=== PATIENT | male | born 1950 | race Caucasian/White ===

== ENCOUNTER 2019-08-16 09:57 | Observation (INO) | payer BC, MEDICARE ==
[2019-08-16] MEDS ORDERED: Sodium Chloride 0.9% 10 ML Syringe FLUSH PRN (10:19)
[2019-08-16] MEDS ORDERED: Sodium Chloride 0.9% 500 ML IV ONE (10:20)
--- NOTE | 2019-08-16 10:24 | EDM.PDOC ---
ED HPI GENERAL MEDICAL PROBLEM - General Chief Complaint: Gastrointestinal Problem Stated Complaint: WEAK, BLOOD IN STOOL Time Seen by Provider: 08/16/19 10:21 Source of Information: Reports: Patient History Limitations: Reports: No Limitations - History of Present Illness INITIAL COMMENTS - FREE TEXT/NARRATIVE: Presents with three episodes of bright red blood per rectum since last night ( 2200, 0300, 0600), patient estimates blood loss at @1 cup per episode. Denies abdominal pain, rectal pain, or N/V. No prior h/o GI bleed. On no anticoagulants except ASA 81mg daily. Drinks EtOH occasionally. Denies use of NSAIDs recently. Complains of cough x 5 days and generalized weakness since last night. He did receive the flu shot this season. Onset Date: 08/15/19 Onset Time: 22:00 - Related Data Allergies Allergy/AdvReac Type Severity Reaction Status Date / Time No Known Allergies Allergy Verified 04/28/13 23:31 Home Meds: Home Meds Aspirin [[place] Aspirin EC] 81 mg PO DAILY 06/27/14 [History] Cholecalciferol (Vitamin D3) [Vitamin D3] 1,000 units PO DAILY 06/27/14 [History ] ClonazePAM [KlonoPIN] 0.5 mg PO ASDIRECTED PRN 06/27/14 [History] Furosemide 40 mg PO DAILY 06/27/14 [History] Levothyroxine [Synthroid] 50 mcg PO DAILY 06/27/14 [History] Lutein Extract/Zeaxanthin Ext [Lutein 15 MG Softgel] 10 mg PO DAILY 06/27/14 [ History] Mirtazapine [Remeron] 15 mg PO DAILY 06/27/14 [History] Multivitamin [Multivitamins] 1 each PO DAILY 06/27/14 [History] Pravastatin [Pravachol] 40 mg PO DAILY 06/27/14 [History] Ranitidine HCl [Ranitidine] 150 mg PO DAILY PRN 06/27/14 [History] amLODIPine Besylate [Amlodipine Besylate] 5 mg PO DAILY 06/27/14 [History] Tamsulosin HCl 0.4 mg PO DAILY 08/16/19 [History] allopurinoL [Zyloprim] 300 mg PO DAILY 08/16/19 [History] Past Medical History Cardiovascular History: Reports: High Cholesterol, Hypertension. Denies: CAD, Heart Failure Gastrointestinal History: Reports: Diverticulosis, GERD Genitourinary History: Reports: Other (See Below) Other Genitourinary History: reports left kidney functioning in low 10's percent. right kidney functioning well/ has been on dialysis before Endocrine/Metabolic History: Reports: Hypothyroidism - Past Surgical History HEENT Surgical History: Reports: Naso-Sinus Surgery, Tonsillectomy Social & Family History - Tobacco Use Tobacco Use Within Last Twelve Months: No - Alcohol Use Alcohol Use History: Yes Alcohol Use Frequency: Rarely - Recreational Drug Use Recreational Drug Use: No ED ROS GENERAL - Review of Systems Review Of Systems: Comprehensive ROS is negative, except as noted in HPI. ED EXAM, GI/ABD - Physical Exam Exam: See Below Exam Limited By: No Limitations General Appearance: Alert, WD/WN, No Apparent Distress Ears: Normal External Exam Nose: Normal Inspection Throat/Mouth: No Airway Compromise Head: Atraumatic, Normocephalic Neck: Normal Inspection, Supple, Full Range of Motion Respiratory/Chest: No Respiratory Distress, Lungs Clear, Normal Breath Sounds Cardiovascular: Regular Rate, Rhythm, No Murmur GI/Abdominal Exam: Soft, Non-Tender, No Distention Rectal (Males) Exam: Other (No external hemorrhoids noted) Back Exam: Full Range of Motion Extremities: Normal Range of Motion Neurological: Alert, Normal Cognition Psychiatric: Normal Affect, Normal Mood Skin Exam: Warm, Dry, Intact Course - Vital Signs Last Recorded V/S: Last Vital Signs Temp 37.0 C 08/16/19 12:52 Pulse 72 08/16/19 12:52 Resp 18 08/16/19 12:52 BP 144/75 H 08/16/19 12:52 Pulse Ox 100 08/16/19 12:52 - Orders/Labs/Meds Orders: Active Orders 24 hr Category Date Time Status Admission Status [Patient Status] [ADT] Routine ADT 08/16/19 12:41 Ordered Abdomen Pelvis wo Cont [CT] Stat Exams 08/16/19 10:26 Taken Sodium Chloride 0.9% [Saline Flush] Med 08/16/19 10:19 Active 10 ml FLUSH ASDIRECTED PRN Saline Lock Insert [OM.PC] Routine Oth 08/16/19 10:19 Ordered Medication Orders Sodium Chloride (Saline Flush) 10 ml FLUSH ASDIRECTED PRN PRN Reason: Keep Vein Open Labs: Laboratory Tests 08/16/19 08/16/19 08/16/19 Range/Units 10:35 10:35 10:35 WBC 5.7 (4.5-12.0) X10-3/uL RBC 3.97 L (4.30-5.75) x10(6)uL Hgb 11.2 L (13.5-17.8) g/dL Hct 34.1 (30.0-51.3) % MCV 85.9 (80-96) fL MCH 28.2 (27.7-33.6) pg MCHC 32.8 (32.2-35.4) g/dL RDW 15.6 H (11.5-15.5) % Plt Count 290 (125-369) X10(3)uL MPV 7.9 (7.4-10.4) fL Neut % (Auto) 78.0 (46-82) % Lymph % (Auto) 11.5 L (13-37) % [place] % (Auto) 8.2 (4-12) % Eos % (Auto) 1 (1.0-5.0) % Baso % (Auto) 2 (0-2) % Neut # (Auto) 4.4 (1.6-8.3) # Lymph # (Auto) 0.7 (0.6-5.0) # [place] # (Auto) 0.5 (0.0-1.3) # Eos # (Auto) 0.0 (0.0-0.8) # Baso # (Auto) 0.1 (0.0-0.2) # PT 9.9 (8.7-11.1) sec INR 1.02 (0.89-1.13) Sodium 144 (135-145) mmol/L Potassium 4.1 (3.5-5.3) mmol/L Chloride 107 (100-110) mmol/L Carbon Dioxide 25 (21-32) mmol/L BUN 19 H (7-18) mg/dL Creatinine 1.6 H (0.70-1.30) mg/dL Est Cr Clr Drug Dosing 47.86 mL/min Estimated GFR (MDRD) 43 L (>60) BUN/Creatinine Ratio 11.9 (9-20) Glucose 137 H (80-116) mg/dL Calcium 8.8 (8.6-10.2) mg/dL Total Bilirubin 0.3 (0.1-1.3) mg/dL AST 18 (5-25) IU/L ALT 23 (12-36) U/L Alkaline Phosphatase 77 (56-112) IU/L Total Protein 6.9 (6.0-8.0) g/dL Albumin 3.1 L (3.2-4.6) g/dL Globulin 3.8 g/dL Albumin/Globulin Ratio 0.8 Blood Type Gel Antibody Screen 08/16/19 Range/Units 10:35 WBC (4.5-12.0) X10-3/uL RBC (4.30-5.75) x10(6)uL Hgb (13.5-17.8) g/dL Hct (30.0-51.3) % MCV (80-96) fL MCH (27.7-33.6) pg MCHC (32.2-35.4) g/dL RDW (11.5-15.5) % Plt Count (125-369) X10(3)uL MPV (7.4-10.4) fL Neut % (Auto) (46-82) % Lymph % (Auto) (13-37) % [place] % (Auto) (4-12) % Eos % (Auto) (1.0-5.0) % Baso % (Auto) (0-2) % Neut # (Auto) (1.6-8.3) # Lymph # (Auto) (0.6-5.0) # [place] # (Auto) (0.0-1.3) # Eos # (Auto) (0.0-0.8) # Baso # (Auto) (0.0-0.2) # PT (8.7-11.1) sec INR (0.89-1.13) Sodium (135-145) mmol/L Potassium (3.5-5.3) mmol/L Chloride (100-110) mmol/L Carbon Dioxide (21-32) mmol/L BUN (7-18) mg/dL Creatinine (0.70-1.30) mg/dL Est Cr Clr Drug Dosing mL/min Estimated GFR (MDRD) (>60) BUN/Creatinine Ratio (9-20) Glucose (80-116) mg/dL Calcium (8.6-10.2) mg/dL Total Bilirubin (0.1-1.3) mg/dL AST (5-25) IU/L ALT (12-36) U/L Alkaline Phosphatase (56-112) IU/L Total Protein (6.0-8.0) g/dL Albumin (3.2-4.6) g/dL Globulin g/dL Albumin/Globulin Ratio Blood Type A POSITIVE Gel Antibody Screen Negative Microbiology 08/16/19 10:15 Influenza Type A Antigen Screen - Final Nasopharyngeal Swab Positive Influenza A Ag Influenza Type B Antigen Screen - Final NEGATIVE INFLUENZA B VIRUS AG REFERENCE RANGE: NEGATIVE Meds: Medications Generic Name Dose Route Start Last Admin Trade Name Freq PRN Reason Stop Dose Admin Sodium Chloride 10 ml 08/16/19 10:19 Saline Flush FLUSH ASDIRECTED PRN Keep Vein Open Discontinued Medications Generic Name Dose Route Start Last Admin Trade Name Freq PRN Reason Stop Dose Admin Sodium Chloride 500 mls @ 500 mls/hr 08/16/19 10:20 08/16/19 11:24 Normal Saline IV 08/16/19 11:19 500 mls/hr .BOLUS ONE Administration - Radiology Interpretation Free Text/Narrative:: CT Abd/Pelvis w/o contrast: No acute abdominal or pelvic process. Diverticulosis. Stable severe left hydronephrosis. Stable 4.1 cm right adrenal adenoma. Hepatic steatosis. 5 mm RLL pulmonary nodule. - Re-Assessments/Exams Free Text/Narrative Re-Assessment/Exam: 08/16/19 12:44 No rectal bleeding in the ED. Dr. Christine consulted, recommends transfer for IR embolization if patient rebleeds , otherwise outpatient follow up for Colonoscopy. Will admit to [facility] for observation, Dr. Dinero. Departure - Departure Time of Disposition: 13:00 Disposition: Refer to Observation Condition: Fair Clinical Impression: Lower GI bleed, Influenza A - Discharge Information *PRESCRIPTION DRUG MONITORING PROGRAM REVIEWED*: No *COPY OF PRESCRIPTION DRUG MONITORING REPORT IN PATIENT LEILA: Not Applicable Referrals: Abundio Aguilar MD [Primary Care Provider] - Forms: ED Department Discharge Sepsis Event Note - Focused Exam Vital Signs: Vital Signs Temp Pulse Resp BP Pulse Ox 08/16/19 12:52 37.0 C 72 18 144/75 H 100 08/16/19 10:20 36.5 C 88 20 141/77 H 100 Date Exam was Performed: 08/16/19 Time Exam was Performed: 12:59 - My Orders Last 24 Hours: My Active Orders 08/16/19 10:19 Sodium Chloride 0.9% [Saline Flush] 10 ml FLUSH ASDIRECTED PRN Saline Lock Insert [OM.PC] Routine 08/16/19 10:26 Abdomen Pelvis wo Cont [CT] Stat 08/16/19 12:41 Admission Status [Patient Status] [ADT] Routine - Assessment/Plan Last 24 Hours: My Active Orders 08/16/19 10:19 Sodium Chloride 0.9% [Saline Flush] 10 ml FLUSH ASDIRECTED PRN Saline Lock Insert [OM.PC] Routine 08/16/19 10:26 Abdomen Pelvis wo Cont [CT] Stat 08/16/19 12:41 Admission Status [Patient Status] [ADT] Routine
[2019-08-16] MEDS ORDERED: Non-Formulary Medication 1 Each (Ranitidine Hcl [Ranitidine] 150 MG) PO PRN (15:13)
--- NOTE | 2019-08-16 15:26 | PCM.HP.2 ---
H&P History of Present Illness - General Date of Service: 08/16/19 Admit Problem/Dx: Admission Diagnosis/Problem Admission Diagnosis/Problem Gastrointestinal hemorrhage Source of Information: Patient History Limitations: Reports: No Limitations - History of Present Illness Initial Comments - Free Text/Narative: This a 69-year-old male patient but states he started having hematochezia about 10:30 or 11 PM last night. He had another stool at 3:30 AM and a 6:30 AM. By 9: 30 it had stopped. He came to the ER and he has noticeable recently. He has history of diverticulosis. The surgeon evaluated him felt that he should be admitted for observation. He has no abdominal pain, nausea, vomiting. The beginning of the week he had some coughing little chills. No fevers, no sore throat. Check influenza A and was positive in the ER. He had a colonoscopy around 2014. He denies dizziness. - Related Data Allergies/Adverse Reactions: Allergies Allergy/AdvReac Type Severity Reaction Status Date / Time No Known Allergies Allergy Verified 08/16/19 13:53 Home Medications: Home Meds Aspirin [[place] Aspirin EC] 81 mg PO BEDTIME 06/27/14 [History] Cholecalciferol (Vitamin D3) [Vitamin D3] 1,000 units PO DAILY 06/27/14 [History ] Furosemide 40 mg PO DAILY 06/27/14 [History] Mirtazapine [Remeron] 15 mg PO BEDTIME 06/27/14 [History] Multivitamin [Multivitamins] 1 each PO DAILY 06/27/14 [History] Pravastatin [Pravachol] 40 mg PO BEDTIME 06/27/14 [History] Ranitidine HCl [Ranitidine] 150 mg PO DAILY PRN 06/27/14 [History] amLODIPine Besylate [Amlodipine Besylate] 5 mg PO DAILY 06/27/14 [History] Levothyroxine 75 mcg PO DAILY 08/16/19 [History] Lutein 10 mg PO DAILY 08/16/19 [History] Tamsulosin HCl 0.4 mg PO BEDTIME 08/16/19 [History] allopurinoL [Zyloprim] 300 mg PO DAILY 08/16/19 [History] Past Medical History Cardiovascular History: Reports: High Cholesterol, Hypertension Gastrointestinal History: Reports: Diverticulosis, GERD Genitourinary History: Reports: Other (See Below) Other Genitourinary History: reports left kidney functioning in low 10's percent. right kidney functioning well/ has been on dialysis before Endocrine/Metabolic History: Reports: Hypothyroidism - Past Surgical History HEENT Surgical History: Reports: Naso-Sinus Surgery, Tonsillectomy GI Surgical History: Reports: Colonoscopy Social & Family History - Tobacco Use Smoking Status *Q: Former Smoker Used Tobacco, but Quit: Yes Month/Year Tobacco Last Used: 40 years ago - Caffeine Use Caffeine Use: Reports: Coffee - Recreational Drug Use Recreational Drug Use: No H&P Review of Systems - Review of Systems: Review Of Systems: See Below General: Reports: Chills HEENT: Reports: No Symptoms Pulmonary: Reports: No Symptoms Cardiovascular: Reports: No Symptoms Gastrointestinal: Reports: Hematemesis Genitourinary: Reports: No Symptoms Musculoskeletal: Reports: No Symptoms Skin: Reports: No Symptoms Psychiatric: Reports: No Symptoms Neurological: Reports: No Symptoms Hematologic/Lymphatic: Reports: No Symptoms Immunologic: Reports: No Symptoms Exam - Exam Exam: See Below - Vital Signs Vital Signs: Last Vital Signs Temp 98.7 F 08/16/19 13:30 Pulse 84 08/16/19 13:30 Resp 20 08/16/19 13:30 BP 139/81 08/16/19 13:30 Pulse Ox 95 08/16/19 13:30 Weight: 310 lb 11.2 oz - Exam General: Alert, Oriented, Cooperative HEENT: Conjunctiva Clear, Hearing Intact, Mucosa Moist & [place], Posterior Pharynx Clear, TMs Clear Neck: Supple, Trachea Midline. No: Carotid Bruit Lungs: Clear to Auscultation, Normal Respiratory Effort Cardiovascular: Regular Rate, Regular Rhythm. No: Tachycardia, Systolic Murmur GI/Abdominal Exam: Normal Bowel Sounds, Soft, Non-Tender, No Organomegaly, No Distention, No Abnormal Bruit, No Mass Rectal (Males) Exam: Other (External rectal done by the ER doctor's report is negative for hemorrhage.) Extremities: Normal Inspection, Normal Range of Motion, Non-Tender, No Pedal Edema Skin: Warm, Dry, Intact Neurological: Normal Gait, Normal Speech, Normal Tone Neuro Extensive - Mental Status: Alert, Oriented x3, Normal Mood/Affect, Normal Cognition, Memory Intact Neuro Extensive - Motor, Sensory, Reflexes: Normal Gait Psychiatric: Alert, Normal Affect, Normal Mood - Patient Data Lab Results Last 24 hrs: Laboratory Results - last 24 hr 08/16/19 08/16/19 08/16/19 Range/Units 10:35 10:35 10:35 WBC 5.7 (4.5-12.0) X10-3/uL RBC 3.97 L (4.30-5.75) x10(6)uL Hgb 11.2 L (13.5-17.8) g/dL Hct 34.1 (30.0-51.3) % MCV 85.9 (80-96) fL MCH 28.2 (27.7-33.6) pg MCHC 32.8 (32.2-35.4) g/dL RDW 15.6 H (11.5-15.5) % Plt Count 290 (125-369) X10(3)uL MPV 7.9 (7.4-10.4) fL Neut % (Auto) 78.0 (46-82) % Lymph % (Auto) 11.5 L (13-37) % [place] % (Auto) 8.2 (4-12) % Eos % (Auto) 1 (1.0-5.0) % Baso % (Auto) 2 (0-2) % Neut # (Auto) 4.4 (1.6-8.3) # Lymph # (Auto) 0.7 (0.6-5.0) # [place] # (Auto) 0.5 (0.0-1.3) # Eos # (Auto) 0.0 (0.0-0.8) # Baso # (Auto) 0.1 (0.0-0.2) # PT 9.9 (8.7-11.1) sec INR 1.02 (0.89-1.13) Sodium 144 (135-145) mmol/L Potassium 4.1 (3.5-5.3) mmol/L Chloride 107 (100-110) mmol/L Carbon Dioxide 25 (21-32) mmol/L BUN 19 H (7-18) mg/dL Creatinine 1.6 H (0.70-1.30) mg/dL Est Cr Clr Drug Dosing 47.86 mL/min Estimated GFR (MDRD) 43 L (>60) BUN/Creatinine Ratio 11.9 (9-20) Glucose 137 H (80-116) mg/dL Calcium 8.8 (8.6-10.2) mg/dL Total Bilirubin 0.3 (0.1-1.3) mg/dL AST 18 (5-25) IU/L ALT 23 (12-36) U/L Alkaline Phosphatase 77 (56-112) IU/L Total Protein 6.9 (6.0-8.0) g/dL Albumin 3.1 L (3.2-4.6) g/dL Globulin 3.8 g/dL Albumin/Globulin Ratio 0.8 Blood Type Gel Antibody Screen 08/16/19 Range/Units 10:35 WBC (4.5-12.0) X10-3/uL RBC (4.30-5.75) x10(6)uL Hgb (13.5-17.8) g/dL Hct (30.0-51.3) % MCV (80-96) fL MCH (27.7-33.6) pg MCHC (32.2-35.4) g/dL RDW (11.5-15.5) % Plt Count (125-369) X10(3)uL MPV (7.4-10.4) fL Neut % (Auto) (46-82) % Lymph % (Auto) (13-37) % [place] % (Auto) (4-12) % Eos % (Auto) (1.0-5.0) % Baso % (Auto) (0-2) % Neut # (Auto) (1.6-8.3) # Lymph # (Auto) (0.6-5.0) # [place] # (Auto) (0.0-1.3) # Eos # (Auto) (0.0-0.8) # Baso # (Auto) (0.0-0.2) # PT (8.7-11.1) sec INR (0.89-1.13) Sodium (135-145) mmol/L Potassium (3.5-5.3) mmol/L Chloride (100-110) mmol/L Carbon Dioxide (21-32) mmol/L BUN (7-18) mg/dL Creatinine (0.70-1.30) mg/dL Est Cr Clr Drug Dosing mL/min Estimated GFR (MDRD) (>60) BUN/Creatinine Ratio (9-20) Glucose (80-116) mg/dL Calcium (8.6-10.2) mg/dL Total Bilirubin (0.1-1.3) mg/dL AST (5-25) IU/L ALT (12-36) U/L Alkaline Phosphatase (56-112) IU/L Total Protein (6.0-8.0) g/dL Albumin (3.2-4.6) g/dL Globulin g/dL Albumin/Globulin Ratio Blood Type A POSITIVE Gel Antibody Screen Negative Result Diagrams: 08/16/19 10:35 08/16/19 10:35 John Results Last 24 hrs: Microbiology 08/16/19 10:15 Influenza Type A Antigen Screen - Final Nasopharyngeal Swab Positive Influenza A Ag Influenza Type B Antigen Screen - Final NEGATIVE INFLUENZA B VIRUS AG REFERENCE RANGE: NEGATIVE Sepsis Event Note - Evaluation Sepsis Screening Result: No Definite Risk - Focused Exam Vital Signs: Vital Signs Temp Temp Pulse Resp BP Pulse Ox 08/16/19 13:30 98.7 F 84 20 139/81 95 08/16/19 12:52 98.6 F 72 18 144/75 H 100 08/16/19 10:20 97.7 F 88 20 141/77 H 100 Date Exam was Performed: 08/16/19 Time Exam was Performed: 15:20 - Problem List (1) Palliative care status SNOMED Code(s): 254090159 ICD Code: Z51.5 - ENCOUNTER FOR PALLIATIVE CARE Status: Acute Current Visit: Yes (2) Influenza A SNOMED Code(s): 707115524 ICD Code: J10.1 - FLU DUE TO OTH IDENT INFLUENZA VIRUS W OTH RESP MANIFEST Status: Acute Current Visit: Yes (3) Lower GI bleed SNOMED Code(s): 22899887 ICD Code: K92.2 - GASTROINTESTINAL HEMORRHAGE, UNSPECIFIED Status: Acute Current Visit: Yes (4) Acute kidney injury SNOMED Code(s): 66967624, 75734961 ICD Code: N17.9 - ACUTE KIDNEY FAILURE, UNSPECIFIED Status: Acute Current Visit: Yes Problem List Initiated/Reviewed/Updated: Yes Orders Last 24hrs: Active Orders 24 hr Category Date Time Status Admission Status [Patient Status] [ADT] Routine ADT 08/16/19 12:41 Active Up ad Jeff [RC] ASDIRECTED Care 08/16/19 15:15 Active Clear Liquid Diet [DIET] Diet 08/16/19 Dinner Active Abdomen Pelvis wo Cont [CT] Stat Exams 08/16/19 10:26 Taken BASIC METABOLIC PANEL,BMP [CHEM] AM Lab 08/17/19 06:00 Ordered HEMOGLOBIN/HEMATOCRIT,HH [HEME] Q4H Lab 08/16/19 16:30 Ordered HEMOGLOBIN/HEMATOCRIT,HH [HEME] Q4H Lab 08/16/19 20:30 Ordered HEMOGLOBIN/HEMATOCRIT,HH [HEME] Q4H Lab 08/17/19 00:30 Ordered HEMOGLOBIN/HEMATOCRIT,HH [HEME] Q4H Lab 08/17/19 04:30 Ordered Cholecalciferol (Vitamin D3) [Vitamin D3] Med 08/17/19 09:00 Ordered DOSE mcg PO DAILY Furosemide [Lasix] Med 08/17/19 09:00 Ordered 40 mg PO DAILY Levothyroxine Med 08/17/19 09:00 Ordered 75 mcg PO DAILY Lutein Med 08/17/19 09:00 Ordered 10 mg PO DAILY Mirtazapine [Remeron] Med 08/16/19 21:00 Ordered 15 mg PO BEDTIME Multivitamin [Multivitamins] Med 08/17/19 09:00 Ordered 1 each PO DAILY Pravastatin [Pravachol] Med 08/16/19 21:00 Ordered 40 mg PO BEDTIME Ranitidine HCl [Ranitidine] Med 08/16/19 15:13 Ordered 150 mg PO DAILY PRN Sodium Chloride 0.9% [Saline Flush] Med 08/16/19 10:19 Active 10 ml FLUSH ASDIRECTED PRN Tamsulosin [Flomax] Med 08/16/19 21:00 Ordered 0.4 mg PO BEDTIME allopurinoL [Zyloprim] Med 08/17/19 09:00 Ordered 300 mg PO DAILY amLODIPine [Norvasc] Med 08/17/19 09:00 Ordered 5 mg PO DAILY SCD [Sequential Compression Device] [OM.PC] Routine Oth 08/16/19 15:16 Ordered Saline Lock Insert [OM.PC] Routine Oth 08/16/19 10:19 Ordered Code Status [Resuscitation Status] Routine Resus Stat 08/16/19 14:35 Ordered Medication Orders Allopurinol (Zyloprim) 300 mg PO DAILY SAIDA Amlodipine Besylate (Norvasc) 5 mg PO DAILY SAIDA Cholecalciferol (Vitamin D3) mcg PO DAILY SAIDA Furosemide (Lasix) 40 mg PO DAILY SAIDA Levothyroxine Sodium (Levothyroxine) 75 mcg PO DAILY SAIDA Lutein (Lutein) 10 mg PO DAILY SAIDA Mirtazapine (Remeron) 15 mg PO BEDTIME SAIDA Non-Formulary Medication (Multivitamin [Multivitamins]) 1 each PO DAILY SAIDA Non-Formulary Medication (Pravastatin [Pravachol]) 40 mg PO BEDTIME SAIDA Non-Formulary Medication (Ranitidine Hcl [Ranitidine]) 150 mg PO DAILY PRN PRN Reason: Heartburn Sodium Chloride (Saline Flush) 10 ml FLUSH ASDIRECTED PRN PRN Reason: Keep Vein Open Tamsulosin HCl (Flomax) 0.4 mg PO BEDTIME SAIDA Assessment/Plan Comment:: 1. Admit for observation. 2. Per Dr. Christine if the patient starts to bleed again he should be transferred to [place] for interventional radiology. If he does not have any further bleeding overnight he can go home. 3. Up ad jeff. 4. Clear liquid diet 5. Hold anticoagulation including aspirin. Use SCD for DVT prophylaxis. 6. Reorder his regular medications except aspirin. 7. Repeat hemoglobin every 4 hours. 8. Cross and type II units RBCs. 9. Week. BMP in a.m. - Mortality Measure Prognosis:: Good
[2019-08-16] MEDS ORDERED: Mirtazapine 15 MG Tab *PTOM PO SCH (21:00)
[2019-08-16] MEDS ORDERED: Tamsulosin 0.4 MG Cap.ER *PTOM PO SCH (21:00)
--- NOTE | 2019-08-17 07:59 | PCM.PN ---
- General Info Date of Service: 08/17/19 Admission Dx/Problem (Free Text): Patient states she's had no bloody stools since she's been admitted. His no abdominal pain, dizziness, chest pain or shortness of breath. He says he has not had a BM since she's been you. He is passing gas and no blood was coming out. - Patient Data Vitals - Most Recent: Last Vital Signs Temp 97.2 F 08/17/19 00:00 Pulse 77 08/17/19 00:00 Resp 18 08/17/19 00:00 BP 144/88 H 08/17/19 00:00 Pulse Ox 95 08/17/19 00:00 Weight - Most Recent: 310 lb 11.2 oz Lab Results Last 24 Hours: Laboratory Results - last 24 hr 08/16/19 08/16/19 08/16/19 Range/Units 10:35 10:35 10:35 WBC 5.7 (4.5-12.0) X10-3/uL RBC 3.97 L (4.30-5.75) x10(6)uL Hgb 11.2 L (13.5-17.8) g/dL Hct 34.1 (30.0-51.3) % MCV 85.9 (80-96) fL MCH 28.2 (27.7-33.6) pg MCHC 32.8 (32.2-35.4) g/dL RDW 15.6 H (11.5-15.5) % Plt Count 290 (125-369) X10(3)uL MPV 7.9 (7.4-10.4) fL Neut % (Auto) 78.0 (46-82) % Lymph % (Auto) 11.5 L (13-37) % [place] % (Auto) 8.2 (4-12) % Eos % (Auto) 1 (1.0-5.0) % Baso % (Auto) 2 (0-2) % Neut # (Auto) 4.4 (1.6-8.3) # Lymph # (Auto) 0.7 (0.6-5.0) # [place] # (Auto) 0.5 (0.0-1.3) # Eos # (Auto) 0.0 (0.0-0.8) # Baso # (Auto) 0.1 (0.0-0.2) # PT 9.9 (8.7-11.1) sec INR 1.02 (0.89-1.13) Sodium 144 (135-145) mmol/L Potassium 4.1 (3.5-5.3) mmol/L Chloride 107 (100-110) mmol/L Carbon Dioxide 25 (21-32) mmol/L BUN 19 H (7-18) mg/dL Creatinine 1.6 H (0.70-1.30) mg/dL Est Cr Clr Drug Dosing 47.86 mL/min Estimated GFR (MDRD) 43 L (>60) BUN/Creatinine Ratio 11.9 (9-20) Glucose 137 H (80-116) mg/dL Calcium 8.8 (8.6-10.2) mg/dL Total Bilirubin 0.3 (0.1-1.3) mg/dL AST 18 (5-25) IU/L ALT 23 (12-36) U/L Alkaline Phosphatase 77 (56-112) IU/L Total Protein 6.9 (6.0-8.0) g/dL Albumin 3.1 L (3.2-4.6) g/dL Globulin 3.8 g/dL Albumin/Globulin Ratio 0.8 Blood Type Gel Antibody Screen 08/16/19 08/16/19 08/16/19 Range/Units 10:35 16:30 21:00 WBC (4.5-12.0) X10-3/uL RBC (4.30-5.75) x10(6)uL Hgb 10.6 L 9.9 L (13.5-17.8) g/dL Hct 32.0 30.6 (30.0-51.3) % MCV (80-96) fL MCH (27.7-33.6) pg MCHC (32.2-35.4) g/dL RDW (11.5-15.5) % Plt Count (125-369) X10(3)uL MPV (7.4-10.4) fL Neut % (Auto) (46-82) % Lymph % (Auto) (13-37) % [place] % (Auto) (4-12) % Eos % (Auto) (1.0-5.0) % Baso % (Auto) (0-2) % Neut # (Auto) (1.6-8.3) # Lymph # (Auto) (0.6-5.0) # [place] # (Auto) (0.0-1.3) # Eos # (Auto) (0.0-0.8) # Baso # (Auto) (0.0-0.2) # PT (8.7-11.1) sec INR (0.89-1.13) Sodium (135-145) mmol/L Potassium (3.5-5.3) mmol/L Chloride (100-110) mmol/L Carbon Dioxide (21-32) mmol/L BUN (7-18) mg/dL Creatinine (0.70-1.30) mg/dL Est Cr Clr Drug Dosing mL/min Estimated GFR (MDRD) (>60) BUN/Creatinine Ratio (9-20) Glucose (80-116) mg/dL Calcium (8.6-10.2) mg/dL Total Bilirubin (0.1-1.3) mg/dL AST (5-25) IU/L ALT (12-36) U/L Alkaline Phosphatase (56-112) IU/L Total Protein (6.0-8.0) g/dL Albumin (3.2-4.6) g/dL Globulin g/dL Albumin/Globulin Ratio Blood Type A POSITIVE Gel Antibody Screen Negative 08/17/19 08/17/19 Range/Units 06:30 06:30 WBC 5.1 (4.5-12.0) X10-3/uL RBC 3.45 L (4.30-5.75) x10(6)uL Hgb 9.7 L (13.5-17.8) g/dL Hct 29.5 L (30.0-51.3) % MCV 85.6 (80-96) fL MCH 28.0 (27.7-33.6) pg MCHC 32.7 (32.2-35.4) g/dL RDW 15.8 H (11.5-15.5) % Plt Count 268 (125-369) X10(3)uL MPV 7.2 L (7.4-10.4) fL Neut % (Auto) 59.5 (46-82) % Lymph % (Auto) 27.8 (13-37) % [place] % (Auto) 9.0 (4-12) % Eos % (Auto) 3 (1.0-5.0) % Baso % (Auto) 1 (0-2) % Neut # (Auto) 3.1 (1.6-8.3) # Lymph # (Auto) 1.4 (0.6-5.0) # [place] # (Auto) 0.5 (0.0-1.3) # Eos # (Auto) 0.1 (0.0-0.8) # Baso # (Auto) 0.0 (0.0-0.2) # PT (8.7-11.1) sec INR (0.89-1.13) Sodium 146 H (135-145) mmol/L Potassium 4.6 (3.5-5.3) mmol/L Chloride 110 (100-110) mmol/L Carbon Dioxide 28 (21-32) mmol/L BUN 16 (7-18) mg/dL Creatinine 1.5 H (0.70-1.30) mg/dL Est Cr Clr Drug Dosing 51.05 mL/min Estimated GFR (MDRD) 46 L (>60) BUN/Creatinine Ratio 10.7 (9-20) Glucose 99 (80-116) mg/dL Calcium 8.7 (8.6-10.2) mg/dL Total Bilirubin (0.1-1.3) mg/dL AST (5-25) IU/L ALT (12-36) U/L Alkaline Phosphatase (56-112) IU/L Total Protein (6.0-8.0) g/dL Albumin (3.2-4.6) g/dL Globulin g/dL Albumin/Globulin Ratio Blood Type Gel Antibody Screen John Results Last 24 Hours: Microbiology 08/16/19 10:15 Influenza Type A Antigen Screen - Final Nasopharyngeal Swab Positive Influenza A Ag Influenza Type B Antigen Screen - Final NEGATIVE INFLUENZA B VIRUS AG REFERENCE RANGE: NEGATIVE Med Orders - Current: Current Medications Allopurinol (Zyloprim) 300 mg PO DAILY [facility] Amlodipine Besylate (Norvasc) 5 mg PO DAILY [facility] Cholecalciferol (Vitamin D3) mcg PO DAILY [facility] Furosemide (Lasix) 40 mg PO DAILY [facility] Levothyroxine Sodium (Levothyroxine) 75 mcg PO DAILY [facility] Lutein (Lutein) 10 mg PO DAILY [facility] Mirtazapine (Remeron) 15 mg PO BEDTIME [facility] Last Admin: 08/16/19 20:56 Dose: 15 mg Non-Formulary Medication (Multivitamin [Multivitamins]) 1 each PO DAILY [facility] (Pravastatin [ Pravachol] 40 Mg) * Ptom 40 mg PO BEDTIME [facility] Last Admin: 08/16/19 20:56 Dose: 40 mg Non-Formulary Medication (Ranitidine Hcl [Ranitidine]) 150 mg PO DAILY PRN PRN Reason: Heartburn Sodium Chloride (Saline Flush) 10 ml FLUSH ASDIRECTED PRN PRN Reason: Keep Vein Open Tamsulosin HCl (Flomax) 0.4 mg PO BEDTIME [facility] Last Admin: 08/16/19 20:56 Dose: 0.4 mg Discontinued Medications Sodium Chloride (Normal Saline) 500 mls @ 500 mls/hr IV .BOLUS ONE Stop: 08/16/19 11:19 Last Admin: 08/16/19 11:24 Dose: 500 mls/hr - Exam General: Alert, Oriented Lungs: Normal Respiratory Effort GI/Abdominal Exam: Normal Bowel Sounds, Soft, Non-Tender, No Distention Sepsis Event Note - Evaluation Sepsis Screening Result: No Definite Risk - Focused Exam Vital Signs: Vital Signs Temp Pulse Resp BP Pulse Ox 08/17/19 00:00 97.2 F 77 18 144/88 H 95 08/16/19 20:00 98.3 F 82 16 140/87 96 Date Exam was Performed: 08/17/19 Time Exam was Performed: 07:57 - Problem List & Annotations (1) Palliative care status SNOMED Code(s): 329432324 Code(s): Z51.5 - ENCOUNTER FOR PALLIATIVE CARE Status: Acute Current Visit: Yes (2) Influenza A SNOMED Code(s): 129839060 Code(s): J10.1 - FLU DUE TO OTH IDENT INFLUENZA VIRUS W OTH RESP MANIFEST Status: Acute Current Visit: Yes (3) Lower GI bleed SNOMED Code(s): 95200558 Code(s): K92.2 - GASTROINTESTINAL HEMORRHAGE, UNSPECIFIED Status: Acute Current Visit: Yes (4) Acute kidney injury SNOMED Code(s): 09714746, 22152168 Code(s): N17.9 - ACUTE KIDNEY FAILURE, UNSPECIFIED Status: Acute Current Visit: Yes - Problem List Review Problem List Initiated/Reviewed/Updated: Yes - My Orders Last 24 Hours: My Active Orders 08/16/19 14:35 Code Status [Resuscitation Status] Routine 08/16/19 15:13 Ranitidine HCl [Ranitidine] 150 mg PO DAILY PRN 08/16/19 15:15 Up [place] [RC] ASDIRECTED 08/16/19 15:16 SCD [Sequential Compression Device] [OM.PC] Routine 08/16/19 21:00 Mirtazapine [Remeron] 15 mg PO BEDTIME Pravastatin [Pravachol] 40 mg PO BEDTIME Tamsulosin [Flomax] 0.4 mg PO BEDTIME 08/17/19 09:00 Cholecalciferol (Vitamin D3) [Vitamin D3] DOSE mcg PO DAILY Furosemide [Lasix] 40 mg PO DAILY Levothyroxine 75 mcg PO DAILY Lutein 10 mg PO DAILY Multivitamin [Multivitamins] 1 each PO DAILY allopurinoL [Zyloprim] 300 mg PO DAILY amLODIPine [Norvasc] 5 mg PO DAILY 08/17/19 Breakfast Regular Diet [DIET] - Plan Plan:: 1. Will not breakfast this morning see if he has a BM. He's dropped his hemoglobin from 11 to 9.7. He appears to be stable at this time. 2. Will confer with Dr. Christine the surgeon later this morning to see if it's okay for him to be discharged if he doesn't have any more bloody stools.
[2019-08-17 08:03] VITALS: BP 142/79
[2019-08-17] MEDS ORDERED: amLODIPine 10 MG Tab *PTOM PO SCH (09:00)
[2019-08-17] MEDS ORDERED: Allopurinol 300 MG Tab *PTOM PO SCH (09:00)
[2019-08-17] MEDS ORDERED: Non-Formulary Medication 1 Each (Multivitamin [Multivitamins] 1 EACH) PO SCH (09:00)
[2019-08-17] MEDS ORDERED: Cholecalciferol (Vitamin D3) 25 MCG Tab PO SCH (09:00)
[2019-08-17] MEDS ORDERED: Furosemide 40 MG Tab *PTOM PO SCH (09:00)
--- NOTE | 2019-08-17 09:04 | PCM.SN ---
- Free Text/Narrative Note: discussed care with Dr. Christine. Patient did not have a BM after his breakfast. Dr. Christine felt that he could go home and follow-up with him in 1-2 weeks. He'll need a colonoscopy again spent 5 years. So I will discharge him home on iron a day. He will see Dr. Christine in 1-2 weeks with a CBC. He is to hold all nonsteroidal anti-inflammatories including is asked for. If he starts to rebleed he can come back here for recheck or go to [facility] so that he can have IR do an embolization.
--- NOTE | 2019-08-17 09:12 | PCM.DCSUM1 ---
Discharge Summary - Hospital Course Free Text/Narrative:: Hospital course-patient was admitted for observation. He initially put on clear liquids and then later in the pain was advanced to full diet. The patient did not have another bloody stool while he was here overnight. His initial hemoglobin was over 11 and then by the evening dropped down to 9.9. In the morning of the next day was 9.7. Patient was passing flatus but did not have a BM. He had no more bleeding. Talk to Dr. Christine who felt that he could be discharged and follow-up in about 1-2 weeks and then have a colonoscopy scheduled. We will start him on iron pill once a day and he'll hold nonsteroidal anti-inflammatories including his aspirin. I advised the patient to add fiber to his diet. I told the patient if he does rebleed he can come here for check or [facility] because he will need interventional radiology. Brief History: This a 69-year-old male patient but states he started having hematochezia about 10:30 or 11 PM last night. He had another stool at 3:30 AM and a 6:30 AM. By 9:30 it had stopped. He came to the ER and he has noticeable recently. He has history of diverticulosis. The surgeon evaluated him felt that he should be admitted for observation. He has no abdominal pain, nausea, vomiting. The beginning of the week he had some coughing little chills. No fevers, no sore throat. Check influenza A and was positive in the ER. He had a colonoscopy around 2014. He denies dizziness. Diagnosis: Stroke: No - Discharge Data Discharge Date: 08/17/19 Discharge Disposition: Home, Self-Care 01 Condition: Good - Referral to Home Health Primary Care Physician: Abundio Aguilar MD - Discharge Diagnosis/Problem(s) (1) Palliative care status SNOMED Code(s): 730796811 ICD Code: Z51.5 - ENCOUNTER FOR PALLIATIVE CARE Status: Acute Current Visit: Yes (2) Influenza A SNOMED Code(s): 481636610 ICD Code: J10.1 - FLU DUE TO OTH IDENT INFLUENZA VIRUS W OTH RESP MANIFEST Status: Acute Current Visit: Yes (3) Lower GI bleed SNOMED Code(s): 71298977 ICD Code: K92.2 - GASTROINTESTINAL HEMORRHAGE, UNSPECIFIED Status: Acute Current Visit: Yes (4) Acute kidney injury SNOMED Code(s): 33652196, 90752297 ICD Code: N17.9 - ACUTE KIDNEY FAILURE, UNSPECIFIED Status: Acute Current Visit: Yes - Patient Instructions Diet, Other: High fiber Activity: As Tolerated Driving: May Drive Today Showering/Bathing: May Shower Other/Special Instructions: 1. recheck with Dr Christine in 1-2 weeks with a CBC. 2. Avoid NSAIDS. 3. Recheck here or [facility] if he re-bleeds. - Discharge Plan *PRESCRIPTION DRUG MONITORING PROGRAM REVIEWED*: No *COPY OF PRESCRIPTION DRUG MONITORING REPORT IN PATIENT LEILA: Not Applicable Prescriptions/Med Rec: Iron,Carbonyl/Vit C/Vit B12/Fa [Iron 100 Plus Tablet] 1 each PO DAILY #30 tablet Home Medications: Home Meds Cholecalciferol (Vitamin D3) [Vitamin D3] 1,000 units PO DAILY 06/27/14 [History ] Furosemide 40 mg PO DAILY 06/27/14 [History] Mirtazapine [Remeron] 15 mg PO BEDTIME 06/27/14 [History] Multivitamin [Multivitamins] 1 each PO DAILY 06/27/14 [History] Pravastatin [Pravachol] 40 mg PO BEDTIME 06/27/14 [History] Ranitidine HCl [Ranitidine] 150 mg PO DAILY PRN 06/27/14 [History] amLODIPine Besylate [Amlodipine Besylate] 5 mg PO DAILY 06/27/14 [History] Levothyroxine 75 mcg PO DAILY 08/16/19 [History] Lutein 10 mg PO DAILY 08/16/19 [History] Tamsulosin HCl 0.4 mg PO BEDTIME 08/16/19 [History] allopurinoL [Zyloprim] 300 mg PO DAILY 08/16/19 [History] Iron,Carbonyl/Vit C/Vit B12/Fa [Iron 100 Plus Tablet] 1 each PO DAILY #30 tablet 08/17/19 [Rx] Patient Handouts: Influenza, Adult, [id number], Venous Thromboembolism Prevention Forms: ED Department Discharge Referrals: Abundio Aguilar MD [Primary Care Provider] - - Discharge Summary/Plan Comment DC Time >30 min.: No - Patient Data Vitals - Most Recent: Last Vital Signs Temp 97.2 F 08/17/19 00:00 Pulse 77 08/17/19 00:00 Resp 18 08/17/19 00:00 BP 142/79 H 08/17/19 08:02 Pulse Ox 95 08/17/19 00:00 Weight - Most Recent: 310 lb 11.2 oz Lab Results - Last 24 hrs: Laboratory Results - last 24 hr 08/16/19 08/16/19 08/16/19 Range/Units 10:35 10:35 10:35 WBC 5.7 (4.5-12.0) X10-3/uL RBC 3.97 L (4.30-5.75) x10(6)uL Hgb 11.2 L (13.5-17.8) g/dL Hct 34.1 (30.0-51.3) % MCV 85.9 (80-96) fL MCH 28.2 (27.7-33.6) pg MCHC 32.8 (32.2-35.4) g/dL RDW 15.6 H (11.5-15.5) % Plt Count 290 (125-369) X10(3)uL MPV 7.9 (7.4-10.4) fL Neut % (Auto) 78.0 (46-82) % Lymph % (Auto) 11.5 L (13-37) % [place] % (Auto) 8.2 (4-12) % Eos % (Auto) 1 (1.0-5.0) % Baso % (Auto) 2 (0-2) % Neut # (Auto) 4.4 (1.6-8.3) # Lymph # (Auto) 0.7 (0.6-5.0) # [place] # (Auto) 0.5 (0.0-1.3) # Eos # (Auto) 0.0 (0.0-0.8) # Baso # (Auto) 0.1 (0.0-0.2) # PT 9.9 (8.7-11.1) sec INR 1.02 (0.89-1.13) Sodium 144 (135-145) mmol/L Potassium 4.1 (3.5-5.3) mmol/L Chloride 107 (100-110) mmol/L Carbon Dioxide 25 (21-32) mmol/L BUN 19 H (7-18) mg/dL Creatinine 1.6 H (0.70-1.30) mg/dL Est Cr Clr Drug Dosing 47.86 mL/min Estimated GFR (MDRD) 43 L (>60) BUN/Creatinine Ratio 11.9 (9-20) Glucose 137 H (80-116) mg/dL Calcium 8.8 (8.6-10.2) mg/dL Total Bilirubin 0.3 (0.1-1.3) mg/dL AST 18 (5-25) IU/L ALT 23 (12-36) U/L Alkaline Phosphatase 77 (56-112) IU/L Total Protein 6.9 (6.0-8.0) g/dL Albumin 3.1 L (3.2-4.6) g/dL Globulin 3.8 g/dL Albumin/Globulin Ratio 0.8 Blood Type Gel Antibody Screen 08/16/19 08/16/19 08/16/19 Range/Units 10:35 16:30 21:00 WBC (4.5-12.0) X10-3/uL RBC (4.30-5.75) x10(6)uL Hgb 10.6 L 9.9 L (13.5-17.8) g/dL Hct 32.0 30.6 (30.0-51.3) % MCV (80-96) fL MCH (27.7-33.6) pg MCHC (32.2-35.4) g/dL RDW (11.5-15.5) % Plt Count (125-369) X10(3)uL MPV (7.4-10.4) fL Neut % (Auto) (46-82) % Lymph % (Auto) (13-37) % [place] % (Auto) (4-12) % Eos % (Auto) (1.0-5.0) % Baso % (Auto) (0-2) % Neut # (Auto) (1.6-8.3) # Lymph # (Auto) (0.6-5.0) # [place] # (Auto) (0.0-1.3) # Eos # (Auto) (0.0-0.8) # Baso # (Auto) (0.0-0.2) # PT (8.7-11.1) sec INR (0.89-1.13) Sodium (135-145) mmol/L Potassium (3.5-5.3) mmol/L Chloride (100-110) mmol/L Carbon Dioxide (21-32) mmol/L BUN (7-18) mg/dL Creatinine (0.70-1.30) mg/dL Est Cr Clr Drug Dosing mL/min Estimated GFR (MDRD) (>60) BUN/Creatinine Ratio (9-20) Glucose (80-116) mg/dL Calcium (8.6-10.2) mg/dL Total Bilirubin (0.1-1.3) mg/dL AST (5-25) IU/L ALT (12-36) U/L Alkaline Phosphatase (56-112) IU/L Total Protein (6.0-8.0) g/dL Albumin (3.2-4.6) g/dL Globulin g/dL Albumin/Globulin Ratio Blood Type A POSITIVE Gel Antibody Screen Negative 08/17/19 08/17/19 Range/Units 06:30 06:30 WBC 5.1 (4.5-12.0) X10-3/uL RBC 3.45 L (4.30-5.75) x10(6)uL Hgb 9.7 L (13.5-17.8) g/dL Hct 29.5 L (30.0-51.3) % MCV 85.6 (80-96) fL MCH 28.0 (27.7-33.6) pg MCHC 32.7 (32.2-35.4) g/dL RDW 15.8 H (11.5-15.5) % Plt Count 268 (125-369) X10(3)uL MPV 7.2 L (7.4-10.4) fL Neut % (Auto) 59.5 (46-82) % Lymph % (Auto) 27.8 (13-37) % [place] % (Auto) 9.0 (4-12) % Eos % (Auto) 3 (1.0-5.0) % Baso % (Auto) 1 (0-2) % Neut # (Auto) 3.1 (1.6-8.3) # Lymph # (Auto) 1.4 (0.6-5.0) # [place] # (Auto) 0.5 (0.0-1.3) # Eos # (Auto) 0.1 (0.0-0.8) # Baso # (Auto) 0.0 (0.0-0.2) # PT (8.7-11.1) sec INR (0.89-1.13) Sodium 146 H (135-145) mmol/L Potassium 4.6 (3.5-5.3) mmol/L Chloride 110 (100-110) mmol/L Carbon Dioxide 28 (21-32) mmol/L BUN 16 (7-18) mg/dL Creatinine 1.5 H (0.70-1.30) mg/dL Est Cr Clr Drug Dosing 51.05 mL/min Estimated GFR (MDRD) 46 L (>60) BUN/Creatinine Ratio 10.7 (9-20) Glucose 99 (80-116) mg/dL Calcium 8.7 (8.6-10.2) mg/dL Total Bilirubin (0.1-1.3) mg/dL AST (5-25) IU/L ALT (12-36) U/L Alkaline Phosphatase (56-112) IU/L Total Protein (6.0-8.0) g/dL Albumin (3.2-4.6) g/dL Globulin g/dL Albumin/Globulin Ratio Blood Type Gel Antibody Screen [id number] Results - Last 24 hrs: Microbiology 08/16/19 10:15 Influenza Type A Antigen Screen - Final Nasopharyngeal Swab Positive Influenza A Ag Influenza Type B Antigen Screen - Final NEGATIVE INFLUENZA B VIRUS AG REFERENCE RANGE: NEGATIVE Med Orders - Current: Current Medications Allopurinol (Zyloprim) 300 mg PO DAILY [facility] Last Admin: 08/17/19 08:02 Dose: 300 mg Amlodipine Besylate (Norvasc) 5 mg PO DAILY [facility] Last Admin: 08/17/19 08:02 Dose: 5 mg Cholecalciferol (Vitamin D3) mcg PO DAILY [facility] Furosemide (Lasix) 40 mg PO DAILY [facility] Last Admin: 08/17/19 08:03 Dose: 40 mg Levothyroxine Sodium (Levothyroxine) 75 mcg PO DAILY [facility] Last Admin: 08/17/19 08:02 Dose: 75 mcg Lutein (Lutein) 10 mg PO DAILY [facility] Mirtazapine (Remeron) 15 mg PO BEDTIME [facility] Last Admin: 08/16/19 20:56 Dose: 15 mg Non-Formulary Medication (Multivitamin [Multivitamins]) 1 each PO DAILY [facility] (Pravastatin [ Pravachol] 40 Mg) * Ptom 40 mg PO BEDTIME [facility] Last Admin: 08/16/19 20:56 Dose: 40 mg Non-Formulary Medication (Ranitidine Hcl [Ranitidine]) 150 mg PO DAILY PRN PRN Reason: Heartburn Sodium Chloride (Saline Flush) 10 ml FLUSH ASDIRECTED PRN PRN Reason: Keep Vein Open Tamsulosin HCl (Flomax) 0.4 mg PO BEDTIME [facility] Last Admin: 08/16/19 20:56 Dose: 0.4 mg Discontinued Medications Sodium Chloride (Normal Saline) 500 mls @ 500 mls/hr IV .BOLUS ONE Stop: 08/16/19 11:19 Last Admin: 08/16/19 11:24 Dose: 500 mls/hr
[2019-08-17 10:52] VITALS: PULSE 67
== END 2019-08-17 10:13 | disposition home or self-care (01) ==
LOC: FB.ED 09:57 → FB.MS 12:41
PROVIDERS: ADMIT Family Medicine; ATTEND Family Medicine
DX: K92.1 Melena (principal); J10.1 Influenza due to other identified influenza virus with other respiratory manifestations; K21.9 Gastro-esophageal reflux disease without esophagitis; N17.9 Acute kidney failure, unspecified; Z51.5 Encounter for palliative care; I10 Essential (primary) hypertension; E78.00 Pure hypercholesterolemia, unspecified; E03.9 Hypothyroidism, unspecified; Z87.891 Personal history of nicotine dependence; Z79.82 Long term (current) use of aspirin; Z79.899 Other long term (current) drug therapy
CPT/HCPCS: 36415; 74176; 80048; 80053; 85014; 85018; 85025; 85610; 86850; 86900; 86901; 87804; 96360; 99217; 99219; 99284; 99285; A9270; G0378; J7040

== ENCOUNTER 2019-09-17 07:31 | Day surgery (SDC) | payer MEDICARE ==
[~2019-09-17 07:31] MED LIST: Lactated Ringers 1,000 ML IV SCH; Sodium Chloride 0.9% 10 ML Syringe FLUSH PRN
[2019-09-17] MEDS ORDERED: Propofol 200 MG/20 ML SDV IV ONE (07:32)
[2019-09-17] MEDS ORDERED: Lactated Ringers 1,000 ML IV ONE (07:32)
[2019-09-17] MEDS ORDERED: Lidocaine 1% PF 2 ML SDV INJECT ONE (07:32)
--- NOTE | 2019-09-17 09:19 | PCM.HPR ---
H & P Addendum review - H & P Addendum Review Date of Original H & P: 08/26/19 Date Reviewed: 09/17/19 Time Reviewed: 09:18 Patient was Examined: No Changes
--- NOTE | 2019-09-17 10:15 | PCM.OPNOTE ---
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 hx Polyps and Diverticulosis Post-Op Diagnosis: Same Anesthesia Technique: MAC Primary Surgeon: Austin Christine Complications: None Condition: Good
--- NOTE | 2019-09-17 12:10 | OR ---
DATE OF OPERATION: 09/17/2019 SURGEON: Austin Christine MD PREOPERATIVE DIAGNOSES: 1. Hematochezia. 2. History of colon polyps. 3. Diverticulosis. 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 2. Sigmoid colon polyp. 3. Sigmoid diverticulosis. PROCEDURE PERFORMED: Colonoscopy with polypectomy and biopsies. ANESTHESIA: IV sedation. DESCRIPTION OF PROCEDURE: The patient was brought to the procedure room, where he was placed on his left side and IV sedation administered. Digital rectal exam was performed, which was normal. The colonoscope was inserted and advanced to the level of the cecum without difficulty. Cecal position was confirmed by identifying the appendiceal lumen. 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 I did several biopsies of this with minimal oozing. Photographs were taken. The ascending, transverse, and descending colon were normal. The sigmoid colon had several small diverticula present. At 30 cm, was a large 10 mm pedunculated polyp removed with the cautery snare and retrieved for pathology review. Rectum was normal and retroflexion was normal. Air was removed and the scope withdrawn. The patient tolerated the procedure well and returned to Recovery in stable condition. RECOMMENDATIONS: The patient had a CT scan of the abdomen and pelvis on 08/16 during his hospitalization for the bleeding. The report in his notes was no significant findings. I will have the images pushed to [facility] PACS. I will contact the patient with the biopsies when they return. He will need a right colectomy regardless if the biopsies confirmed malignancy or not since this is the obvious source of his bleeding and is consistent with malignancy. /[id number] MATHEW/ARPIT
[2019-09-17 16:41] VITALS: BP 154/66; PULSE 62
== END 2019-09-17 11:10 | disposition home or self-care (01) ==
LOC: FB.SDS 07:31
PROVIDERS: ATTEND Surgery
DX: D12.2 Benign neoplasm of ascending colon (principal); K57.31 Diverticulosis of large intestine without perforation or abscess with bleeding; K63.3 Ulcer of intestine; I12.9 Hypertensive chronic kidney disease with stage 1 through stage 4 chronic kidney disease, or unspecified chronic kidney disease; N18.3 Chronic kidney disease, stage 3 (moderate); E78.5 Hyperlipidemia, unspecified; D63.1 Anemia in chronic kidney disease; E66.01 Morbid (severe) obesity due to excess calories; E79.0 Hyperuricemia without signs of inflammatory arthritis and tophaceous disease; Z98.890 Other specified postprocedural states; Z79.899 Other long term (current) drug therapy; Z79.890 Hormone replacement therapy; Z79.82 Long term (current) use of aspirin; Z87.891 Personal history of nicotine dependence; Z86.010 Personal history of colon polyps; Z68.41 Body mass index [BMI] 40.0-44.9, adult
CPT/HCPCS: 45380; 45385; 88305; J2001; J2704; J7120; 00811-QZ

== ENCOUNTER 2019-12-04 19:53 | Emergency (ER) | payer MEDICARE ==
[2019-12-04] MEDS ORDERED: Diltiazem 25 MG/5 ML SDV IVPUSH ONE (19:57)
[2019-12-04] MEDS ORDERED: Sodium Chloride 0.9% 10 ML Syringe FLUSH PRN (19:58)
[2019-12-04] MEDS ORDERED: Diltiazem 25 MG/5 ML SDV IVPUSH STA (20:07)
[2019-12-04] MEDS ORDERED: Metoprolol Succinate 50 MG Tab.ER PO ONE (20:16)
[2019-12-04 20:38] VITALS: BP 143/95; PULSE 206
[2019-12-04] MEDS ORDERED: Aspirin 81 MG Tab.Chew PO ONE (20:47)
[2019-12-04] MEDS ORDERED: Heparin Sodium 5,000 Units/ML Vial IVPUSH ONE (20:47)
[2019-12-04] MEDS ORDERED: Heparin Sodium/0.45% NaCl 500 ML IV SCH (20:48)
--- NOTE | 2019-12-04 21:12 | EDM.PDOC ---
ED HPI GENERAL MEDICAL PROBLEM - General Chief Complaint: Syncope Stated Complaint: PASSED OUT Time Seen by Provider: 12/04/19 19:55 Source of Information: Reports: Patient History Limitations: Reports: No Limitations - History of Present Illness INITIAL COMMENTS - FREE TEXT/NARRATIVE: Patient presented to the ED because of palpitations and near syncopal episode at 6 pm . He though it will go away but it didn't. He c/o dizziness and weakness no N/V/D or chest pain, dyspnea. No recent cough or cold symptoms or fever/chills. - Related Data Allergies Allergy/AdvReac Type Severity Reaction Status Date / Time No Known Allergies Allergy Verified 12/04/19 20:30 Home Meds: Home Meds Cholecalciferol (Vitamin D3) [Vitamin D3] 1,000 units PO DAILY 06/27/14 [History ] Furosemide 40 mg PO DAILY 06/27/14 [History] Mirtazapine [Remeron] 15 mg PO BEDTIME 06/27/14 [History] Multivitamin [Multivitamins] 1 each PO DAILY 06/27/14 [History] Pravastatin [Pravachol] 40 mg PO BEDTIME 06/27/14 [History] Ranitidine HCl [Ranitidine] 150 mg PO DAILY PRN 06/27/14 [History] amLODIPine Besylate [Amlodipine Besylate] 5 mg PO DAILY 06/27/14 [History] Levothyroxine 75 mcg PO DAILY 08/16/19 [History] Lutein 6 mg PO DAILY 08/16/19 [History] Tamsulosin HCl 0.4 mg PO BEDTIME 08/16/19 [History] allopurinoL [Zyloprim] 300 mg PO DAILY 08/16/19 [History] Iron,Carbonyl/Vit C/Vit B12/Fa [Iron 100 Plus Tablet] 1 each PO DAILY #30 tablet 08/17/19 [Rx] Carboxymethyl/Gly/Poly80/Pf [Refresh Optive Advanced Drops] 1 each OP DAILY PRN 09/16/19 [History] ClonazePAM [KlonoPIN] 0.5 mg PO DAILY PRN 09/16/19 [History] Ubidecarenone [Coq10] 60 mg PO DAILY 09/16/19 [History] Past Medical History HEENT History: Reports: Cataract Other HEENT History: NUCLEAR SCLEROSIS OF BOTH EYES Cardiovascular History: Reports: Blood Clots/VTE/DVT, High Cholesterol, Hypertension Other Cardiovascular History: SUPRAVENTRICULAR PREMATURE BEATS Respiratory History: Reports: None Gastrointestinal History: Reports: Colon Polyp, Diverticulosis, GERD Genitourinary History: Reports: Renal Disease, Other (See Below) Other Genitourinary History: pT REPORTS right kidney functioning well/ has been on dialysis before; LEFT KIDNEY REPORTED NO FUNCTION Other Musculoskeletal History: MENISCUS TEAR LEFT KNEE Neurological History: Reports: None Psychiatric History: Reports: Anxiety Endocrine/Metabolic History: Reports: Hypothyroidism, Obesity/BMI 30+ Other Endocrine/Metabolic History: HYPERURICEMIA Hematologic History: Reports: Anemia Immunologic History: Reports: None Oncologic (Cancer) History: Reports: None Dermatologic History: Reports: None - Infectious Disease History Infectious Disease History: Reports: Influenza - Past Surgical History Head Surgeries/Procedures: Reports: None HEENT Surgical History: Reports: Cataract Surgery, Naso-Sinus Surgery, Tonsillectomy Other HEENT Surgeries/Procedures: tonsilectomy, nasosinus surgery GI Surgical History: Reports: Colonoscopy Other GI Surgeries/Procedures: SIGMOIDOSCOPY Male Surgical History: Reports: Vasectomy Other Male Surgeries/Procedures: CYSTOURETHROSCOPY, RENAL SCAN Musculoskeletal Surgical History: Reports: Arthroscopic Procedure Other Musculoskeletal Surgeries/Procedures:: TENDON SHEATH INCISION Social & Family History - Tobacco Use Smoking Status *Q: Former Smoker Used Tobacco, but Quit: Yes Month/Year Tobacco Last Used: 20 years ago - Caffeine Use Caffeine Use: Reports: Coffee - Recreational Drug Use Recreational Drug Use: No ED ROS GENERAL - Review of Systems Review Of Systems: See Below Constitutional: Reports: No Symptoms HEENT: Reports: No Symptoms Respiratory: Reports: No Symptoms Cardiovascular: Reports: Lightheadedness, Palpitations Endocrine: Reports: No Symptoms GI/Abdominal: Reports: No Symptoms Musculoskeletal: Reports: No Symptoms Skin: Reports: No Symptoms ED EXAM, GENERAL - Physical Exam Exam: See Below Exam Limited By: No Limitations General Appearance: Alert, No Apparent Distress Eye Exam: Bilateral Eye: PERRL Nose: Normal Inspection, Normal Mucosa, No Blood Throat/Mouth: Normal Inspection, Normal Lips, Normal Teeth Head: Atraumatic, Normocephalic, Facial Swelling Neck: Normal Inspection, Supple, Non-Tender Respiratory/Chest: No Respiratory Distress, Lungs Clear, Normal Breath Sounds Cardiovascular: Tachycardia, Irregularly Irregular GI/Abdominal: Normal Bowel Sounds Back Exam: Normal Inspection Extremities: Normal Inspection Course - Vital Signs Text/Narrative:: Labs/EKG/CXR was discussed with patient and his and verbalized full understanding cardizem 15 mg IV metoprolol succinate 50 mg po x1 heparin bolus 5000 U heparin drip at 1000 u/hr ASA 324 po x1 Case discusse with Dr Nunn who agreed with the above plan. Last Recorded V/S: Last Vital Signs Temp 36.6 C 12/04/19 19:53 Pulse 103 H 12/04/19 20:21 Resp 30 H 12/04/19 19:53 BP 137/80 12/04/19 20:21 Pulse Ox 91 L 12/04/19 19:55 - Orders/Labs/Meds Orders: Active Orders 24 hr Category Date Time Status Heparin 25,000 Units @ 20MLS/HR Med 12/04/19 20:48 Ordered Heparin Sodium/0.45% NaCl [Heparin 25,000 Units in 1/2 NS 500 ML] 500 ml IV ASDIRECTED Sodium Chloride 0.9% [Saline Flush] Med 12/04/19 19:58 Active 10 ml FLUSH ASDIRECTED PRN Saline Lock Insert [OM.PC] Routine Oth 12/04/19 19:58 Ordered Medication Orders Heparin Sodium/Sodium Chloride (Heparin 25,000 Units In 1/2 Ns 500 Ml) 500 mls @ 20 mls/hr IV ASDIRECTED SAIDA Sodium Chloride (Saline Flush) 10 ml FLUSH ASDIRECTED PRN PRN Reason: Keep Vein Open Last Admin: 12/04/19 19:59 Dose: 10 ml Labs: Laboratory Tests 12/04/19 12/04/19 12/04/19 Range/Units 20:06 20:06 20:06 WBC 13.2 H (4.5-12.0) X10-3/uL RBC 4.77 (4.30-5.75) x10(6)uL Hgb 12.3 L (13.5-17.8) g/dL Hct 38.5 (30.0-51.3) % MCV 80.7 (80-96) fL MCH 25.8 L (27.7-33.6) pg MCHC 32.0 L (32.2-35.4) g/dL RDW 15.8 H (11.5-15.5) % Plt Count 199 (125-369) X10(3)uL MPV 7.6 (7.4-10.4) fL Neut % (Auto) 83.0 H (46-82) % Lymph % (Auto) 7.0 L (13-37) % [place] % (Auto) 7.5 (4-12) % Eos % (Auto) 2 (1.0-5.0) % Baso % (Auto) 0 (0-2) % Neut # (Auto) 11.0 H (1.6-8.3) # Lymph # (Auto) 0.9 (0.6-5.0) # [place] # (Auto) 1.0 (0.0-1.3) # Eos # (Auto) 0.3 (0.0-0.8) # Baso # (Auto) 0.0 (0.0-0.2) # PT (9.0-11.1) sec INR (1.00-1.24) APTT (24.4-33.2) SECONDS Sodium 140 (135-145) mmol/L Potassium 3.6 D (3.5-5.3) mmol/L Chloride 102 D (100-110) mmol/L Carbon Dioxide 24 (21-32) mmol/L BUN 21 H (7-18) mg/dL Creatinine 1.5 H (0.70-1.30) mg/dL Est Cr Clr Drug Dosing TNP Estimated GFR (MDRD) 46 L (>60) BUN/Creatinine Ratio 14.0 (9-20) Glucose 137 H (80-116) mg/dL Calcium 8.9 (8.6-10.2) mg/dL Magnesium 1.7 L (1.8-2.5) mg/dL Total Bilirubin 0.5 (0.1-1.3) mg/dL AST 22 D (5-25) IU/L ALT 33 D (12-36) U/L Alkaline Phosphatase 103 (56-112) IU/L Troponin I 700.6 H* (4.0-60.3) pg/mL Total Protein 7.2 (6.0-8.0) g/dL Albumin 3.3 (3.2-4.6) g/dL Globulin 3.9 g/dL Albumin/Globulin Ratio 0.9 TSH, Ultra Sensitive 6.54 H (0.36-3.74) IU/mL Urine Color (YELLOW) Urine Appearance (CLEAR) Urine pH (5.0-6.5) Ur Specific [place] (1.010-1.025) Urine Protein (NEGATIVE) mg/dL Urine Glucose (UA) (NORMAL) mg/dL Urine Ketones (NEGATIVE) mg/dL Urine Occult Blood (NEGATIVE) Urine Nitrite (NEGATIVE) Urine Bilirubin (NEGATIVE) Urine Urobilinogen (NEGATIVE) mg/dL Ur Leukocyte Esterase (NEGATIVE) Urine RBC (0-5) Urine WBC (0-5) Ur Squamous Epith Cells (NS,R,O) Urine Bacteria (NS) 12/04/19 12/04/19 Range/Units 20:06 20:45 WBC (4.5-12.0) X10-3/uL RBC (4.30-5.75) x10(6)uL Hgb (13.5-17.8) g/dL Hct (30.0-51.3) % MCV (80-96) fL MCH (27.7-33.6) pg MCHC (32.2-35.4) g/dL RDW (11.5-15.5) % Plt Count (125-369) X10(3)uL MPV (7.4-10.4) fL Neut % (Auto) (46-82) % Lymph % (Auto) (13-37) % [place] % (Auto) (4-12) % Eos % (Auto) (1.0-5.0) % Baso % (Auto) (0-2) % Neut # (Auto) (1.6-8.3) # Lymph # (Auto) (0.6-5.0) # [place] # (Auto) (0.0-1.3) # Eos # (Auto) (0.0-0.8) # Baso # (Auto) (0.0-0.2) # PT 11.3 H (9.0-11.1) sec INR 1.05 (1.00-1.24) APTT 21.0 L (24.4-33.2) SECONDS Sodium (135-145) mmol/L Potassium (3.5-5.3) mmol/L Chloride (100-110) mmol/L Carbon Dioxide (21-32) mmol/L BUN (7-18) mg/dL Creatinine (0.70-1.30) mg/dL Est Cr Clr Drug Dosing Estimated GFR (MDRD) (>60) BUN/Creatinine Ratio (9-20) Glucose (80-116) mg/dL Calcium (8.6-10.2) mg/dL Magnesium (1.8-2.5) mg/dL Total Bilirubin (0.1-1.3) mg/dL AST (5-25) IU/L ALT (12-36) U/L Alkaline Phosphatase (56-112) IU/L Troponin I (4.0-60.3) pg/mL Total Protein (6.0-8.0) g/dL Albumin (3.2-4.6) g/dL Globulin g/dL Albumin/Globulin Ratio TSH, Ultra Sensitive (0.36-3.74) IU/mL Urine Color Yellow (YELLOW) Urine Appearance Clear (CLEAR) Urine pH 6.0 (5.0-6.5) Ur Specific [place] 1.010 (1.010-1.025) Urine Protein Negative (NEGATIVE) mg/dL Urine Glucose (UA) Normal (NORMAL) mg/dL Urine Ketones 15 H (NEGATIVE) mg/dL Urine Occult Blood Negative (NEGATIVE) Urine Nitrite Negative (NEGATIVE) Urine Bilirubin Negative (NEGATIVE) Urine Urobilinogen Normal (NEGATIVE) mg/dL Ur Leukocyte Esterase Negative (NEGATIVE) Urine RBC Not seen (0-5) Urine WBC Not seen (0-5) Ur Squamous Epith Cells Rare (NS,R,O) Urine Bacteria Rare H (NS) Meds: Medications Generic Name Dose Route Start Last Admin Trade Name Freq PRN Reason Stop Dose Admin Heparin Sodium/Sodium Chloride 500 mls @ 20 mls/hr 12/04/19 20:48 Heparin 25,000 Units In 1/2 Ns 500 Ml IV ASDIRECTED SAIDA Sodium Chloride 10 ml 12/04/19 19:58 12/04/19 19:59 Saline Flush FLUSH 10 ml ASDIRECTED PRN Administration Keep Vein Open Discontinued Medications Generic Name Dose Route Start Last Admin Trade Name Freq PRN Reason Stop Dose Admin Aspirin 324 mg 12/04/19 20:47 12/04/19 20:56 Aspirin PO 12/04/19 20:48 324 mg ONETIME ONE Administration Diltiazem HCl 15 mg 12/04/19 19:57 12/04/19 19:59 Diltiazem IVPUSH 12/04/19 19:58 15 mg ONETIME ONE Administration Diltiazem HCl 10 mg 12/04/19 20:07 Diltiazem IVPUSH 12/04/19 20:08 NOW STA Heparin Sodium (Porcine) 5,000 units 12/04/19 20:47 12/04/19 20:57 Heparin Sodium IVPUSH 12/04/19 20:48 5,000 units ONETIME ONE Administration Metoprolol Succinate 50 mg 12/04/19 20:16 12/04/19 20:21 Toprol Xl PO 12/04/19 20:17 50 mg ONETIME ONE Administration Departure - Departure Time of Disposition: 21:15 Disposition: DC/Tfer to Acute Hospital 02 Condition: Good Clinical Impression: New onset a-fib, Acute [place] - Discharge Information Referrals: Abundio Aguilar MD [Primary Care Provider] - Sepsis Event Note (ED) - Evaluation Sepsis Screening Result: No Definite Risk - Focused Exam Vital Signs: Vital Signs Temp Pulse Pulse Resp BP BP Pulse Ox 12/04/19 20:21 103 H 137/80 12/04/19 19:55 12/04/19 19:53 36.6 C 206 H 30 H 143/95 H 91 L Pulse Ox 12/04/19 20:21 12/04/19 19:55 91 L 12/04/19 19:53 - My Orders Last 24 Hours: My Active Orders 12/04/19 19:58 Sodium Chloride 0.9% [Saline Flush] 10 ml FLUSH ASDIRECTED PRN Saline Lock Insert [OM.PC] Routine 12/04/19 20:48 Heparin 25,000 Units @ 20MLS/HR Heparin Sodium/0.45% NaCl [Heparin 25,000 Units in 1/2 NS 500 ML] 500 ml IV ASDIRECTED - Assessment/Plan Last 24 Hours: My Active Orders 12/04/19 19:58 Sodium Chloride 0.9% [Saline Flush] 10 ml FLUSH ASDIRECTED PRN Saline Lock Insert [OM.PC] Routine 12/04/19 20:48 Heparin 25,000 Units @ 20MLS/HR Heparin Sodium/0.45% NaCl [Heparin 25,000 Units in 1/2 NS 500 ML] 500 ml IV ASDIRECTED
--- OUTSIDE RECORDS SUMMARY | 2019-12-11 08:16 | XMSREPORT ---
:1950 Author Organization [facility] Address [address] [place] [address] [address] [place] [address] Care Team Providers Name Role Phone Provider, Attributed RESOURCE Attributed Provider Unavailab gaby Aguilar MD Primary Care Provider Reason for Referral [facility] (Routine) Status Reason Specialty Diagnoses / Referred By Referred To Procedures Contact Contact New Request SLEEP MEDICINE Diagnoses NSTEMI (non-ST elevated myocardial infarction) (HCC) Dariel Liang Sleep MD [facility] [place] [address] [place] [id number] Phone: [place], [place] [address] Phone: Fax: Scheduling Instructions This is an electronic referral. [facility] (Routine) Status Reason Specialty Diagnoses / Referred By Referred To Contact Procedures Contact New Request CARDIOLOGY Diagnoses NSTEMI (non-ST elevated myocardial infarction) (HCC) Dariel Liang Cardiology Sc MD Isaiah [address] [place] [address] [place], [place] [phone] Phone: Phone: Scheduling Instructions This is an electronic referral. [facility] (Routine) Status Reason Specialty Diagnoses / Referred By Referred To Contact Procedures Contact New Request CARDIOLOGY Diagnoses NSTEMI (non-ST elevated myocardial infarction) (HCC) Coronary artery disease involving northern che[place] coronary artery of [place] heart without angina pectoris Darryl Liang Cardiology Pablo Abrams MD [address] [place] [phone] Phone: Phone: Scheduling Instructions This is an electronic referral. [facility] (Routine) Status Reason Specialty Diagnoses / Referred By Referred To Contact Procedures Contact New Request CARDIOLOGY Diagnoses NSTEMI (non-ST elevated myocardial infarction) (HCC) Coronary artery disease involving northern che[place] coronary artery of [place] heart without angina pectoris Darryl Liang Cardiology Pablo Abrams MD [address] [place] [phone] Phone: Phone: Scheduling Instructions This is an electronic referral. Reason for Visit Auth/Cert Status Reason Specialty Diagnoses / Procedures Referred By C ontact Referred To Contact Encounter Details Date Type Department Care Team Description 12/04/2019 - [facility] Provider, Generic Hosp Pr ocedure NSTEMI (non-ST 12/08/2019 Encounter CENTER 6CD Isaiah Gill MD [address] [place] [address] [phone] elevated [address] Susy Nunn MD [address] [place] [address] [phone] [place] [address] infarction) (HCC) [phone] Allergies No Known Allergiesdocumented as of this encounter (statuses as of 12/08/2019) Medications Medication Sig Dispensed Refills Start End Date Status Date amLODIPine (NORVASC) Take 10 mg by 0 Active 10 mg tablet mouth 1 time per day. furosemide (LASIX) 40 Take 40 mg by 0 Active mg tablet mouth 1 time per day. levothyroxine Take 50 mcg 0 Acti ve (SYNTHROID) 50 mcg by mouth 1 tablet time per day. mirtazapine (REMERON) Take 15 mg by 0 Active 15 mg tablet mouth every night at bedtime. folic acid 1 mg Take 1 tablet 90 tablet 3 Active tabletIndications: (1 mg) by 0 Folic acid deficiency mouth 1 time per day prochlorperazine Take 1 tablet 50 tablet 3 Active (COMPAZINE) 10 mg (10 mg) by 0 tabletIndications: mouth 4 times Malignant neoplasm of a day as ascending colon (HCC) needed for nausea or vomiting dexamethasone Take 2 4 tablet 11 Active (DECADRON) 4 mg tablets by 0 tabletIndications: mouth 1 time Malignant neoplasm of per day with ascending colon (HCC) food on days 2 and 3 after chemotherapy. B Complex Vitamins Take 1 0 A ctive (VITAMIN B COMPLEX) capsule by 0 capsule mouth 1 time per day allopurinol Take 300 mg 0 Active (ZYLOPRIM) 300 mg by mouth 1 9 tablet time per day Lutein 6 MG TABS Take 1 tablet 0 Active by mouth 1 5 time per day tamsulosin (FLOMAX) TAKE ONE 0 Active 0.4 mg capsule CAPSULE BY 0 MOUTH ONCE DAILY. CAPSULES SHOULD BE SWALLOWED WHOLE; DO NOT CRUSH, CHEW, OR OPEN aspirin 81 mg Take 1 tablet 90 tablet 3 12/03/19 Ac tive chewable (81 mg) by 0 21 tabletIndications: mouth 1 time NSTEMI (non-ST per day elevated myocardial infarction) ([facility]), Coronary artery disease involving northern che[place] coronary artery of northern [place] heart without angina pectoris atorvaSTATin Take 1 tablet 30 tablet 0 01/07/20 Act laina (LIPITOR) 40 mg (40 mg) by 0 20 tabletIndications: mouth 1 time NSTEMI (non-ST per day elevated myocardial infarction) ([facility]) clopidogrel (PLAVIX) Take 1 tablet 90 tablet 3 Active 75 mg (75 mg) by 0 tabletIndications: mouth 1 time NSTEMI (non-ST per day elevated myocardial infarction) ([facility]), Coronary artery disease involving northern [place] coronary artery of northern [place] heart without angina pectoris metoprolol succinate Take 1 tablet 30 tablet 0 01/06 Active (TOPROL XL) 50 mg SR (50 mg) by 0 20 tablet (24 mouth 1 time hr)Indications: per day NSTEMI (non-ST elevated myocardial infarction) (HCC), Coronary artery disease involving northern che[place] coronary artery of northern [place] heart without angina pectoris ferrous sulfate (65 Take 1 tablet 30 tablet 0 Active MG FE PER 325 MG (325 mg) by 0 TABLET) 325 mg mouth Every tabletIndications: other day Iron deficiency anemia due to chronic blood loss nitroglycerin Dissolve 1 15 tablet 0 12/13/19 Activ e (NITROSTAT) 0.4 mg tablet (0.4 0 21 sublingual mg) under the tabletIndications: tongue Every NSTEMI (non-ST 5 minutes as elevated myocardial needed for infarction) (HCC) chest pain May repeat every 5 minutes for a total of 3 doses. vitamin D3, Take 400 0 12/05/19 Disconti nued cholecalciferol, 400 Units by 20 (data entry assistant unit tablet mouth 1 time error ) per day. clonazePAM (KLONOPIN) Take 0.5 mg 0 Discontinued 0.5 mg tablet by mouth 1 20 (data entry assistant time a day as error) needed. pravastatin Take 40 mg by 0 12/08/19 Disc ontinued (PRAVACHOL) 40 mg mouth 1 time 20 (Stop Taking at tablet per day Discharge) Ferrous Sulfate Take 1 tablet 30 tablet 0 12/08/19 Discontinued (IRON) 325 (65 Fe) MG (325 mg) by 0 20 (Stop Taking at tabletIndications: mouth 1 time Discharge) Chronic kidney per day disease, stage III (moderate) (HCC), Other iron deficiency anemia vitamin C, ascorbic Take 500 mg 0 12/05/19 Discontinued acid, 500 MG tablet by mouth 20 (data entry assistant error) documented as of this encounter (statuses as of 12/08/2019) Active Problems Problem Noted Date NSTEMI (non-ST elevated myocardial infarction) 020 Atrial fibrillation with RVR 12/05/2019 Leukocytosis 12/05/2019 Steroid-induced hyperglycemia 12/05/2019 Malignant neoplasm of ascending colon 11/21/2019 Cancer Staging: Clinical stage from 11/20: Stage IIIB (cT4a, cN1, cM0) - Signed by Gabe Pereira MD on 11/21/2019 S/P left knee arthroscopy 12/18/2015 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 Other hyperlipidemia 11/29/2010 Chronic kidney disease, stage III (moderate) 1 Generalized anxiety disorder 08/19/2003 documented as of this encounter (statuses as of 12/08/2019) Resolved Problems Problem Noted Date Resolved Date Acute deep vein thrombosis (DVT) of tibial vein of left 11/2511/21/2019 lower extremity Acute superficial venous thrombosis of left lower extremity 12/18/2015 11/21/2019 Acute renal failure 07/22/2010 11/21/2019 documented as of this encounter (statuses as of 12/08/2019) Social History Tobacco Use Types Packs/Day Years Used Date Former Smoker Cigarettes Quit: 1999 Smokeless Tobacco: Never Used Alcohol Use Drinks/Week oz/Week Comments Yes occasional- bowl ing nights on Wednesdays in Winter Alcohol Habits Answer Date Recorded How often do you have a drink containing alcohol? 2-4 times a month 12/04/2019 How many drinks containing alcohol do you have on a Not aske d typical day when you are drinking? How often do you have six or more drinks on one Not asked occasion? Sex Assigned at Date Recorded Not on file Job Start Date Occupation Industry Not on file Not on file Not on file Travel History Travel Start Travel End No recent travel history available. documented as of this encounter Last Filed Vital Signs Vital Sign Reading Time Taken Comments Blood Pressure 139/80 12/08/2019 12:21 PM CDT Pulse 77 12/08/2019 12:21 PM CDT Temperature 36.7 C (98.1 F) 12/08/2019 12:21 PM CDT Respiratory Rate 16 12/08/2019 12:21 PM CDT Oxygen Saturation 97% 12/08/2019 12:21 PM CDT Inhaled Oxygen Concentration - - Weight 132 kg (291 lb) 12/06/2019 6:05 AM CDT Height 185.4 cm (6' 1") 12/04/2019 11:05 PM CDT Body Mass Index 38.39 12/04/2019 11:05 PM CDT documented in this encounter Functional Status Functional Status Response Date of Assessment Is the person deaf or does he/she have serious difficulty No 12/04/2019 hearing? Is this person blind or does he/she have difficulty No 12/04/2019 seeing even when wearing glasses? Do you have difficulty with walking, balance, climbing No 12/05/2019 stairs, or had a fall in the last 3 months? Does the patient have difficulty dressing or bathing? No 12/04/2019 Because of a physical, mental, or emotional condition; No 12/04/2019 does this person have difficulty doing errands alone such as visiting a doctor's office or shopping? Cognitive Status Response Date of Assessment Because of a physical, mental, or emotional condition; No 12/04/2019 does this person have serious difficulty concentrating, remembering, or making decisions? documented as of this encounter Discharge Summaries Lorenzo Romero MD - 12/08/2019 11:27 AM CDT Hospital Discharge Summary Attending Physician: Isaiha Liang* Attending Physician Specialty: Adult Hospitalist, Internal Medicine Admit Date: 12/04/2019 Discharge Date: 12/08/19 Primary Care Physician: Abundio Aguilar MD Discharge Diagnoses Active Problems: NSTEMI (non-ST elevated myocardial infarction) (HCC) Atrial fibrillation with RVR (HCC) Leukocytosis Steroid-induced hyperglycemia Resolved Problems: * No resolved hospital problems. * Hospital Course 69yr year old malewho is being seen in the hospital for SOB, lightheadedness and dizziness subsequently diagnosed with new onset A. Fib and NSTEMI.Was found to have NSTEMI type I .CHARMAINE Score 2.A. fib with RVR seems to resolved and he remained in regular rhythm the rest of hospitalization.He underwent angiogram with stenting of LAD x1 o 12/05. Afterward Brilinta was started and he was having some SOB, so this was switched to plavix. SOB improved slightly, but was still present. Cardiology continued following and wanted f/u in 4 weeks as well as medical management. He did develop a mild bumpin Cr to 1.49 on date of discharge, so held off on starting an MIYA. For PCP please evaluate his Cr and please start MIYA if appropriate. As his a-fib was only present for a short time and he does not have hx of a-fib, did not start anticoagulation. He had continuous oximetry overnight in the hospital which showed 18.5 min less that 88% with 52.5 events per hour, so sleep medicine referral was made. Hedid receive 1 does of IV lasix 40 then restarted his home 40 oral. LabTests Pending at Discharge Unresulted Lab Orders (From admission, onward) Start Ordered 12/08/19431 COMPLETE BLOOD COUNT WITHOUT DIFFERENTIAL Early AM draw, Routine Start: 12/08/19431 End: Until Specified 12/08/193 12/08/19431 MAGNESIUM Early AM draw, Routine Start: 12/08/19431 End: Until Specified 12/08/193 12/08/19431 RENAL FUNCTION PANEL Early AM draw, Routine Start: 12/08/19431 End: Until Specified 12/08/19132 Follow-Up Scheduled Contact information for follow-up [facility], [facility], [facility] [address] [place] [address] [place] [address] Next Steps: Follow up Instructions: Cardiac Rehab will contact you. Abundio Aguilar MD Specialty: Internal Medicine Relationship: PCP - [address] [address] Next Steps: Follow up Instructions: You will be contacte with your 1 week follow up appointment date/time with Abundio Aguilar MD [facility] Specialty: CARDIOLOGY [address] [place] [phone] Next Steps: Follow up Instructions: You will be contacted with your 4 week follow up appointment date/time with Cardiology Preliminary Discharge Medications This list of medications is preliminary and tentative. Please see the After Visit Summary for the final and accurate medication list. Discharge Medication List START taking these medications START: aspirin 81 mg chewable tablet Dose: 81 mg Take 1 tablet (81 mg) by mouth 1 time per day START: atorvaSTATin 40 mg tablet Commonly known as: LIPITOR Dose: 40 mg Take 1 tablet (40 mg) by mouth 1 time per day START: clopidogrel 75 mg tablet Commonly known as: PLAVIX Dose: 75 mg Take 1 tablet (75 mg) by mouth 1 time per day START: metoprolol succinate 50 mg SR tablet (24 hr) Commonly known as: TOPROL XL Dose: 50 mg Take 1 tablet (50 mg) by mouth 1 time per day START: nitroglycerin 0.4 mg sublingual tablet Commonly known as: NITROSTAT Dose: 0.4 mg Dissolve 1 tablet (0.4 mg) under the tongue Every 5 minutes as needed for chest pain May repeat every 5 minutes for a total of 3 doses. CONTINUE taking these medications which have CHANGED CONTINUE: ferrous sulfate 325 mg tablet Commonly known as: 65 mg FE per 325 mg tablet Dose: 325 mg Take 1 tablet (325 mg) by mouth Every other day What changed: medication strength when to take this CONTINUE taking these medications which have NOT CHANGED CONTINUE: allopurinol 300 mg tablet Commonly known as: ZYLOPRIM Dose: 300 mg Take 300 mg by mouth 1 time per day CONTINUE: amLODIPine 10 mg tablet Commonly known as: NORVASC Dose: 10 mg Take 10 mg by mouth 1 time per day. CONTINUE: dexamethasone 4 mg tablet Commonly known as: DECADRON Take 2 tablets by mouth 1 time per day with food on days 2 and 3 after chemotherapy. CONTINUE: folic acid 1 mg tablet Dose: 1 mg Take 1 tablet (1 mg) by mouth 1 time per day CONTINUE: furosemide 40 mg tablet Commonly known as: LASIX Dose: 40 mg Take 40 mg by mouth 1 time per day. CONTINUE: levothyroxine 50 mcg tablet Dose: 50 mcg Take 50 mcg by mouth 1 time per day. CONTINUE: Lutein 6 MG Tabs Dose: 1 tablet Take 1 tablet by mouth 1 time per day CONTINUE: mirtazapine 15 mg tablet Commonly known as: REMERON Dose: 15 mg Take 15 mg by mouth every night at bedtime. CONTINUE: prochlorperazine 10 mg tablet Commonly known as: COMPAZINE Dose: 10 mg Take 1 tablet (10 mg) by mouth 4 times a day as needed for nausea or vomiting CONTINUE: tamsulosin 0.4 mg capsule Commonly known as: FLOMAX TAKE ONE CAPSULE BY MOUTH ONCE DAILY. CAPSULES SHOULD BE SWALLOWED WHOLE; DO NOT CRUSH, CHEW, OR OPEN CONTINUE: vitamin B complex capsule Dose: 1 capsule Take 1 capsule by mouth 1 time per day You might also be taking other medications not listed above. If you have questions about any of your other medications, talk to the person who prescribed them or your Primary Care Provider. STOP taking these medications STOP: pravastatin 40 mg tablet Commonly known as: PRAVACHOL Where to Get Your Medications These medications were sent to [facility] [address] [place] [address] [place] [address] aspirin 81 mg chewable tablet atorvaSTATin 40 mg tablet clopidogrel 75 mg tablet ferrous sulfate 325 mg tablet metoprolol succinate 50 mg SR tablet (24 hr) nitroglycerin 0.4 mg sublingual tablet Temp: 98.4 F (36.9 C) BP: 157/91 Weight: 132 kg (291 lb) SpO2: 97 % Resp: 16 Pulse: 76 Current BMI (>50 = increased risk): (!) 38.26 O2 Device: Room Air O2 Flow Rate (L/min): 0 l/min Physical Exam Constitutional: He isoriented to person, place, and timeand well-developed, well-nourished, and in no distress.No distress. HENT: Head:Normocephalicand atraumatic. Eyes:Pupils are equal, round, and reactive to light.No scleral icterus. Neck:No JVDpresent. Cardiovascular:Regular rhythm. Regular rate. Exam reveals no gallopand no friction rub. No murmurheard. Pulmonary/Chest:. Noaccessory muscle usage. Norespiratory distress. He hasno wheezes. He hasno rales.Increased effort. Mild crackles bilaterally Port in place in right upper chest with no evidence of gross bleeding or infection Abdominal:Soft. He exhibitsno distension. There isno tenderness. There isno guarding. Multiple surgical sites, well healing with no evidence of bleeding or infection Musculoskeletal: No edema. Neurological: He isalertand oriented to person, place, and time. No facial motor asymmetry, tongue and uvula midline, speech clear Skin: Skin iswarmand dry.No rashnoted. He is not diaphoretic. Psychiatric:Affectand judgmentnormal. Nursing noteand vitalsreviewed. 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 Associated attestation - Isaiah Liang MD - 12/08/2019 12:19 PM CDT I saw the patient with the resident. I was present during the critical or costa portions of the service furnished by the resident. I verified in the medical record, all residents documentation/findings, including history, physical exam, and medical decision making and I agree with the resident's documentation. Note the following additions/corrections: home O2 evaluation performed by RT prior to DC, pt doesn'tqualifies for O2. Cardiac rehab, sleep study referral. F/up with PCP and oncology. Consider ACEi or ARB for HFrEF as OP if kidney function allows. Pt has CKD st 3. Cardiology f/up as OP. Plan of care discussed with the pt and his . Questions answered. Medical Decision Making A total of 35 minutes were spent on discharge coordination.documented in this encounter Discharge Instructions AttachmentsThe following attachments cannot be sent through Care Everywhere. Cardiac Catheterization, Discharge Instructions for (Latvian)documented in this encounter Medications at Time of Discharge Medication Sig Dispensed Refills Start Date End Date aspirin 81 mg chewable Take 1 tablet (81 90 tablet 3 201912/02/2020 tabletIndications: NSTEMI mg) by mouth 1 time (non-ST elevated per day myocardial infarction) ([facility]), Coronary artery disease involving northern che[place] coronary artery of northern [place] heart without angina pectoris atorvaSTATin (LIPITOR) 40 Take 1 tablet (40 30 tablet 0 01/07/2020 mg tabletIndications: mg) by mouth 1 time NSTEMI (non-ST elevated per day myocardial infarction) ([facility]) clopidogrel (PLAVIX) 75 mg Take 1 tablet (75 90 tablet 3 tabletIndications: NSTEMI mg) by mouth 1 time (non-ST elevated per day myocardial infarction) ([facility]), Coronary artery disease involving northern [place] coronary artery of northern [place] heart without angina pectoris metoprolol succinate Take 1 tablet (50 30 tablet 0 12/08/19 20 01/07/2020 (TOPROL XL) 50 mg SR mg) by mouth 1 time tablet (24 hr)Indications: per day NSTEMI (non-ST elevated myocardial infarction) ([facility]), Coronary artery disease involving northern [place] coronary artery of northern [place] heart without angina pectoris ferrous sulfate (65 MG FE Take 1 tablet (325 30 tablet 0 PER 325 MG TABLET) 325 mg mg) by mouth Every tabletIndications: Iron other day deficiency anemia due to chronic blood loss B Complex Vitamins Take 1 capsule by 0 11/14/2019 (VITAMIN B COMPLEX) mouth 1 time per capsule day allopurinol (ZYLOPRIM) 300 Take 300 mg by 0 02/01 mg tablet mouth 1 time per day Lutein 6 MG TABS Take 1 tablet by 0 11/04/2014 mouth 1 time per day tamsulosin (FLOMAX) 0.4 mg TAKE ONE CAPSULE BY 0 10/24/2019 capsule MOUTH ONCE DAILY. CAPSULES SHOULD BE SWALLOWED WHOLE; DO NOT CRUSH, CHEW, OR OPEN folic acid 1 mg Take 1 tablet (1 90 tablet 3 11/21/2019 tabletIndications: Folic mg) by mouth 1 time acid deficiency per day prochlorperazine Take 1 tablet (10 50 tablet 3 11/21/2019 (COMPAZINE) 10 mg mg) by mouth 4 tabletIndications: times a day as Malignant neoplasm of needed for nausea ascending colon (HCC) or vomiting dexamethasone (DECADRON) 4 Take 2 tablets by 4 tablet 11 mg tabletIndications: mouth 1 time per Malignant neoplasm of day with food on ascending colon (HCC) days 2 and 3 after chemotherapy. amLODIPine (NORVASC) 10 mg Take 10 mg by mouth 0 tablet 1 time per day. furosemide (LASIX) 40 mg Take 40 mg by mouth 0 tablet 1 time per day. levothyroxine (SYNTHROID) Take 50 mcg by 0 50 mcg tablet mouth 1 time per day. mirtazapine (REMERON) 15 Take 15 mg by mouth 0 mg tablet every night at bedtime. nitroglycerin (NITROSTAT) Dissolve 1 tablet 15 tablet 0 12/12/2020 0.4 mg sublingual (0.4 mg) under the tabletIndications: NSTEMI tongue Every 5 (non-ST elevated minutes as needed myocardial infarction) for chest pain May (HCC) repeat every 5 minutes for a total of 3 doses. documented as of this encounter Progress Notes Lorenzo Romero MD - 12/07/2019 11:09 AM CDT Internal Medicine Inpatient Progress Note Name: Allie Mcqueen ROOM/BED: [facility]/ PCP: Abundio Aguilar MD Admission date: 12/04/2019 LOS: 2 Assessment/ Plan Problem List: Active Problems: NSTEMI (non-ST elevated myocardial infarction) (HCC) Atrial fibrillation with RVR (HCC) Leukocytosis Steroid-induced hyperglycemia Assessment: 69yr year old male who is being seen in the hospital for SOB, lightheadedness and dizziness subsequently diagnosed with new onset A. Fib and NSTEMI. NSTEMI type I . CHARMAINE Score 2. A. fib with RVR seems to have resolved. Heart rate now in the 100'swith regular rhythm. He does not have any noted history of CHF, however reports chronic swelling in his lower extremities for which he is on oral lasix. Trace edema noted on physical exam. Lungs clear to auscultation bilaterally. He does also report a previous history of murmer, which I do not appreciate on auscultation. JVD unable to be assessed due to body habitus. He was started on heparin at OSH. New onset A. fib and elevated troponin concerning for type I NSTEMI. - first troponin 1.48, trended down - underwent angiogram with stenting of LAD x1 12/05. Afterward Brilinta was started and he began having SOB. Plan: -Cardiology following - CXR -continue Brilinta 90 BID for now, may need to switch to Plavix if SOB continues -Continuous telemetry -Continue Aspirin 81 mg daily, Metoprolol Succinate 50 mg daily, SL Nitro PRN - restart home Lasix 40 qd - continue Atorvastatin 40 mg daily -Sleep study positive will need sleep med referral outpt Chronic Medical Conditions: HTN: Continue amlodipine HLD: Management as above CKD III General Anxiety Disorder: holding prn Klonopin DVT Prophylaxis:On Heparin ggt Diet: NPO , except meds Disposition: Admit to Hospital Code Status:Full Code HPI / History / ROS Hospital Course No notes on file Interval History Reports SOB starting last night. States he was able to sleep and it was better in the morning, but still experiencing some. Has been sating well. Occasional cough. Denies any fevers/chills, chest pain/pressure, nausea/vomiting/diarrhea Review of Systems Complete 9 point review of systems performed and negative except as listed in the interval history Physical / Results Physical Exam/Vitals Vital signs: Blood pressure 153/92, pulse 87, temperature 97.7 F (36.5 C), resp. rate 18, .4 cm (73"), weight 132 kg (291 lb), SpO2 97 %. Physical Exam Constitutional: He is oriented to person, place, and time and well-developed, well-nourished, and inno distress. No distress. HENT: Head: Normocephalic and atraumatic. Eyes: Pupils are equal, round, and reactive to light. No scleral icterus. Neck: No JVD present. Cardiovascular: Regular rhythm. Regular rate. Exam reveals no gallop and no friction rub. No murmur heard. Pulmonary/Chest:. No accessory muscle usage. No respiratory distress. He has no wheezes. He has no rales. Increased effort. Mild crackles bilaterally Port in place in right upper chest with no evidence of gross bleeding or infection Abdominal: Soft. He exhibits no distension. There is no tenderness. There is no guarding. Multiple surgical sites, well healing with no evidence of bleeding or infection Musculoskeletal: He exhibits edema (Trace edema bilaterally ). Neurological: He is alert and oriented to person, place, and time. No facial motor asymmetry, tongue and uvula midline, speech clear Skin: Skin is warm and dry. No rash noted. He is not diaphoretic. Psychiatric: Affect and judgment normal. Nursing note and vitals reviewed. Patient Lines/Drains/Airways Status Active Lines Name: Placement date: Placement time: Site: Days: IVAD 11/26/19 Internal jugular Right 11/26/19 1055 Internal jugular 11 Incision 10/16/12 Right Knee Puncture site 3 10/16/12 0802 Knee 2608 Incision 11/12/15 Left Knee Lap sites 2 11/12/15 0729 Knee 1486 Medications Current Facility-Administered Medications Medication hydrALAZINE (APRESOLINE) injection solution 10 mg nitroglycerin (NITROSTAT) sublingual tablet 0.4 mg aspirin chewable tablet 81 mg ticagrelor (BRILINTA) tablet 90 mg levothyroxine tablet 50 mcg atorvaSTATin (LIPITOR) tablet 40 mg tamsulosin (FLOMAX) capsule 0.4 mg amLODIPine (NORVASC) tablet 10 mg acetaminophen (TYLENOL) tablet 650 mg melatonin tablet 3 mg senna-docusate sodium (SENOKOT-S;PERICOLACE) tablet 2 tablet And bisacodyl (DULCOLAX) suppository 10 mg And docusate sodium (THEREVAC-SB MINI;ENEMEEZ MINI) 283 MG enema 1 enema ondansetron (ZOFRAN ODT) dispersible tablet 4 mg And ondansetron (ZOFRAN) injection solution 4 mg acetaminophen (TYLENOL) tablet 650 mg Or acetaminophen (TYLENOL) suppository 650 mg metoprolol succinate (TOPROL XL) SR tablet (24 hr) 50 mg folic acid tablet 1 mg ferrous sulfate (65 mg FE per 325 mg tablet) tablet 325 mg allopurinol (ZYLOPRIM) tablet 300 mg mirtazapine (REMERON) tablet 15 mg sodium chloride 0.9% flush (adult) 10 mL metoclopramide (REGLAN) inj soln 5 mg Labs/Imaging All labs and imaging were personally reviewed and pertinent findings are discussed in the history and assessment. Associated attestation - Isaiah Liang MD - 12/07/2019 12:52 PM CDT I saw the patient with the resident. I was present during the critical or costa portions of the service furnished by the resident. I verified in the medical record, all residents documentation/findings, including history, physical exam, and medical decision making and I agree with the resident's documentation. Note the following additions/corrections: still with SOB, get CXR, cw lasix, if c/w SOB will switch brillinta to plavix. Plan discussed with the pt and his . A total of 35 minutes was spent with the patient or on the floor today, greater than 50% of which was spent in coordination of care, chart review, medical decision making, and documentation Lorenzo Romero MD - 12/06/2019 1:13 PM CDT Internal Medicine Inpatient Progress Note Name: Allie Mcqueen ROOM/BED: [facility]/ PCP: Abundio Aguilar MD Admission date: 12/04/2019 LOS: 1 Assessment/ Plan Problem List: Active Problems: NSTEMI (non-ST elevated myocardial infarction) (HCC) Atrial fibrillation with RVR (HCC) Leukocytosis Steroid-induced hyperglycemia Assessment: 69yr year old male who is being seen in the hospital for SOB, lightheadedness and dizziness subsequently diagnosed with new onset A. Fib and NSTEMI. NSTEMI type I vs type II. CHARMAINE Score 2. A. fib with RVR seems to have resolved. Heart rate now inthe 110's with regular rhythm after receiving Cardizem bolus at OSH. Will obtain EKG to confirm he is now in normal sinus. He does not have any noted history of CHF, however reports chronic swelling in his lower extremities for which he is on oral lasix. Trace edema noted on physical exam. Lungs clear to auscultation bilaterally. He does also report a previous history of murmer, which I do not appreciate on auscultation. JVD unable to be assessed due to body habitus. No echo on file. Will hold lasix due to possible need for cath. He was started on heparin at OSH. New onset A. fib and elevated troponin concerning for type I NSTEMI. - first troponin 1.48, trended down Plan: -Cardiology following -angiogram today -Continuous telemetry -Continue Aspirin 81 mg daily, Metoprolol Succinate 50 mg daily, SL Nitro PRN -Will increase statin to high intensity statin, start Atorvastatin 40 mg daily -Sleep study positive will need sleep med referral outpt Chronic Medical Conditions: HTN: Continue amlodipine HLD: Management as above CKD III General Anxiety Disorder: holding prn Klonopin DVT Prophylaxis:On Heparin ggt Diet: NPO , except meds Disposition: Admit to Hospital Code Status:Full Code HPI / History / ROS Hospital Course No notes on file Interval History Currently comfortable with no pain. Denies any fevers/chills, shortness of breath, chest pain/pressure, nausea/vomiting/diarrhea . No new concerns or complaints. Review of Systems Complete 9 point review of systems performed and negative except as listed in the interval history Physical / Results Physical Exam/Vitals Vital signs: Blood pressure 130/84, pulse 78, temperature 97.9 F (36.6 C), resp. rate 16, yowjpo203.4 cm (73"), weight 132 kg (291 lb), SpO2 93 %. Physical Exam Constitutional: He is oriented to person, place, and time and well-developed, well-nourished, and inno distress. No distress. HENT: Head: Normocephalic and atraumatic. Eyes: Pupils are equal, round, and reactive to light. No scleral icterus. Neck: No JVD present. Cardiovascular: Regular rhythm. Regular rate. Exam reveals no gallop and no friction rub. No murmur heard. Pulmonary/Chest: Effort normal. No accessory muscle usage. No respiratory distress. He has no wheezes. He has no rales. Port in place in right upper chest with no evidence of gross bleeding or infection Abdominal: Soft. He exhibits no distension. There is no tenderness. There is no guarding. Multiple surgical sites, well healing with no evidence of bleeding or infection Musculoskeletal: He exhibits edema (Trace edema bilaterally ). Neurological: He is alert and oriented to person, place, and time. No facial motor asymmetry, tongue and uvula midline, speech clear Skin: Skin is warm and dry. No rash noted. He is not diaphoretic. Psychiatric: Affect and judgment normal. Nursing note and vitals reviewed. Patient Lines/Drains/Airways Status Active Lines Name: Placement date: Placement time: Site: Days: IVAD 11/26/19 Internal jugular Right 11/26/19 1055 Internal jugular 10 Incision 10/16/12 Right Knee Puncture site 3 10/16/12 0802 Knee 2607 Incision 11/12/15 Left Knee Lap sites 2 11/12/15 0729 Knee 1485 Medications Current Facility-Administered Medications Medication verapamil-hEParin in normal saline (radial cocktail) sodium chloride 0.9% IV solution acetaminophen (TYLENOL) tablet 650 mg hydrALAZINE (APRESOLINE) injection solution 10 mg nitroglycerin (NITROSTAT) sublingual tablet 0.4 mg [START ON 12/07/2019] aspirin chewable tablet 81 mg ticagrelor (BRILINTA) tablet 90 mg levothyroxine tablet 50 mcg atorvaSTATin (LIPITOR) tablet 40 mg tamsulosin (FLOMAX) capsule 0.4 mg amLODIPine (NORVASC) tablet 10 mg aspirin enteric coated tablet 81 mg acetaminophen (TYLENOL) tablet 650 mg melatonin tablet 3 mg senna-docusate sodium (SENOKOT-S;PERICOLACE) tablet 2 tablet And bisacodyl (DULCOLAX) suppository 10 mg And docusate sodium (THEREVAC-SB MINI;ENEMEEZ MINI) 283 MG enema 1 enema ondansetron (ZOFRAN ODT) dispersible tablet 4 mg And ondansetron (ZOFRAN) injection solution 4 mg acetaminophen (TYLENOL) tablet 650 mg Or acetaminophen (TYLENOL) suppository 650 mg metoprolol succinate (TOPROL XL) SR tablet (24 hr) 50 mg hEParin (50 units/mL) in D5W premixed IV solution (STANDARD-weight based) heparin (porcine) (5000 units/1 mL) IV dose 4,600 Units Or heparin (porcine) (5000 units/1 mL) IV dose 7,500 Units folic acid tablet 1 mg ferrous sulfate (65 mg FE per 325 mg tablet) tablet 325 mg allopurinol (ZYLOPRIM) tablet 300 mg mirtazapine (REMERON) tablet 15 mg sodium chloride 0.9% flush (adult) 10 mL metoclopramide (REGLAN) inj soln 5 mg Labs/Imaging All labs and imaging were personally reviewed and pertinent findings are discussed in the history and assessment. Associated attestation - Isiaah Liang MD - 12/07/2019 12:28 PM CDT I discussed the patient with the resident and personally interviewed and examined the patient. I verified in the medical record all resident documentation/findings, including history, physical exam, and medical decision making, and I agree with the resident's documentation. Note the following additions/corrections: angiogram results and PTCA with EVANGELINA to LAD discussed with the pt and his daughter. Pt reports SOB, s/p lasix (ordered by cardiology) A total of 35 minutes was spent with the patient or on the floor today, greater than 50% of which was spent in coordination of care, chart review, medical decision making, and documentation Lorenzo Romero MD - 12/05/2019 10:40 AM CDT Internal Medicine Inpatient Progress Note Name: Allie Mcqueen ROOM/BED: [facility] PCP: Abundio Aguilar MD Admission date: 12/04/2019 LOS: 0 Assessment/ Plan Problem List: Active Problems: NSTEMI (non-ST elevated myocardial infarction) (HCC) Atrial fibrillation with RVR (HCC) Leukocytosis Steroid-induced hyperglycemia Assessment: 69yr year old male who is being seen in the hospital for SOB, lightheadedness and dizziness subsequently diagnosed with new onset A. Fib and NSTEMI. NSTEMI type I vs type II. CHARMAINE Score 2. A. fib with RVR seems to have resolved. Heart rate now inthe 110's with regular rhythm after receiving Cardizem bolus at OSH. Will obtain EKG to confirm he is now in normal sinus. He does not have any noted history of CHF, however reports chronic swelling in his lower extremities for which he is on oral lasix. Trace edema noted on physical exam. Lungs clear to auscultation bilaterally. He does also report a previous history of murmer, which I do not appreciate on auscultation. JVD unable to be assessed due to body habitus. No echo on file. Will hold lasix due to possible need for cath. He was started on heparin at OSH. New onset A. fib and elevated troponin concerning for type I NSTEMI. - first troponin 1.48 Plan: -Cardiology following - TTE pending. Cardiology to either stress test or angio based on results -Continue to Trend Troponins -Continuous telemetry -Continue Heparin drip -Continue Aspirin 81 mg daily, Metoprolol Succinate 50 mg daily, SL Nitro PRN -Will increase statin to high intensity statin, start Atorvastatin 40 mg daily - overnight oximetry Chronic Medical Conditions: HTN: Continue amlodipine HLD: Management as above CKD III General Anxiety Disorder: holding prn Klonopin DVT Prophylaxis:On Heparin ggt Diet: NPO , except meds Disposition: Admit to Hospital Code Status:Full Code HPI / History / ROS Hospital Course No notes on file Interval History Currently comfortable with no pain and no longer having dizziness. Denies any fevers/chills, shortness of breath, chest pain/pressure, nausea/vomiting/diarrhea . No new concerns or complaints. Review of Systems Complete 9 point review of systems performed and negative except as listed in the interval history Physical / Results Physical Exam/Vitals Vital signs: Blood pressure 124/86, pulse 81, temperature 98 F (36.7 C), resp. rate 16, height 185.4 cm (73"), weight 131.5 kg (289 lb 14.4 oz), SpO2 96 %. Physical Exam Constitutional: He is oriented to person, place, and time and well-developed, well-nourished, and inno distress. No distress. HENT: Head: Normocephalic and atraumatic. Eyes: Pupils are equal, round, and reactive to light. No scleral icterus. Neck: No JVD present. Cardiovascular: Regular rhythm. Tachycardia present. Exam reveals no gallop and no friction rub. No murmur heard. Pulmonary/Chest: Effort normal. No accessory muscle usage. No respiratory distress. He has no wheezes. He has no rales. Port in place in right upper chest with no evidence of gross bleeding or infection Abdominal: Soft. He exhibits no distension. There is no tenderness. There is no guarding. Multiple surgical sites, well healing with no evidence of bleeding or infection Musculoskeletal: He exhibits edema (Trace edema bilaterally ). Neurological: He is alert and oriented to person, place, and time. No facial motor asymmetry, tongue and uvula midline, speech clear Skin: Skin is warm and dry. No rash noted. He is not diaphoretic. Psychiatric: Affect and judgment normal. Nursing note and vitals reviewed. Patient Lines/Drains/Airways Status Active Lines Name: Placement date: Placement time: Site: Days: IVAD 11/26/19 Internal jugular Right 11/26/19 1055 Internal jugular 8 Incision 10/16/12 Right Knee Puncture site 3 10/16/12 0802 Knee 2606 Incision 11/12/15 Left Knee Lap sites 2 11/12/15 0729 Knee 1484 Medications Current Facility-Administered Medications Medication levothyroxine tablet 50 mcg atorvaSTATin (LIPITOR) tablet 40 mg tamsulosin (FLOMAX) capsule 0.4 mg amLODIPine (NORVASC) tablet 10 mg aspirin enteric coated tablet 81 mg acetaminophen (TYLENOL) tablet 650 mg melatonin tablet 3 mg senna-docusate sodium (SENOKOT-S;PERICOLACE) tablet 2 tablet And bisacodyl (DULCOLAX) suppository 10 mg And docusate sodium (THEREVAC-SB MINI;ENEMEEZ MINI) 283 MG enema 1 enema ondansetron (ZOFRAN ODT) dispersible tablet 4 mg And ondansetron (ZOFRAN) injection solution 4 mg acetaminophen (TYLENOL) tablet 650 mg Or acetaminophen (TYLENOL) suppository 650 mg metoprolol succinate (TOPROL XL) SR tablet (24 hr) 50 mg hEParin (50 units/mL) in D5W premixed IV solution (STANDARD-weight based) heparin (porcine) (5000 units/1 mL) IV dose 4,600 Units Or heparin (porcine) (5000 units/1 mL) IV dose 7,500 Units nitroglycerin (NITROSTAT) sublingual tablet 0.4 mg sodium chloride 0.9% flush (adult) 10 mL metoclopramide (REGLAN) inj soln 5 mg Labs/Imaging All labs and imaging were personally reviewed and pertinent findings are discussed in the history and assessment. Associated attestation - Isaiah Liang MD - 12/05/2019 2:41 PM CDT I saw the patient with the resident. I was present during the critical or costa portions of the service furnished by the resident. I verified in the medical record, all residents documentation/findings, including history, physical exam, and medical decision making and I agree with the resident's documentation. Note the following additions/corrections: chest pain free, on hearing drip, converted back to SR, echo pending. Monitor for bleeding, angio vs stress test as per cardiology. A total of 35 minutes was spent with the patient or on the floor today, greater than 50% of which was spent in coordination of care, chart review, medical decision making, and documentation documented in this encounter Plan of Treatment Date Type Specialty Care Team Description 12/11/2019 Infusion Visit INFUSION 12/11/2019 Orders Only Laboratory 12/11/2019 Office Visit Oncology Gabe Pereira MD [address] [place] [address] [phone] 12/11/2019 Infusion Visit INFUSION Name Type Priority Associated Diagnoses Order S chedule COMPLETE BLOOD COUNT Lab Routine Early A M draw for labs WITHOUT DIFFERENTIAL until d iscontinued starting 2019, 1 completed MAGNESIUM Lab Routine Early AM draw f or labs until discontin ued starting 2019, 1 completed RENAL FUNCTION PANEL Lab Routine Early A M draw for labs until discontin ued starting 2019, 1 completed Name Type Priority Associated Diagnoses Order S chedule CLINIC REFERRAL Referral Routine NSTEMI (non-ST elevated O rdered: 12/08/2019 CARDIOLOGY ONE CHART myocardial infarctio n) (FORM[facility]) Coronary artery disease involving [place] coronary artery of [place] heart without angina pectoris CLINIC REFERRAL HEART Referral Routine NSTEMI (non-ST elev ated Ordered: 12/08/2019 FAILURE PROGRAM ONE myocardial infarction ) CHART (HCC) Coronary artery disease involving [place] coronary artery of [place] heart without angina pectoris CLINIC REFERRAL HEART Referral Routine NSTEMI (non-ST elev ated Ordered: 12/08/2019 FAILURE PROGRAM ONE myocardial infarction ) CHART ([facility]) CLINIC REFERRAL SLEEP Referral Routine NSTEMI (non-ST elev ated Ordered: 12/08/2019 MEDICINE ONE CHART myocardial infarction) ([facility]) documented as of this encounter Procedures Procedure Name Priority Date/Time Associated Comments Diagnosis COMPLETE BLOOD COUNT Routine 12/08/2019 4:37 Res ults for this WITHOUT DIFFERENTIAL AM CDT procedu re are in the results section. MAGNESIUM Routine 12/08/2019 4:37 Results for this AM CDT procedure are i n the results section. RENAL FUNCTION PANEL Routine 12/08/2019 4:37 Res ults for this AM CDT procedure are i n the results section. XRAY CHEST PA AND Routine 12/07/2019 11:06 Result s for this LATERAL AM CDT procedure are i n the results section. LAB ONLY-COMPLETE Routine 12/07/2019 4:31 Result s for this BLOOD COUNT WITH AM CDT procedure a re in DIFFERENTIAL the results section. LIPID PANEL Routine 12/07/2019 4:31 Results for this AM CDT procedure are i n the results section. HEPATIC FUNCTION Routine 12/07/2019 4:31 Results for this PANEL AM CDT procedure are i n the results section. MAGNESIUM Routine 12/07/2019 4:31 Results for this AM CDT procedure are i n the results section. RENAL FUNCTION PANEL Routine 12/07/2019 4:31 Res ults for this AM CDT procedure are i n the results section. LAB ONLY-COMPLETE Routine 12/07/2019 4:31 Result s for this BLOOD COUNT WITH AM CDT procedure a re in DIFFERENTIAL the results section. GLUCOSE BY METER, Routine 12/06/2019 4:32 Result s for this POCT PM CDT procedure are i n the results section. EKG Routine 12/06/2019 3:40 Results for this PM CDT procedure are i n the results section. PTT CLINT 12/06/2019 3:31 Results for this PM CDT procedure are i n the results section. EKG STAT 12/06/2019 1:13 Results for this PM CDT procedure are i n the results section. ACTIVATED CLOTTING Routine 12/06/2019 12:29 Resul ts for this TIME POCT PM CDT procedure are i n the results section. CARDIAC CATH Routine 12/06/2019 12:12 Results for this POSSIBLE ANGIOPLASTY PM CDT procedu re are in STENT MACHINE [employer]IP[employer] the results section. PTT Timed Routine 12/06/2019 10:03 Results fo r this AM CDT procedure are i n the results section. COMPLETE BLOOD COUNT Routine 12/06/2019 6:35 Res ults for this WITHOUT DIFFERENTIAL AM CDT procedu re are in the results section. TROPONIN I CLINT 12/06/2019 6:35 Results for this AM CDT procedure are i n the results section. MAGNESIUM Routine 12/06/2019 6:35 Results for this AM CDT procedure are i n the results section. RENAL FUNCTION PANEL Routine 12/06/2019 6:35 Res ults for this AM CDT procedure are i n the results section. PTT Timed Routine 12/06/2019 2:22 Results fo r this AM CDT procedure are i n the results section. PTT Timed Routine 12/05/2019 8:35 Results fo r this PM CDT procedure are i n the results section. ECHO ADULT COMPLETE Routine 12/05/2019 1:25 Resu lts for this PM CDT procedure are i n the results section. PTT Timed Routine 12/05/2019 11:25 Results fo r this AM CDT procedure are i n the results section. TROPONIN I Timed Routine 12/05/2019 11:25 Results fo r this AM CDT procedure are i n the results section. TSH CLINT 12/05/2019 10:14 Results for this AM CDT procedure are i n the results section. EKG Routine 12/05/2019 9:25 Results for this AM CDT procedure are i n the results section. PTT Timed Routine 12/05/2019 6:59 Results fo r this AM CDT procedure are i n the results section. TROPONIN I Timed Routine 12/05/2019 6:59 Results fo r this AM CDT procedure are i n the results section. COMPLETE BLOOD COUNT Routine 12/05/2019 3:56 Res ults for this WITHOUT DIFFERENTIAL AM CDT procedu re are in the results section. MAGNESIUM Routine 12/05/2019 3:56 Results for this AM CDT procedure are i n the results section. RENAL FUNCTION PANEL Routine 12/05/2019 3:56 Res ults for this AM CDT procedure are i n the results section. BRAIN NATRIURETIC Routine 12/05/2019 3:56 Result s for this PEPTIDE AM CDT procedure are i n the results section. PTT CLINT 12/05/2019 1:27 Results for this AM CDT procedure are i n the results section. LAB ONLY-COMPLETE Routine 12/05/2019 12:49 Result s for this BLOOD COUNT WITH AM CDT procedure a re in DIFFERENTIAL the results section. LIPID PANEL Routine 12/05/2019 12:49 Results for this AM CDT procedure are i n the results section. GLYCATED HEMOGLOBIN Routine 12/05/2019 12:49 Resu lts for this AM CDT procedure are i n the results section. TROPONIN I Timed Routine 12/05/2019 12:49 Results fo r this AM CDT procedure are i n the results section. MAGNESIUM Routine 12/05/2019 12:49 Results for this AM CDT procedure are i n the results section. RENAL FUNCTION PANEL Routine 12/05/2019 12:49 Res ults for this AM CDT procedure are i n the results section. LAB ONLY-COMPLETE Routine 12/05/2019 12:49 Result s for this BLOOD COUNT WITH AM CDT procedure a re in DIFFERENTIAL the results section. EKG STAT 12/05/2019 12:36 Results for this AM CDT procedure are i n the results section. documented in this encounter Results RENAL FUNCTION PANEL (12/08/2019 4:37 AM CDT) Pathologist Sig nature Glucose 101 (H) 70 - 100 mg/dL [facility] [address] [facility] BUN 21 6 - 22 mg/dL [place] [address] [facility] Creatinine 1.49 (H) 0.80 - 1.30 [place] [address] [facility] mg/dL BUN/Creatinine Ratio 14.1 10.0 - 25.0 [place] [address] [facility] Sodium 142 135 - 145 meq/L [place] [address] [facility] Potassium 3.5 3.5 - 5.3 meq/L [place] [address] [facility] Chloride 108 99 - 110 meq/L [place] [address] [facility] CO2 22 20 - 29 meq/L [place] [address] [facility] Anion Gap with K 16 6 - 20 meq/L [facility] Calcium 9.0 8.5 - 10.[address] mg/dL Phosphorus 4.0 2.5 - 4.5 mg/dL [address] Albumin 3.7 3.5 - 5.0 g/dL [address] Corrected Calcium 9.2 8.5 - 10.[address] mg/dL Age [address] eGFR Non- 46 (L) >=[address] Haitian mL/min/1.73m2 eGFR 56 (L) >=[address] mL/min/1.73m2 Specimen Blood Performing Organization Address [facility] [place] [address] [place] [id number] MAGNESIUM (12/08/2019 4:37 AM CDT) Pathologist Sig nature Magnesium 2.1 1.8 - 2.4 mg/dL [address] Specimen Blood Performing Organization Address [facility] [place] Phone [place] [address] [address] COMPLETE BLOOD COUNT WITHOUT DIFFERENTIAL (12/08/2019 4:37 AM CDT) Pathologist Sig nature WBC 8.5 4.0 - 11.0 K/uL [address] RBC 4.37 (L) 4.40 - 5.80 M/uL [address] Hemoglobin 11.3 (L) 13.5 - 17.5 g/dL [address] Hematocrit 35.6 (L) 40.0 - 50.0 % [address] MCV 81.5 80.0 - 98.[address] MCH 25.9 25.5 - 34.[address] MCHC 31.7 31.5 - 36.5 g/dL [address] RDW-CV 16.6 (H) 11.5 - 15.5 % [address] RDW-SD 47.7 35.5 - 50.[address] Platelet Count 177 140 - 400 K/uL [address] MPV 9.7 8.5 - 12.0 fL [facility] Specimen Blood Performing Organization Address [facility]/Zipcode Phone Number [facility] [facility] [place] [address] XRAY CHEST PA AND LATERAL (12/07/2019 11:06 AM CDT) Specimen Narrative Performed At [facility] Patient Name: ALLIE MCQUEEN Date of :1950 Procedure: XRAY CHEST PA AND LATERAL Date of Service: 12/07/2019 EXAM: XRAY CHEST PA AND LATERAL INDICATION: dyspnea COMPARISON: 06/10/2010 TECHNIQUE: 2 view chest FINDING/IMPRESSION: Right IJ central venous catheter is present with tip a t the superior cavoatrial junction. Lungs are clear. No pleural effus ion or pneumothorax. Heart size is within normal limits. No a cute osseous abnormality. Finalized by: Guillermo Merino MD on 11/24 1:02 PM CDT Patient/Procedure Information: [facility] MRN/SHANNON: [id number] Order Number: [id number] Accession Number: [id number] Ordering Provider: NEETU ZIMMERMAN Authorizing Provider: ISAIAH LIANG Procedure Note Interface, Radiantres - 12/07/2019 1:04 PM CDT Patient Name: ALLIE MCQUEEN AM Date of : 1950 Procedure: XRAY CHEST PA AND LATERAL Date of Service: 12/07/2019 EXAM: XRAY CHEST PA AND LATERAL INDICATION: dyspnea COMPARISON: 06/10/2010 TECHNIQUE: 2 view chest FINDING/IMPRESSION: Right IJ central venous catheter is pres ent with tip at the superior cavoatrial junction. Lungs are clear. No pleural effusion or pneumothorax. Heart size is within normal limits. No acute osseous abnormality. Finalized by: Guillermo Merino MD on 11/24 1:02 PM CDT Patient/Procedure Information: [facility] MRN/SHANNON: [id number] Order Number: [id number] Accession Number: [id number] Ordering Provider: NEETU ZIMMERMAN Authorizing Provider: ISAIAH ALMAGUER Performing Organization Address [facility]/Zipcode Phone Number [id number] LAB ONLY-COMPLETE BLOOD COUNT WITH DIFFERENTIAL (12/07/2019 4:31 AM CDT) Pathologist Sig nature WBC 7.5 4.0 - 11.0 K/uL [address] RBC 4.49 4.40 - 5.[address] M/uL Hemoglobin 11.7 (L) 13.5 - 17.[address] g/dL Hematocrit 36.7 (L) 40.0 - 50.0 % [address] MCV 81.7 80.0 - 98.[address] MCH 26.1 25.5 - 34.[address] MCHC 31.9 31.5 - 36.[address] g/dL RDW-CV 16.7 (H) 11.5 - 15.5 % [address] RDW-SD 48.0 35.5 - 50.[address] Platelet Count 191 140 - 400 K/uL [address] MPV 9.4 8.5 - 12.[address] Seg Neut Absolute 5.6 1.8 - 8.0 K/uL [address] Lymphocytes Absolute 0.9 0.8 - 4.1 K/uL [place] [address] [facility] Monocytes Absolute 0.9 0.0 - 1.0 K/uL [address] Eosinophils Absolute 0.1 0.0 - 0.7 K/uL [place] [address] [facility] Basophil Absolute 0.0 0.0 - 0.2 K/uL [address] Immature Granulocyte 0.02 0.00 - 0.[address] Absolute K/uL Neutrophils Abs. 5,600 /uL [address] (Segs and Bands) Neutrophils Percent 74.5 % [address] Lymphocytes Percent 11.4 % [address] Monocytes Percent 12.2 % [address] Immature Granulocyte 0.3 % [address] Percent Eosinophils Percent 1.2 % [address] Basophil Percent 0.4 % [address] Nucleated RBC 0 /[address] Specimen Blood Performing Organization Address City/State/Zipcode Phone Number [address] [address] RENAL FUNCTION PANEL (12/07/2019 4:31 AM CDT) Pathologist Sig [facility] Glucose 109 (H) 70 - 100 mg/dL [address] BUN 16 6 - 22 mg/dL [address] Creatinine 1.33 (H) 0.80 - 1.[address] mg/dL BUN/Creatinine Ratio 12.0 10.0 - 25.[address] Sodium 142 135 - 145 meq/L [address] Potassium 3.6 3.5 - 5.3 meq/L [address] Chloride 109 99 - 110 meq/L [address] CO2 22 20 - 29 meq/L [address] Anion Gap with K 15 6 - 20 meq/L [address] Calcium 8.9 8.5 - 10.[address] mg/dL Phosphorus 3.9 2.5 - 4.5 mg/dL [address] Albumin 3.6 3.5 - 5.0 g/dL [address] Corrected Calcium 9.2 8.5 - 10.[address] mg/dL Age [address] eGFR Non- 53 (L) >=[address] Haitian mL/min/1.73m2 eGFR 64 >=[address] mL/min/1.73m2 Specimen Blood Performing Organization Address [facility] [place] Phone Number [address] [place] [address] MAGNESIUM (12/07/2019 4:31 AM CDT) Pathologist Sig [facility] Magnesium 2.2 1.8 - 2.4 mg/dL [address] Specimen Blood Performing Organization Address [facility] Phone Number [address] [place] [address] LIPID PANEL (12/07/2019 4:31 AM CDT) Pathologist Sig [facility] Cholesterol 130 100 - 200 mg/dL [facility] Triglyceride 92 50 - 150 mg/dL [facility] HDL 45 40 - 80 mg/dL [facility] LDL 67 0 - 129 mg/dL [facility] Specimen Blood Performing Organization Address [facility] Phone Number [facility] [address] [place] [address] [phone] HEPATIC FUNCTION PANEL (12/07/2019 4:31 AM CDT) Pathologist [facility] Alkaline Phosphatase 88 30 - 150 U/L [address] AST - SGOT 15 0 - 35 U/L [address] ALT - SGPT 18 0 - 55 U/L [address] Bilirubin Total 0.5 0.2 - 1.2 mg/dL [address] Bilirubin Indirect 0.2 0.0 - 0.8 mg/dL [address] Bilirubin Direct 0.3 0.0 - 0.4 mg/dL [address] Albumin 3.6 3.5 - 5.0 g/dL [address] Protein Total 6.6 6.0 - 8.2 g/dL [address] Specimen Blood Performing Organization Address [facility] [place] Phone Number [place] [address] [facility] [address] [place] [address] GLUCOSE BY METER, POCT (12/06/2019 4:32 PM CDT) [facility] Glucose POC 107 (H) 70 - 100 mg/dL [facility] POINT OF CARE TESTING Specimen Blood Performing Organization Address [facility] [place] Phone Number [facility] POINT OF [address] [place] [address] CARE TESTING EKG to be done 3 hours post coronary intervention (12/06/2019 3:40 PM CDT)Only the most recent of4 resultswithin the time period is included. Pathologist [facility] EKG WAVEFORM TRACEMASTER SELINA LLB Sinus rhythm with Premature atrial complexes Pulmonary disease pattern Left anterior fascicular block ST & T wave abnormality, consider inferior ischemia ST & T wave abnormality, consider anterolateral ischem ia Prolonged QT interval or tu fusion, consider myocardial disease, electrolyte imbalance, or drug effects Abnormal ECG Ventricular Rate: 87 BPM Atrial Rate: 87 BPM P-R Interval: 168 ms QRS Duration: 96 ms Q-T Interval: 428 ms QTc Calculation(Bazett): 515 ms Calculated P [place]: 68 degrees Calculated R [place]: -69 degrees Calculated T [place]: -69 degrees Specimen Narrative Performed At This result has an attachment that is no t available. Performing Organization Address City/[facility]/Zipcode Phone Number [place]UM [place] PTT (12/06/2019 3:31 PM CDT) Pathologist Sig nature APTT 91 (H) 24 - 35 secs [facility] Specimen Blood Performing Organization Address City/[facility]/Zipcode Phone Number [facility] [address] [place] [address] ACTIVATED CLOTTING TIME POCT (12/06/2019 12:29 PM CDT) Pathologist Sig nature Activated Clotting 131 100 - 150 Secs [facility] POINT OF CARE TESTING Specimen Blood Narrative Performed At DEVICE: [id number] [facility] POINT OF CARE TESTING Performing Organization Address [facility]ode Phone Number [facility] [address] [place] [address] CARE TESTING Cardiac Cath Possible Angioplasty Stent Piping Blocker - Both (12/06/2019 12:12 PM CDT) Specimen Narrative Performed At This result has an attachment that is no t available. [facility] This report contains a post-confirmation addendum and replaces previous reports Addendum Created On: 12/07/2019 Created By: RONIT MALDONADO DO Please note that the section stating the LAD stent was unsuccessfulis incorrect.The stent was successful and was placed and deployed at 20 monse. Electronically signed by RONIT MALDONADO DO on 2019 at 01:32 PM Patient: ALLIE MCQUEEN [facility] Exam Date: 12/06/[address] Exam Time: 12:12 PM- 12:28 [place] [address] Department of Interventional Cardiology Diagnostic Heart Catheterization Report, Cardiac Interventional Report, Right Heart Catheterization Report : 1950Fluoro Time: 11.4 min. Patient Status: Inpatient Age: 69 year(s)Cath Status: [facility] Diagnostic Baggage Agent Supervisor:RONIT Martinez DO Baling Press Operator:Krysta VARGHESE Right Heart Cathing RONIT ROSARIO DO Physician: Indication:Angina/MD: myocardial inf arction without ST elevation (NSTEMI). Procedures Performed: Fluoro 0.1-60 Minutes. Medication/Infusi on/Drip. Art Access - R femoral artery*. Mendoza Access - R femoral vein. Selective Lt Coronary Angiography. Selective Rt Coron bobbi Angiography. Interventional IVUS. Right Heart Catheterization. Drug Eluting Stent Placement. Hemostasis with Manual Pressure. Hemostasis with Starclose. Activated Clotting Time. Coronary Angiography The coronary circulation is right dominant. Left Main Left main artery: The segment is large. There is a 30 % stenosis. Left Anterior Descending Left anterior descending artery: The seg ment is large. Proximal left anterior descending: There is a 70 % stenosis. First diagonal: The segment is small. Angiogra phy shows moderate atherosclerosis. There is a 40 % stenosis. Second diagonal: The segment is moderately size d. Angiography shows mild atherosclerosis. Circumflex Circumflex artery: The segment is large. Proximal circumflex: There is a 30 % stenosis. First obtuse marginal: The segment is small. Angiography shows mild atherosclerosis. Second obtuse marginal: The segment is large. Angiography shows mild atherosclerosis. Right Coronary Right coronary artery: The segment is la rge and moderately ectatic. Right posterior descending artery: The segment is large. Angiography shows mild atheroscle rosis. Right Posterolateral Segment: The segment is large. Angiography shows mild atherosclerosis. Left Heart Cath Ejection fraction was not calculated. Interventional Details Left main artery: The initial stenosis w as 30 %. This was an ACC/AHA High/C lesion for intervention. IVUS measurements were performed using a [employer] EYE IVUS. Guidewire crossing was successful. A successful IVUS was performed using a [employer] EYE IVUS During Procedure, a CATH GUIDE 6FR LAUNCHER 6EBU3.75 during setup, and a ZAHRA GE 0.014 182CM MODERATE SUPPORT during setup. IVUS minimum luminal area 10.2mm^2(insignificant). Following intervention there is a 30 % r esidual stenosis. There was CHARMAINE Flow 3 before the procedure and CHARMAINE Flow 3 following the procedure. Proximal left anterior descending: The i nitial stenosis was 70 %. This was an ACC/AHA High/C lesion for intervention. IVUS measurements were performed using a [employer] EYE IVUS. Lesion CSA was 3.4 mm2 which is significant. Guidewire crossing was successful. A successful IVUS was performed using a [employer] IVUS During Procedure, a CATH GUIDE 6FR LAUNCHER 6EBU3.75 during setup, and a ZAHRA GE 0.014 182CM MODERATE SUPPORT during setup. The total number of attempt(s) was 1. IV US minimum luminal area 3.4mm^2(significant). A Drug Eluting Stent was successful usin g a RESOLUTE JIA RX3.0X38MM During Procedure. The total number of attempt(s) was 1. Th e maximum inflation pressure was 20(monse). Following intervention there is a 0 % re sidual stenosis. There was CHARMAINE Flow 3 before the procedure and CHARMAINE Flow 3 following the procedure. Interventional Conclusions: Interventional Summary Left main artery: A successful IVUS was performed using a [employer] IVUS. Proximal left anterior descending: A successful IVUS was perfor med using a [employer] IVUSA Drug Eluting Stent was attempted but was unsuccessful using a RESOLUTE JIA R X3.0X38MM. Procedure Narrative: Access Right femoral artery: The puncture site was infiltrated with 1 % Lidocaine. Vascular access was obtained using modified seldinger technique and a SHEATH SI MICHAEL PLUS 6FR was advanced into the vessel. Hemostasis/Sheath Status: Hemostasis was successful using a(n) STARCLOSE CLOSURE VASC SE5-6FR 73885-12. Right femoral vein: The puncture site was infiltrated with 1 % Lidocaine. Vascular access was obtained and a SHEATH SI MICHAEL PLUS 7FR was advanced into the vessel. Hemostasis/Sheath Status: Hemostasis was successful using manual compression. Coronary Angiography Left Coronary System: A catheter was positioned into the Vesse l Ostium under fluoroscopic guidance. Contrast injections were performed using hand injection. Angiograms were obtain ed in multiple views. Right Coronary System: A catheter was positioned into the Vesse l Ostium under fluoroscopic guidance. Contrast injections were performed using hand injection. Angiograms were obtain ed in multiple views. Right Heart Cath A CATH SWAN YESSI ME SHORE 7FR catheter w as advanced to the pulmonary artery wedge position under fluoroscopy guidance. Measurements of pr essures, arterial and venous oxygen saturation and Right Heart Catheterization - Raul were obtained. The catheter was removed at once. Contrast: Description Dose Unit HIS No. Reference No. Serial No.Lot No. Omnipaque 75.000 [id number] X-Ray: Exam total DAP:8580.50cG ycm- sqAir Kerma/Exam Total Dose:914 mGy Acute complication:No complications Ordering Physician:KAUR ELLIOTT MD [facility] Calf Skinner:SULEIMAN Martinez RN Scrub: Diaz Monique Monitor: KENDRA ESCOBEDO Ship Ceiler: RAFAEL FALL, RT(R) Primary Baggage Agent Supervisor:KAUR ELLIOTT MD Electronically signed by RONIT MALDONADO DO on 2019 at 06:38 PM Procedure Note Interface, Inc Results No Pull Forward - 12/07/2019 1:35 PM CDT This report contains a post-confirmation addendum and replaces previous reports Addendum Created On: 12/07/2019 Created By: RONIT MALDONADO DO Please note that the section stating the LAD stent was unsuccessfulis incorrect. The stent was successful and was placed and deployed at 20 monse. Patient: ALLIE MCQUEEN [facility] Exam Date: 12/06/[address] Exam T varghese: 12:12 PM-12:28 [place] [address] [facility] Interventional Cardiology Diagnostic Heart Catheterization Report, Cardiac Interventional Report, Right Heart Catheterization Report : 1950 Fluoro Time: 11.4 min. Patient Status: Inpatient Age: 69 year(s) Cath Status: Patient Room: [facility] Gender: Male Diagnostic Baggage Agent Supervisor: RONIT MALDONADO DO Baling Press Operator: RONIT MALDONADO DO Right Heart Cathing RONIT MALDONAOD DO Physician: Indication: Angina/MD: myocardial infar ction without ST elevation (NSTEMI). Procedures Performed: Fluoro 0.1-60 Minutes. Medication/Infusi on/Drip. Art Access - R femoral artery*. Mendoza Access - R femoral vein. Selective Lt Coronary Angiography. Selective Rt Coron bobbi Angiography. Interventional IVUS. Right Heart Catheterization. Drug Eluting Stent Placement. Hemostasis with Manual Pressure. Hemostasis with Starclose. Activated Clotting Time. Coronary Angiography The coronary circulation is right domina nt. Left Main Left main artery: The segment is large. There is a 30 % stenosis. Left Anterior Descending Left anterior descending artery: The seg ment is large. Proximal left anterior descending: There is a 70 % stenosis. First diagonal: The segment is small. Angiogra phy shows moderate atherosclerosis. There is a 40 % stenosis. Second diagonal: The segment is moderately size d. Angiography shows mild atherosclerosis. Circumflex Circumflex artery: The segment is large. Proximal circumflex: There is a 30 % stenosis. First obtuse marginal: The segment is small. Angiography shows mild atherosclerosis. Second obtuse marginal: The segment is large. Angiography shows mild atherosclerosis. Right Coronary Right coronary artery: The segment is la rge and moderately ectatic. Right posterior descending artery: The segment is large. Angiography shows mild atheroscle rosis. Right Posterolateral Segment: The segment is large. Angiography shows mild atherosclerosis. Left Heart Cath Ejection fraction was not calculated. Interventional Details Left main artery: The initial stenosis w as 30 %. This was an ACC/AHA High/C lesion for intervention. IVUS measurements were performed using a [employer] IVUS. Guidewire crossing was successful. A successful IVUS was performed using a [employer] IVUS During Procedure, a CATH GUIDE 6FR LAUNCHER 6EBU3.75 during setup, and a ZAHRA GE 0.014 182CM MODERATE SUPPORT during setup. IVUS minimum luminal area 10.2mm^2(insignificant). Following intervention there is a 30 % r esidual stenosis. There was CHARMAINE Flow 3 before the procedure and CHARMAINE Flow 3 following the procedure. Proximal left anterior descending: The i nitial stenosis was 70 %. This was an ACC/AHA High/C lesion for intervention. IVUS measurements were performed using a [employer] IVUS. Lesion CSA was 3.4 mm2 which is significant. Guidewire crossing was succ essful. A successful IVUS was performed using a [employer] IVUS During Procedure, a CATH GUIDE 6FR LAUNCHER 6EBU3.75 during setup, and a ZAHRA GE 0.014 182CM MODERATE SUPPORT during setup. The total number of attempt(s) was 1. IV US minimum luminal area 3.4mm^2(significant). A Drug Eluting Stent was successful usin g anthony RESOLUTE JIA RX3.0X38MM During Procedure. The total number of attempt(s) was 1. Th e maximum inflation pressure was 20(monse). Following intervention there is a 0 % re sidual stenosis. There was CHARMAINE Flow 3 before the procedure and CHARMAINE Flow 3 following the procedure. Interventional Conclusions: Interventional Summary Left main artery: A successful IVUS was performed using a [employer] IVUS. Proximal left anterior descending: A successful IVUS was perfor med using a [employer] IVUSA Drug Eluting Stent was attempted but was unsuccessful using a R ESOLUTE JIA RX3.0X38MM. Procedure Narrative: Access Right femoral artery: The puncture site was infiltrated with 1 % Lidocaine. Vascular access was obtained using modified seldinger technique and a SHEATH SI MICHAEL PLUS 6F R was advanced into the vessel. Hemostasis/Sheath Status: Hemostasis was successful using a(n) STARCLOSE CLOSURE VASC SE5-6FR 35688-88. Right femoral vein: The puncture site was infiltrated with 1 % Lidocaine. Vascular access was obtained and a SHEATH SI MICHAEL PLUS 7FR was advanced into the ve ssel. Hemostasis/Sheath Status: Hemostasis was successful using manual compression. Coronary Angiography Left Coronary System: A catheter was positioned into the Vesse l Ostium under fluoroscopic guidance. Contrast injections were performed using hand injection. Angiogra ms were obtained in multiple views. Right Coronary System: A catheter was positioned into the Vesse l Ostium under fluoroscopic guidance. Contrast injections were performed using hand injection. Angiogra ms were obtained in multiple views. Right Heart Cath A CATH SWAN YESSI HI SHORE 7FR catheter w as advanced to the pulmonary artery wedge position under fluoroscopy guidance. Measurements of pr essures, arterial and venous oxygen saturation and Right Heart Catheterization - Raul were obtained. Th e catheter was removed at once. Contrast: Description Dose Un it HIS No. Reference No. Serial No. Lot No. Omnipaque 75.000 ml C34 C34 X-Ray: Exam total DAP: 8580.50 cGycm-sq Air Kerma/Exam Total Dose: 914 mGy Acute complication: No complicati ons Ordering Physician: KAUR Hunter MD [facility] Calf Skinner: SULEIMAN SINGH, RN Scrub: Diaz correa Monitor: JAIME ADAMS DIESEL STATIONARY ENGINEER Ship Ceiler: RAFAEL CORDOVA, RT(R) Primary Baggage Agent Supervisor: KAUR Hunter MD Performing Organization Address [facility] Phone Number [facility] [place], [place] PTT (12/06/2019 10:03 AM CDT) Pathologist Sig nature APTT 74 (H) 24 - [address] Specimen Blood Performing Organization Address [facility] [place] Phone Number [address] [place] [address], [place] [address] TROPONIN I (12/06/2019 6:35 AM CDT) Pathologist Sig nature Troponin I 0.324 (H) 0.000 - 0.028 ng/mL [address] Specimen Blood Performing Organization Address [facility] [place] Phone Number [address] [place] [address], [place] [address] COMPLETE BLOOD COUNT WITHOUT DIFFERENTIAL (12/06/2019 6:35 AM CDT) Pathologist Sig nature WBC 9.9 4.0 - 11.0 K/uL [address] RBC 4.62 4.40 - 5.80 M/uL [address] Hemoglobin 11.8 (L) 13.5 - 17.5 g/dL [address] Hematocrit 38.3 (L) 40.0 - 50.0 % [address] MCV 82.9 80.0 - 98.[address] MCH 25.5 25.5 - 34.[address] MCHC 30.8 (L) 31.5 - 36.5 g/dL [address] RDW-CV 17.0 (H) 11.5 - 15.5 % [address] RDW-SD 49.2 35.5 - 50.[address] Platelet Count 182 140 - 400 K/uL [address] MPV 9.9 8.5 - 12.[address] Specimen Blood Performing Organization Address [facility] [place] Phone Number [address] [place] [address], [place] [address] MAGNESIUM (12/06/2019 6:35 AM CDT) Pathologist Sig nature Magnesium 2.1 1.8 - 2.4 mg/dL [address] Specimen Blood Performing Organization Address [facility] [place] Phone Number [place] [address] [facility] [address], [place] [address] RENAL FUNCTION PANEL (12/06/2019 6:35 AM CDT) Pathologist Sig nature Glucose 116 (H) 70 - 100 mg/dL [address] BUN 20 6 - 22 mg/dL [address] Creatinine 1.52 (H) 0.80 - 1.[address] mg/dL BUN/Creatinine Ratio 13.2 10.0 - 25.[address] Sodium 141 135 - 145 meq/L [address] Potassium 3.8 3.5 - 5.3 meq/L [address] Chloride 107 99 - 110 meq/L [address] CO2 23 20 - 29 meq/L [address] Anion Gap with K 15 6 - 20 meq/L [address] Calcium 8.8 8.5 - 10.[address] mg/dL Phosphorus 3.1 2.5 - 4.5 mg/dL [address] Albumin 3.5 3.5 - 5.0 g/dL [address] Corrected Calcium 9.2 8.5 - 10.[address] mg/dL Age [address] eGFR Non- 45 (L) >=[address] Haitian mL/min/1.73m2 eGFR 55 (L) >=[address] mL/min/1.73m2 Specimen Blood Performing Organization Address [facility] [place] Phone Number [address] [place] [address] PTT (12/06/2019 2:22 AM CDT) Pathologist Sig nature APTT 129 (H) 24 - 35 secs [place] [address] [facility] Specimen Blood Performing Organization Address [facility] Phone Number [place] [address] [facility] [address] [place] [address] PTT (12/05/2019 8:35 PM CDT) Pathologist Sig nature APTT 119 (H) 24 - 35 secs [place] [address] [facility] Specimen Blood Performing Organization Address City/State/Zipcode Phone Number [facility] [address] [place] [address] ECHO ADULT COMPLETE (12/05/2019 1:25 PM CDT) Specimen Narrative Performed At This result has an attachment that is no t available. [facility] Patient: ALLIE MCQUEEN MR#:[id number] Exam Date:12/05/[address] [facility] [address] STransthoracic Echocardiogram [place], [id number] BP: 148/90 mmHg HR: : 1950 Exam Location:Hei 73.00 "(185.4 cm) Age: 69 year(s) [facility]: 289 lbs.(131.09 kg) Gender:Male Patient Status: Inpatient BSA:2.52 m2 Router Operator Pin:LISBET ARANA Reading Physician:KAUR LO MD Ordering Physician: Krysta MUHAMMAD Procedure Indication(s): NST ALONZO Examination: TTE Complete 2D(m-mode), Complete Spectral Doppler, Color Doppler Exam Comments There was no I.V. access, unable to use Definity Conclusions Left Ventricle: Lxnk-ca-alehgpicdi reducedleft ventr icular systolic function. The ejection fraction is visually estimated to be 40 %. The basal inferior and mid inferior wall segments are hypokineti c. Right Ventricle: Markedly dilated right ventricle. Reduce d right ventricular systolic function. Pulmonary Artery: Degree of pulmonary hypertension likely underestimated due to reduced right ventricular function. Right Atrium: Dilated right atrium. Tricuspid Valve: Mild tricuspid regurgitation. IVC: Dilated IVC with minimal respirophasic changes. Comparison Study Comparison Study: No previous echo was available for c omparison Findings Left Ventricle: Dilated left ventricle. Normal left vent ricular wall thickness. Vdmy-of-nudzdpyntv reducedleft ventricular systolic function. The ejection fraction is visually estimated to be 40 %. The basal inferior and mid inferior wall segments are hypokinetic. Grade 1 left ventricular diastolic dysfunction. IVS: There is septal "bounce" motion. Left Atrium: Normal left atrial size by visual assessment. Aortic Valve: The aortic valve is probably tricuspid. Aortic sclerosis is present. Mild aortic regurgitation. No aortic stenosis. Aorta: The ascending aorta is normal in size measuring 38.0 m m. Mitral Valve: Mild mitral leaflet thickening. No signi ficant mitral regurgitation. No mitral stenosis. IAS: Atrial septum is not well visualized. Right Ventricle: Markedly dilated right ventricle. Reduce d right ventricular systolic function. Pulmonary artery systolic pressure is measured at 47 mmHg. TAPSE measures 13 mm. Pulmonary Artery: Degree of pulmonary hypertension likely underestimated due to reduced right ventricular function. Right Atrium: Dilated right atrium. Tricuspid Valve: Normal tricuspid valve structure. Mild tricuspid regur gitation. Pulmonic Valve: Normal pulmonary valve structure. No significant pulmo nary regurgitation. IVC: Dilated IVC with minimal respirophasic changes. Pericardium: No significant pericardial effusion. No pleural effusi on. Measurements Left Ventricle Aortic Valve Label ValueNormal Value LabelValueNormal Value LVDd, 2D 60.2 mmLVOT Vmax 74 cm/s LVDs, 2D 31.3 mmAV Vmax 185 cm/s IVSd, 2D 10.3 mmLVOTd 25 mm LVPWd, 2D 12 .9 mmLVOT VTI14.24 cm FS, 2D 48 % LVOT PGmax2 mmHg LVEF, 2D 79 % AV Egbnh557 cm/s LVEDV, 2D 18 1 ml AV VTI31.53 cm LVESV, 2D 39 mlAV PGmax14 mmHg Right Ventricle AV PGmean 8 mmHg Label ValueNormal Value OSIRIS (Vmax)2 cm-sq TAPSE 13 mmAV Vmax, Rcnciay989 cm/s Aorta Mitral Valve Label ValueNormal Value LabelValueNormal Value Ao Asc 38 mmMV E Vmax 48 cm/s MV A Vmax 76 cm/s MV Dec Time 177 ms Tricuspid Valve LabelValue Normal Value TR Vmax 281 cm/s TR Pmax 32 mmHg RA Pressure 15 mmHg RVSP47 mmHg Electronically signed by KAUR ELLIOTT MD on 020 at 03:16 PM (No Signature Object) Wall Motion Scores -1 - Not Scored, 0 - Unknown, 1 - Normal or hyperkinesia,2 - Hypokinesia,3 - Akinesia, 4 - Dyskinesia, 5 - Aneurysm Procedure Note Interface, Inc Results No Pull Forward - 12/05/2019 3:17 PM CDT Patient: ALLIE MCQUEEN MR#: [id number] Exam Date: 12/05/[address] [facility] [address] Transthoracic Echocardiogram ARNEL Hurt [address] BP: 148/90 mmHg HR: : 1950 Exa m Location: Height: 73.00 "(185.4 cm) Age: 69 year(s) Pat ient Room: [facility] Weight: 289 lbs.(131.09 kg) Gender: Male Pat ient Status: Inpatient BSA: 2.52 m2 Router Operator Pin: LOLA HEATON RDCS Reading Physician: KAUR SIMMONS MD Ordering Physician: ANUSHA Sweet DO Procedure Indication(s): NSTEMI Examination: TTE Com plete 2D(m-mode), Complete Spectral Doppler, Color Doppler Exam Comments There w as no I.V. access, unable to use Definity Conclusions Left Ventricle: Fpbd-mt-zrqlxjnthu reduced left ventric ular systolic function. The ejection fraction is visually estimated to be 40 %. The basal inferior and mid inferior wall segments are hypokinetic. Right Ventricle: Markedly dilated right ventricle. Reduce d right ventricular systolic function. Pulmonary Artery: Degree of pulmonary hypertension likely underestimated due to reduced right ventricular function. Right Atrium: Dilated right atrium. Tricuspid Valve: Mild tricuspid regurgitation. IVC: Dilated IVC with minimal respirophasic c hanges. Comparison Study Comparison Study: No previous echo was a vailable for comparison Findings Left Ventricle: Dilated left ventricle. Normal left vent ricular wall thickness. Ketl-xp-huaxhkbvru reduced left ventricular systolic function. The ejection fraction is visually estimated to be 40 %. The basal inferior and mid inferior wall segments are hypokinetic. Grade 1 left ventricular diastolic dysfunction. IVS: There is septal "bounce" motion. Left Atrium: Normal left atrial size by visual assess ment. Aortic Valve: The aortic valve is probably tricuspid. Aortic sclerosis is present. Mild aortic regurgitation. No aortic stenosis. Aorta: The ascending aorta is normal in size me asuring 38.0 mm. Mitral Valve: Mild mitral leaflet thickening. No signi ficant mitral regurgitation. No mitral stenosis. IAS: Atrial septum is not well visualized. Right Ventricle: Markedly dilated right ventricle. Reduce d right ventricular systolic function. Pulmonary artery systolic pressure is measured at 47 mmHg. TAPSE measures 13 mm. Pulmonary Artery: Degree of pulmonary hypertension likely underestimated due to reduced right ventricular function. Right Atrium: Dilated right atrium. Tricuspid Valve: Normal tricuspid valve structure. Mild t ricuspid regurgitation. Pulmonic Valve: Normal pulmonary valve structure. No sig nificant pulmonary regurgitation. IVC: Dilated IVC with minimal respirophasic c hanges. Pericardium: No significant pericardial effusion. No pleural effusion. Measurements Left Ventricle Aortic Valve Label Value Norm al Value Label Value Normal Value LVDd, 2D 60.2 mm LVOT Vmax 74 cm/s LVDs, 2D 31.3 mm AV Vmax 185 cm/s IVSd, 2D 10.3 mm LVOTd 25 mm LVPWd, 2D 12.9 mm LVOT VTI 14.24 cm FS, 2D 48 % LVOT PGmax 2 mmHg LVEF, 2D 79 % AV Vmean 134 cm/s LVEDV, 2D 181 ml AV VTI 31.53 cm LVESV, 2D 39 ml AV PGmax 14 mmHg Right Ventricle AV PGmean 8 mmHg Label Value Norm al Value OSIRIS (Vmax) 2 cm-sq TAPSE 13 mm AV Vmax, Caliper 185 cm/s Aorta Mitral Valve Label Value Norm al Value Label Value Normal Value Ao Asc 38 mm MV E Vmax 48 cm/s MV A Vmax 76 cm/s MV Dec Time 177 ms Tricuspid Valve Label Value Norm al Value TR Vmax 281 cm/s TR Pmax 32 mmHg RA Pressure 15 mmHg RVSP 47 mmHg (No Signature Object) Wall Motion Scores -1 - Not Scored, 0 - Unknown, 1 - Normal or hyperkinesia, 2 - Hypokinesia, 3 - Akinesia, 4 - Dyskinesia, 5 - Aneurysm Performing Organization Address [facility] [place] Phone [place] [facility] [place] PTT (12/05/2019 11:25 AM CDT) Pathologist Sig nature APTT 63 (H) 24 - 35 secs [place] [address] [facility] Specimen Blood Performing Organization Address [facility] [place] Phone Number [address] [place] [address] TROPONIN I (12/05/2019 11:25 AM CDT) Pathologist Sig nature Troponin I 0.864 (H) 0.000 - 0.028 ng/mL [place] [address] [facility] Specimen Blood Performing Organization Address [facility] [place] Phone Number [address] [place] [address], [place] [address] TSH (12/05/2019 10:14 AM CDT) Pathologist Sig [facility] TSH 5.00 0.40 - 5.00 uIU/mL [address] Specimen Blood Performing Organization Address [facility] [place] Phone Number [address] [place] [address] PTT (12/05/2019 6:59 AM CDT) Pathologist Sig [facility] APTT 60 (H) 24 - [address] Specimen Blood Performing Organization Address [facility] [place] Phone Number [address] [place] [address] TROPONIN I (12/05/2019 6:59 AM CDT) Pathologist Sig [facility] Troponin I 1.255 (H) 0.000 - 0.028 ng/mL [address] Specimen Blood Performing Organization Address [facility] [place] Phone Number [address] [place] [address] BRAIN NATRIURETIC PEPTIDE (12/05/2019 3:56 AM CDT) Pathologist Sig [facility] BNP 93 0 - 100 pg/mL [address] Specimen Blood Performing Organization Address [facility] Phone Number [address] [place] [address] COMPLETE BLOOD COUNT WITHOUT DIFFERENTIAL (12/05/2019 3:56 AM CDT) Pathologist Sig [facility] WBC 10.6 4.0 - 11.0 K/uL [address] RBC 4.69 4.40 - 5.80 M/uL [address] Hemoglobin 12.1 (L) 13.5 - 17.5 g/dL [address] Hematocrit 38.4 (L) 40.0 - 50.0 % [address] MCV 81.9 80.0 - 98.[address] MCH 25.8 25.5 - 34.[address] MCHC 31.5 31.5 - 36.5 g/dL [address] RDW-CV 16.3 (H) 11.5 - 15.5 % [address] RDW-SD 47.4 35.5 - 50.[address] Platelet Count 177 140 - 400 K/uL [address] MPV 9.4 8.5 - 12.[address] Specimen Blood Performing Organization Address [facility] [place] Phone Number [place] [address] [facility] [address] [place] [phone] MAGNESIUM (12/05/2019 3:56 AM CDT) Pathologist Sig nature Magnesium 2.2 1.8 - 2.4 mg/dL [place] [address] [facility] Specimen Blood Performing Organization Address [facility] [place] Phone Number [address] [place] [phone] RENAL FUNCTION PANEL (12/05/2019 3:56 AM CDT) Pathologist Sig nature Glucose 144 (H) 70 - 100 mg/dL [address] BUN 19 6 - 22 mg/dL [address] Creatinine 1.34 (H) 0.80 - 1.[address] mg/dL BUN/Creatinine Ratio 14.2 10.0 - 25.[address] Sodium 141 135 - 145 meq/L [address] Potassium 4.0 3.5 - 5.3 meq/L [address] Chloride 107 99 - 110 meq/L [address] CO2 24 20 - 29 meq/L [address] Anion Gap with K 14 6 - 20 meq/L [address] Calcium 8.9 8.5 - 10.5 [place] [address] [facility] mg/dL Phosphorus 3.2 2.5 - 4.5 mg/dL [address] Albumin 3.7 3.5 - 5.0 g/dL [address] Corrected Calcium 9.1 8.5 - 10.5 [place] [address] [facility] mg/dL Age [address] eGFR Non- 53 (L) >=[address] Haitian mL/min/1.73m2 eGFR 64 >=[address] mL/min/1.73m2 Specimen Blood Performing Organization Address City/[facility]/Zipcode Phone Number [address] [place] [address] PTT (12/05/2019 1:27 AM CDT) Pathologist Sig [facility] APTT 31 24 - [address] Specimen Blood Performing Organization Address [facility] Phone Number [address] [place] [address] LAB ONLY-COMPLETE BLOOD COUNT WITH DIFFERENTIAL (12/05/2019 12:49 AM CDT) Pathologist Sig [facility] WBC 12.5 (H) 4.0 - 11.0 K/uL [address] RBC 4.92 4.40 - 5.[address] M/uL Hemoglobin 12.7 (L) 13.5 - 17.[address] g/dL Hematocrit 40.1 40.0 - 50.0 % [address] MCV 81.5 80.0 - 98.[address] MCH 25.8 25.5 - 34.[address] MCHC 31.7 31.5 - 36.[address] g/dL RDW-CV 16.3 (H) 11.5 - 15.5 % [address] RDW-SD 47.1 35.5 - 50.[address] Platelet Count 200 140 - 400 K/uL [address] MPV 9.9 8.5 - 12.[address] Seg Neut Absolute 10.4 (H) 1.8 - 8.0 K/uL [address] Lymphocytes Absolute 1.2 0.8 - 4.1 K/uL [place] [address] [facility] Monocytes Absolute 0.7 0.0 - 1.0 K/uL [place] [address] [facility] Eosinophils Absolute 0.1 0.0 - 0.7 K/uL [place] [address] [facility] Basophil Absolute 0.0 0.0 - 0.2 K/uL [address] Immature Granulocyte 0.07 (H) 0.00 - 0.[address] Absolute K/uL Neutrophils Abs. 10,400 /uL [address] (Segs and Bands) Neutrophils Percent 83.1 % [address] Lymphocytes Percent 9.7 % [address] Monocytes Percent 5.3 % [address] Immature Granulocyte 0.6 % [address] Percent Eosinophils Percent 1.0 % [address] Basophil Percent 0.3 % [address] Nucleated RBC 0 /[address] Specimen Blood Performing Organization Address [facility] Phone Number [address] [place] [address] MAGNESIUM (12/05/2019 12:49 AM CDT) Pathologist Sig [facility] Magnesium 2.1 1.8 - 2.4 mg/dL [address] Specimen Blood Performing Organization Address [facility] Phone Number [address] [address] RENAL FUNCTION PANEL (12/05/2019 12:49 AM CDT) Pathologist Sig nature Glucose 131 (H) 70 - 100 mg/dL [address] BUN 19 6 - 22 mg/dL [address] Creatinine 1.47 (H) 0.80 - 1.[address] mg/dL BUN/Creatinine Ratio 12.9 10.0 - 25.[address] Sodium 141 135 - 145 meq/L [address] Potassium 4.1 3.5 - 5.3 meq/L [address] Chloride 107 99 - 110 meq/L [address] CO2 22 20 - 29 meq/L [address] Anion Gap with K 16 6 - 20 meq/L [address] Calcium 9.2 8.5 - 10.[address] mg/dL Phosphorus 3.4 2.5 - 4.5 mg/dL [address] Albumin 4.0 3.5 - 5.0 g/dL [address] Age [address] eGFR Non- 47 (L) >=[address] Haitian mL/min/1.73m2 eGFR 57 (L) >=[address] mL/min/1.73m2 Specimen Blood Performing Organization Address City/State/Zipcode Phone Number [place] [address] [facility] [address] [place] [address] LIPID PANEL (12/05/2019 12:49 AM CDT) Pathologist Sig nature Cholesterol 147 100 - 200 mg/dL [facility] Triglyceride 102 50 - 150 mg/dL [facility] HDL 53 40 - 80 mg/dL [facility] LDL 74 0 - 129 mg/dL [facility] Specimen Blood Performing Organization Address [facility] Phone Number [facility] [address] [place] [address] GLYCATED HEMOGLOBIN (12/05/2019 12:49 AM CDT) Pathologist Sig nature Hgb A1C 6.0 (H) <5.7 % [facility] Estimated Average 126 mg/dL [facility] Specimen Blood Narrative Performed At ADA Interpretive Guidelines [facility] When Using HbA1c for Diagnosis Prediabetes 5.7 - 6.4% Diabetes >= 6.5% When Using HbA1c for Monitoring a Person Known to Have Diabetes, < 7% is a reasonable goal for many nonpregna nt adults, < 7.5% should be considered in children and adolescents (<19 years) with type 1 diab etes. ADA Standards of Medical Care in Diabete s - 2019 Performing Organization Address [facility] Phone Number [facility] [address] [place] [address] [phone] TROPONIN I (12/05/2019 12:49 AM CDT) Pathologist Sig nature Troponin I 1.480 (H) 0.000 - 0.028 ng/mL [address] Specimen Blood Performing Organization Address [facility] Phone Number [place] [address] [facility] [address] [place] [address] documented in this encounter Visit Diagnoses Diagnosis NSTEMI (non-ST elevated myocardial infar ction) ([facility]) - Primary Acute myocardial infarction, subendocard ial infarction, episode of care unspecified Coronary artery disease involving [place]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 Iron deficiency anemia secondary to bloo d loss (chronic) Atrial fibrillation with RVR ([facility]) Atrial fibrillation Leukocytosis Leukocytosis, unspecified Steroid-induced hyperglycemia Other abnormal glucose documented in this encounter Discharge Diagnoses Not on filedocumented in this encounter Administered Medications Medication Order MAR Action Action Date Dose Rate Site acetaminophen (TYLENOL) suppository 650 mg 650 mg, Rectal, Every six hours prn, Starting Monica 12/04 at 0001, Until Discontinued, fever > (indicate temp), 1 00.5 degrees F, Total dose of acetaminophen from all acetaminophen containing produc ts should not exceed 4 grams (4000 mg) per day. Use rectal suppository if patient not able to chaya e oral acetaminophen., acetaminophen (TYLENOL) tablet 650 mg 650 mg, Oral, Every six hours prn, Starting Monica 0 at 0001, Until Discontinued, fever > (indicate temp), 1 00.5 degrees F, Total dose of acetaminophen from all acetaminophen containing produc ts should not exceed 4 grams (4000 mg) per day., allopurinol (ZYLOPRIM) tablet 300 mg Given 12/08/2019 9:04 AM CDT 300 mg 300 mg, Oral, DAILY, First dose on Mon12/06/19 at 0900, Until Discontinued Given 12/07/2019 8:39 AM CDT 300 mg Given 12/06/2019 7:58 AM CDT 300 mg amLODIPine (NORVASC) tablet 10 mg Given 12/08/2019 9:04 AM CDT 10 mg 10 mg, Oral, DAILY, First dose on Monica 12/05/19 at 0900, Until Discontinued, Hold for SBP less than 90, Given 12/07/2019 8:39 AM CDT 10 mg Given 12/06/2019 7:57 AM CDT 10 mg aspirin chewable tablet 81 mg Given 12/08/2019 9:04 AM CDT 81 mg 81 mg, Oral, Daily, First dose on Mon12/07/19 at 0900, Until Discontinued, Post-Procedure (Cath) Given 12/07/2019 8:39 AM CDT 81 mg atorvaSTATin (LIPITOR) tablet 40 mg Given 12/08/2019 9:04 AM CDT 40 mg 40 mg, Oral, Daily, First dose on Monica 12/05/19 at 0010, Until Discontinued Given 12/07/2019 8:39 AM CDT 40 mg Given 12/06/2019 7:57 AM CDT 40 mg bisacodyl (DULCOLAX) suppository 10 mg 10 mg, Rectal, One time a day prn, Starting Monica 0 at 0001, Until Discontinued, constipation, Use SECOND for constipatio n. If patient cannot take oral medications, use first for constipation., clopidogrel (PLAVIX) tablet 75 mg Given 12/08/2019 9:04 AM CDT 75 mg 75 mg, Oral, Daily, First dose on Mon12/08/19 at 0900, Until Discontinued docusate sodium (THEREVAC-SB MINI;ENEMEE Z MINI) 283 MG enema 1 enema 1 enema, Rectal, One time a day prn, Starting Monica 12/04 at 0001, Until Discontinued, constipation, Use THIRD for constipation - if no BM 8 hours after ducolax suppository. If patient cannot take oral medic ations, use second for constipation., ferrous sulfate (65 mg FE per 325 mg tablet) Given 9:04 AM CDT 325 mg tablet 325 mg 325 mg, Oral, Every other day, First dose on Mon12/06/19 at 0900, Until Discontinued Given 12/06/2019 7:57 AM CDT 325 mg folic acid tablet 1 mg Given 12/08/2019 9:04 AM CDT 1 mg 1 mg, Oral, DAILY, First dose on Mon12/06/19 at 0900, Until Discontinued Given 12/07/2019 8:39 AM CDT 1 mg Given 12/06/2019 7:57 AM CDT 1 mg furosemide (LASIX) tablet 40 mg Given 12/08/2019 9:04 AM CDT 40 mg 40 mg, Oral, Daily, First dose on Mon12/08/19 at 0900, Until Discontinued hEParin 100 units/ mL injection for hepl ock FLUSH 500 Units, IV, Daily, First dose on Mon12/09/19 at 0900, Until Discontinued, 5 mL, Flush PORT with 20 mL sodium chloride 0.9% followed by 500 units (100 units/mL) heparin monthly when not accessed Heparin flush is fo r ports only., hEParin 100 units/ mL injection for Given 12/08/2019 2:16 PM CD T 500 Units heplock FLUSH 500 Units, IV, As often as necessary prn, Starting Milnor 12/08/19 at 1122, Until Discontinued, other (Specify), port maintanence, 5 mL, Flush PORT with 20 mL sodium chloride 0.9% followed by 500 units (100 units/mL) heparin after each use. Heparin flush is for ports only., hydrALAZINE (APRESOLINE) injection solut ion 10 mg 10 mg, IV, Every six hours prn, Starting Mon12/06/19 at 1234, Until Discontinued, specified parameter, to keep SBP less th an 150 mmHg, 0.5 mL, Repeat in 20 minutes if needed. If not successful after two d oses, contact the interventional cardiology team., levothyroxine tablet 50 mcg Given 12/08/2019 6:14 AM CDT 50 mcg 50 mcg, Oral, One time a day on an empty stomach, First dose on Mon12/05/19 at 0900, Until Discontinued Given 12/07/2019 5:30 AM CDT 50 mcg Given 12/06/2019 6:02 AM CDT 50 mcg metoclopramide (REGLAN) inj soln 5 mg 5 mg, IV, Every six hours prn, Starting Mon12/04/19 at 2254, Until Discontinued, nausea, vomiting, 1 mL, Use SECOND. If ineffective and ondansetron used, call physician for alternative If preference is to further dilute for IV administration: First draw up patient-specific dose, then dilute to 10 mL with 0.9% sodium chloride., metoprolol succinate (TOPROL XL) SR tablet Given 12/08/2019 9:0 4 AM CDT 50 mg (24 hr) 50 mg 50 mg, Oral, Daily, First dose on Mon12/05/19 at 0900, Until Discontinued, Tablet may be broken in half, but should not be crushed or chewed., Given 12/07/2019 8:39 AM CDT 50 mg Given 12/06/2019 7:57 AM CDT 50 mg mirtazapine (REMERON) tablet 15 mg Given 12/07/2019 8:15 PM CDT 15 mg 15 mg, Oral, Bedtime, First dose on Mon12/05/19 at 2100, Until Discontinued Given 12/06/2019 8:05 PM CDT 15 mg Given 12/05/2019 9:12 PM CDT 15 mg nitroglycerin (NITROSTAT) sublingual tab let 0.4 mg 0.4 mg, Sublingual, Every five minutes prn, Starting F 12/06/19 at 1234, Until Discontinued, chest pain, At onset of ch est pain, dissolve one tablet under tongue. May repeat every 5 minutes for 3 doses. Do not crush o r chew., ondansetron (ZOFRAN ODT) dispersible tab let 4 mg 4 mg, Oral, Every four hours prn, Starti ng Monica 12/05/19 at 0001, Until Discontinued, nausea, vomiting, Use FIRST. If ineffect laina after 30 minutes use ondansetron IV, ondansetron (ZOFRAN) injection solution 4 mg 4 mg, IV, Every four hours prn, Starting Monica 12/05/19 at 0001, Until Discontinued, nausea, vomiting, 2 mL, Use SECOND. If i neffective after 30 minutes and ondansetron ODT used, call physician for alternative . If preference is to further dilute for IV administration: First draw up patient-sp ecific dose, then dilute to 10 mL with 0.9% sodium chloride., senna-docusate sodium (SENOKOT-S;PERICOL MIYA) tablet 2 tablet 2 tablet, Oral, Two times a day prn, Starting Monica 12/04 at 0001, Until Discontinued, constipation, Use FIRST fo r constipation unless patient cannot take oral medications., sodium chloride 0.9% flush (adult) 10 mL Given 12/08/2019 9:10 AM CDT 10 mL 10 mL, IV, Two times a day and prn, First dose on Monica 12/05/19 at 0900, Until Discontinued, 10 mL, Flush IV line as scheduled and as often as necessary before and after meds., Given 12/07/2019 8:15 PM CDT 10 mL Given 12/07/2019 8:50 AM CDT 10 mL sodium chloride 0.9% prefilled 10 mL syr shani (Materials Management Item) 20 mL 20 mL, IV, Daily, First dose on 12/09/19 at 0900, U ntil Discontinued, 20 mL, Flush PORT with 20 mL sodium chloride 0.9% followed by 500 units (100 units/mL) heparin monthly when not accessed, sodium chloride 0.9% prefilled 10 mL syringe Given 2:16 PM CDT 20 mL (Materials Management Item) 20 mL 20 mL, IV, As often as necessary prn, Starting 12/08/19 at 1122, Until Discontinued, other (Specify), Port Maintanence, 20 mL, Flush PORT with 20 mL sodium chloride 0.9% followed by 500 units (100 units/mL) heparin after each use., tamsulosin (FLOMAX) capsule 0.4 mg Given 12/08/2019 9:04 AM CDT 0.4 mg 0.4 mg, Oral, Daily, First dose on Monica 12/05/19 at 0900, Until Discontinued, Swallow cap whole. Do not crush, chew or open., Given 12/07/2019 8:39 AM CDT 0.4 mg Given 12/06/2019 7:57 AM CDT 0.4 mg Medication Order MAR Action Action Date Dose Rate Site aspirin chewable tablet 243 mg Given 12/06/2019 9:18 AM CDT 243 mg 243 mg, Oral, One time, 1 dose, Mon12/06/19 at 0955, Prep Orders (Cath) if inpatient - floor RN to release, Patient to receive 325 mg aspirin prior to procedure If patient currently taking aspirin at home and has taken their dose today prior to procedure: administer aspirin dosage so that total amount prior to procedure equals 325 mg, aspirin enteric coated tablet 81 mg Given 12/06/2019 7:57 AM CDT 81 mg 81 mg, Oral, Daily, First dose on Monica 12/05/19 at 0900, Until Discontinued, Tablet should be swallowed whole and not be divided, crushed or chewed., Given 12/05/2019 10:34 AM CDT 81 mg clopidogrel (PLAVIX) tablet 300 mg Given 12/07/2019 2:23 PM CDT 300 mg 300 mg, Oral, One time, 1 dose, 12/07/19 at 1350 fentaNYL 100 mcg/2 mL preservative free Given 12/06/2019 11:46 A M CDT 50 mcg injection solution 25-300 mcg 25-300 mcg, IV, PRN per parameter, Starting Mon12/06/19 at 0856, Until Mon12/06/19 at 1243, other (Specify), sedation for cardiac catheterization, 6 mL, Pre-Procedure (Cath), procedural area to release, For sedation under direction provider privileged to perform sedation. Do not give on the floor., furosemide (LASIX) injection solution 40 mg Given 12/06/2019 6:26 PM CDT 40 mg 40 mg, IV, One time, 1 dose, 12/06/19 at 1700, 4 mL, If preference is to further dilute for IV administration: First draw up patient-specific dose, then dilute to 10 mL with 0.9% sodium chloride. Administer SLOW IV push., furosemide (LASIX) tablet 40 mg Given 12/07/2019 10:18 AM CDT 40 mg 40 mg, Oral, Daily, First dose on 12/07/19 at 0900, Until Discontinued, Hold for SBP less than 100, hEParin (50 units/mL) in Rate Change 12/06/2019 3:50 AM 15 Units/ kg/hr 39.5 mL/hr D5W premixed IV solution CDT (STANDARD-weight based) 0-50 Units/kg/hr 131.5 kg (0-131.5 mL/hr), IV, at 0-131.5 mL/hr, Titrate, Starting Monica 12/05/19 at 0110, Until Mon12/06/19 at 1448, 500 mL, Start initial infusion at 15 units/kg/hr. Notify physician if initial infusion exceeds 1,500 units/hr. Adjust heparin infusion based on sliding scale: * aPTT less than 60 sec ------ Give 70 units/kg IV bolus and add 4 units/kg/hr to current rate * aPTT 60-69.9 sec Give 35 units/kg IV bolus and add 2 units/kg/hr to current rate * aPTT 70-120.9 sec No change (therapeutic) * aPTT 121-135.9 sec Subtract 2 units/kg/hr from current rate * aPTT 136-149.9 sec --------- Hold heparin for 1 hour and subtract 3 units/kg/hr from current rate * aPTT 150 sec or greater - Redraw STAT aPTT and hold heparin. Draw hourly aPTT using routine specified time until less than 150 sec, then restart heparin infusion at 3 units/kg/hr less than the previous rate, give NO BOLUS and resume every 6 hour aPTT. AFTER PROCEDURE: When restarting infusion after it's been held for a procedure, restart infusion at "starting" dose of 15 units/kg/hr and follow titration orders. IF infusion was running at less than 15 units/kg/hr prior to procedure, restart at that rate and follow titration orders., New Bag 12/06/2019 1:28 AM CDT 17 Units/kg/hr 44.7 mL/hr Rate Verify 12/05/2019 8:35 PM CDT 17 Units/kg/hr 44.7 mL/hr hEParin (50 units/mL) in D5W New Bag 12/06/2019 3:14 PM 15 Un its/kg/hr 39.6 mL/hr premixed IV solution CDT (STANDARD-weight based) 0-50 Units/kg/hr 132 kg (0-132 mL/hr), IV, at 0-132 mL/hr, Titrate, Starting Mon12/06/19 at 1515, Until Mon12/06/19 at 1557, 500 mL, Start initial infusion at 15 units/kg/hr. Notify physician if initial infusion exceeds 1,500 units/hr. Adjust heparin infusion based on sliding scale: * aPTT less than 60 sec ------ Give 70 units/kg IV bolus and add 4 units/kg/hr to current rate * aPTT 60-69.9 sec Give 35 units/kg IV bolus and add 2 units/kg/hr to current rate * aPTT 70-120.9 sec No change (therapeutic) * aPTT 121-135.9 sec Subtract 2 units/kg/hr from current rate * aPTT 136-149.9 sec --------- Hold heparin for 1 hour and subtract 3 units/kg/hr from current rate * aPTT 150 sec or greater - Redraw STAT aPTT and hold heparin. Draw hourly aPTT using routine specified time until less than 150 sec, then restart heparin infusion at 3 units/kg/hr less than the previous rate, give NO BOLUS and resume every 6 hour aPTT. AFTER PROCEDURE: When restarting infusion after it's been held for a procedure, restart infusion at "starting" dose of 15 units/kg/hr and follow titration orders. IF infusion was running at less than 15 units/kg/hr prior to procedure, restart at that rate and follow titration orders., heparin (porcine) (5000 units/1 mL) IV Given 0 12:11 PM CDT 4,600 Units dose 4,600 Units 4,600 Units (rounded from 4,602.5 Units = 35 Units/kg 131.5 kg), IV, PRN per parameter, Starting Monica 12/05/19 at 0005, Until Mon12/06/19 at 1448, other (Specify), * aPTT 60 to 69.9 seconds - Give 35 units/kg IV bolus and add 2 units/kg/hr to current rate of infusion, 1 mL, Supplemental bolus doses based on aPTT: * aPTT less than 60 seconds - Give 70 units/kg IV bolus and add 4 units/kg/hr to current rate of infusion. * aPTT 60 to 69.9 seconds - Give 35 units/kg IV bolus and add 2 units/kg/hr to current rate of infusion. Round to the nearest 100 units up to a maximum bolus of heparin 7500 units. , heparin (porcine) injection solution Given 12/06/2019 12:44 PM C DT 4,000 Units 0-12,000 Units 0-12,000 Units, IV, Administer in Cardiac Piping Blocker, 1 dose, Mon12/06/19 at 1215, 12 mL, Under the direction of the provider in CCL. Do not give on the floor., Given 12/06/2019 12:14 PM CDT 8,000 Units iohexol (OMNIPAQUE) 350 mg/mL solution 7 5 mL Given 12/06/2019 12:41 PM CDT 75 mL 75 mL, Intra-arterial, One time, 1 dose, Mon12/06/19 at 1245, 100 mL lidocaine PF (XYLOCAINE-MPF) 1 % preservative Given 11:54 AM CDT 18 mL free injection solution 0-40 mL 0-40 mL, Subcutaneous, Administer in Cardiac Piping Blocker, 1 dose, Mon12/06/19 at 1050, 40 mL, Given by provider in CCL. Do not give on the floor., midazolam (VERSED) injection solution 0.5-10 Given 0 11:46 AM CDT 2 mg mg 0.5-10 mg, IV, PRN per parameter, Starting Mon12/06/19 at 0856, Until Mon12/06/19 at 1243, other (Specify), sedation for cardiac catheterization, 10 mL, Pre-Procedure (Cath), procedural area to release, For sedation under direction provider privileged to perform sedation Do not give on the floor, nitroglycerin (100 mcg/mL) in NS Given 12/06/2019 12:18 PM CDT 2 mL 0-6 mL (0-600 mcg), Intra-arterial, Administer in Cardiac Piping Blocker, 1 dose, Mon12/06/19 at 1220, 10 mL, Given by provider in CCL. Do not give on the floor., ticagrelor (BRILINTA) tablet 0-180 mg Given 12/06/2019 12:44 PM CDT 180 mg 0-180 mg, Oral, Administer in Cardiac Piping Blocker, 1 dose, Mon12/06/19 at 1230, Under the direction of the provider in CCL. Do not give on the floor., ticagrelor (BRILINTA) tablet 90 mg Given 12/07/2019 8:39 AM CDT 90 mg 90 mg, Oral, Two times a day, 730 doses, First dose on Mon12/06/19 at 2100, Last dose on Mon12/05/20 at 0900, Post-Procedure (Cath), If medication is crushed, must be mixed with water for administration., Given 12/06/2019 7:59 PM CDT 90 mg documented in this encounter
== END 2019-12-04 21:45 ==
LOC: FB.ED 19:53
DX: I48.91 Unspecified atrial fibrillation (principal); I21.9 Acute myocardial infarction, unspecified; E78.00 Pure hypercholesterolemia, unspecified; I10 Essential (primary) hypertension; K21.9 Gastro-esophageal reflux disease without esophagitis; F41.9 Anxiety disorder, unspecified; E03.9 Hypothyroidism, unspecified; E66.9 Obesity, unspecified; Z68.39 Body mass index [BMI] 39.0-39.9, adult; Z87.891 Personal history of nicotine dependence
CPT/HCPCS: 36556; 80053; 81001; 83735; 84443; 84484; 85025; 85610; 85730; 93005; 96365; 96375; 96376; 99285; 99285-25; A9270-GY; J1644; J3490

== ENCOUNTER 2019-12-13 15:05 | Emergency (ER) | payer MEDICARE ==
[2019-12-13 15:21] VITALS: BP 145/81; PULSE 87
--- NOTE | 2019-12-13 15:36 | EDM.PDOC ---
ED HPI GENERAL MEDICAL PROBLEM - General Chief Complaint: Respiratory Problem Stated Complaint: SOB Time Seen by Provider: 12/13/19 15:20 Source of Information: Reports: Patient, Old Records History Limitations: Reports: No Limitations - History of Present Illness INITIAL COMMENTS - FREE TEXT/NARRATIVE: Semaj returns to [facility] ED with sxs of dyspnea on exertion. He was discharged from [facility] on December 07 following angioplasty and stenting x 1 nfor nonSTEMI IN on December 03. He had experienced some mild dyspnea on exertion when discharged, but just assumed sxs would improve during the week. This morning, sxs seemed worse when getting up for the day. There was no associated chest pain, cough, wheezing, palpitations, nausea or lt headness. He called providers who suggested evaluation in the ED. Upon arrival, he is currently asx, but does tire from sitting up on the [place]erney. His VSS, and in NSR. An initial EKG notes NSR without any acute changes. - Related Data Allergies Allergy/AdvReac Type Severity Reaction Status Date / Time No Known Allergies Allergy Verified 12/04/19 20:30 Home Meds: Home Meds Furosemide 40 mg PO DAILY 06/27/14 [History] Mirtazapine [Remeron] 15 mg PO BEDTIME 06/27/14 [History] amLODIPine Besylate [Amlodipine Besylate] 10 mg PO DAILY 06/27/14 [History] Levothyroxine 50 mcg PO DAILY 08/16/19 [History] Lutein 6 mg PO DAILY 08/16/19 [History] Tamsulosin HCl 0.4 mg PO DAILY 08/16/19 [History] allopurinoL [Zyloprim] 300 mg PO DAILY 08/16/19 [History] Aspirin 81 mg PO DAILY 12/13/19 [History] Clopidogrel [Plavix] 75 mg PO DAILY 12/13/19 [History] Ferrous Sulfate 325 mg PO DAILY 12/13/19 [History] Folic Acid 1 mg PO DAILY 12/13/19 [History] Metoprolol Succinate [Toprol Xl] 50 mg PO DAILY 12/13/19 [History] Nitroglycerin [Nitrostat] 0.4 mg SL DAILY 12/13/19 [History] Prochlorperazine [Compazine] 10 mg PO Q6H 12/13/19 [History] Vitamin B Complex 1 each PO DAILY 12/13/19 [History] atorvaSTATin [Lipitor] 40 mg PO BEDTIME 12/13/19 [History] dexAMETHasone [Dexamethasone] 4 mg PO DAILY 12/13/19 [History] Past Medical History HEENT History: Reports: Cataract Other HEENT History: NUCLEAR SCLEROSIS OF BOTH EYES Cardiovascular History: Reports: Blood Clots/VTE/DVT, High Cholesterol, Hypertension Other Cardiovascular History: SUPRAVENTRICULAR PREMATURE BEATS Respiratory History: Reports: None Gastrointestinal History: Reports: Colon Polyp, Diverticulosis, GERD Genitourinary History: Reports: Renal Disease, Other (See Below) Other Genitourinary History: pT REPORTS right kidney functioning well/ has been on dialysis before; LEFT KIDNEY REPORTED NO FUNCTION Other Musculoskeletal History: MENISCUS TEAR LEFT KNEE Neurological History: Reports: None Psychiatric History: Reports: Anxiety Endocrine/Metabolic History: Reports: Hypothyroidism, Obesity/BMI 30+ Other Endocrine/Metabolic History: HYPERURICEMIA Hematologic History: Reports: Anemia Immunologic History: Reports: None Oncologic (Cancer) History: Reports: None Dermatologic History: Reports: None - Infectious Disease History Infectious Disease History: Reports: Influenza - Past Surgical History Head Surgeries/Procedures: Reports: None HEENT Surgical History: Reports: Cataract Surgery, Naso-Sinus Surgery, Tonsillectomy Other HEENT Surgeries/Procedures: tonsilectomy, nasosinus surgery GI Surgical History: Reports: Colonoscopy Other GI Surgeries/Procedures: SIGMOIDOSCOPY Male Surgical History: Reports: Vasectomy Other Male Surgeries/Procedures: CYSTOURETHROSCOPY, RENAL SCAN Musculoskeletal Surgical History: Reports: Arthroscopic Procedure Other Musculoskeletal Surgeries/Procedures:: TENDON SHEATH INCISION Social & Family History - Tobacco Use Smoking Status *Q: Never Smoker - Caffeine Use Caffeine Use: Reports: Coffee - Recreational Drug Use Recreational Drug Use: No ED ROS GENERAL - Review of Systems Review Of Systems: See Below Constitutional: Reports: Malaise, Weakness, Fatigue HEENT: Reports: No Symptoms Respiratory: Reports: No Symptoms Cardiovascular: Reports: Dyspnea on Exertion Endocrine: Reports: No Symptoms GI/Abdominal: Reports: No Symptoms : Reports: No Symptoms Musculoskeletal: Reports: No Symptoms Skin: Reports: No Symptoms Neurological: Reports: No Symptoms Psychiatric: Reports: No Symptoms Hematologic/Lymphatic: Reports: No Symptoms Immunologic: Reports: No Symptoms ED EXAM, GENERAL - Physical Exam Exam: See Below Exam Limited By: No Limitations General Appearance: Alert, WD/WN, No Apparent Distress, Obese Eye Exam: Bilateral Eye: EOMI, Normal Inspection, PERRL Ears: Normal External Exam Nose: Normal Inspection, Normal Mucosa, No Blood Throat/Mouth: Normal Inspection, Normal Lips, Normal Oropharynx, Normal Voice, No Airway Compromise Head: Normocephalic Neck: Normal Inspection, Supple, Non-Tender Respiratory/Chest: No Respiratory Distress, Lungs Clear, Normal Breath Sounds, No Accessory Muscle Use, Chest Non-Tender Cardiovascular: Normal Peripheral Pulses, Regular Rate, Rhythm, No Edema, No Gallop, No JVD, No Murmur GI/Abdominal: Normal Bowel Sounds, Soft, Non-Tender, No Organomegaly, No Distention, No Mass (Male) Exam: Normal Inspection Rectal (Males) Exam: Deferred Back Exam: Normal Inspection Extremities: Normal Inspection Neurological: Alert, Oriented, CN II-XII Intact, Normal Cognition, Normal Gait, No Motor/Sensory Deficits Psychiatric: Normal Affect, Normal Mood Skin Exam: Warm, Dry, Intact, Normal Color Lymphatic: No Adenopathy Course - Vital Signs Text/Narrative:: Following assessment, screening lab work and chest x ray were performed, noting: baseline CBC and CMP, Troponin 37.1, d dimer 15.04; BNP 1970; chest x ray noting no cardiac enlargement or signs of CHF; subsequent Chest CT Angio confirmed large saddle embolus with additional distal involvement consistent with PE. Case was discussed with Hospitalist at [facility], and he will be returned for further treatment. Last Recorded V/S: Last Vital Signs Temp 36.6 C 12/13/19 15:05 Pulse 87 12/13/19 15:05 Resp 13 12/13/19 15:05 BP 145/81 H 12/13/19 15:05 Pulse Ox 95 12/13/19 15:05 - Orders/Labs/Meds Orders: Active Orders 24 hr Category Date Time Status EKG Documentation Completion [RC] ASDIRECTED Care 12/13/19 15:29 Active Ang Chest [CT] Stat Exams 12/13/19 16:56 Taken Sodium Chloride 0.9% [Saline Flush] Med 12/13/19 16:35 Active 10 ml FLUSH ASDIRECTED PRN Peripheral IV Insertion Adult [OM.PC] Routine Oth 12/13/19 16:35 Ordered EKG 12 Lead [EK] Routine Ther 12/13/19 15:28 Ordered Medication Orders Sodium Chloride (Saline Flush) 10 ml FLUSH ASDIRECTED PRN PRN Reason: Keep Vein Open Last Admin: 12/13/19 17:36 Dose: 10 ml Documented by: ALEXYS Labs: Laboratory Tests 12/13/19 12/13/19 12/13/19 Range/Units 15:45 15:45 15:45 WBC 5.9 (4.5-12.0) X10-3/uL RBC 5.03 (4.30-5.75) x10(6)uL Hgb 12.7 L (13.5-17.8) g/dL Hct 40.7 (30.0-51.3) % MCV 80.9 (80-96) fL MCH 25.3 L (27.7-33.6) pg MCHC 31.3 L (32.2-35.4) g/dL RDW 16.5 H (11.5-15.5) % Plt Count 292 (125-369) X10(3)uL MPV 8.2 (7.4-10.4) fL Neut % (Auto) 71.2 (46-82) % Lymph % (Auto) 13.5 (13-37) % Rooks % (Auto) 13.2 H (4-12) % Eos % (Auto) 1 (1.0-5.0) % Baso % (Auto) 1 (0-2) % Neut # (Auto) 4.2 (1.6-8.3) # Lymph # (Auto) 0.8 (0.6-5.0) # Rooks # (Auto) 0.8 (0.0-1.3) # Eos # (Auto) 0.1 (0.0-0.8) # Baso # (Auto) 0.0 (0.0-0.2) # D-Dimer, Quantitative 15.04 H (0.0-0.59) mg/LFEU Sodium 141 (135-145) mmol/L Potassium 4.3 (3.5-5.3) mmol/L Chloride 104 (100-110) mmol/L Carbon Dioxide 26 (21-32) mmol/L BUN 20 H (7-18) mg/dL Creatinine 1.6 H (0.70-1.30) mg/dL Est Cr Clr Drug Dosing 47.86 mL/min Estimated GFR (MDRD) 43 L (>60) BUN/Creatinine Ratio 12.5 (9-20) Glucose 120 H (80-116) mg/dL Calcium 9.2 (8.6-10.2) mg/dL Total Bilirubin 0.4 (0.1-1.3) mg/dL AST 18 D (5-25) IU/L ALT 23 D (12-36) U/L Alkaline Phosphatase 111 (56-112) IU/L Troponin I (4.0-60.3) pg/mL NT-Pro-B Natriuret Pep (<=125) pg/mL Total Protein 7.7 (6.0-8.0) g/dL Albumin 3.4 (3.2-4.6) g/dL Globulin 4.3 g/dL Albumin/Globulin Ratio 0.8 // Range/Units 15:45 WBC (4.5-12.0) X10-3/uL RBC (4.30-5.75) x10(6)uL Hgb (13.5-17.8) g/dL Hct (30.0-51.3) % MCV (80-96) fL MCH (27.7-33.6) pg MCHC (32.2-35.4) g/dL RDW (11.5-15.5) % Plt Count (125-369) X10(3)uL MPV (7.4-10.4) fL Neut % (Auto) (46-82) % Lymph % (Auto) (13-37) % Rooks % (Auto) (4-12) % Eos % (Auto) (1.0-5.0) % Baso % (Auto) (0-2) % Neut # (Auto) (1.6-8.3) # Lymph # (Auto) (0.6-5.0) # Rooks # (Auto) (0.0-1.3) # Eos # (Auto) (0.0-0.8) # Baso # (Auto) (0.0-0.2) # D-Dimer, Quantitative (0.0-0.59) mg/LFEU Sodium (135-145) mmol/L Potassium (3.5-5.3) mmol/L Chloride (100-110) mmol/L Carbon Dioxide (21-32) mmol/L BUN (7-18) mg/dL Creatinine (0.70-1.30) mg/dL Est Cr Clr Drug Dosing mL/min Estimated GFR (MDRD) (>60) BUN/Creatinine Ratio (9-20) Glucose (80-116) mg/dL Calcium (8.6-10.2) mg/dL Total Bilirubin (0.1-1.3) mg/dL AST (5-25) IU/L ALT (12-36) U/L Alkaline Phosphatase (56-112) IU/L Troponin I 37.1 (4.0-60.3) pg/mL NT-Pro-B Natriuret Pep 1970 H* (<=125) pg/mL Total Protein (6.0-8.0) g/dL Albumin (3.2-4.6) g/dL Globulin g/dL Albumin/Globulin Ratio Meds: Medications Generic Name Dose Route Start Last Admin Trade Name Freq PRN Reason Stop Dose Admin Sodium Chloride 10 ml 12/13/19 16:35 12/13/19 17:36 Saline Flush FLUSH 10 ml ASDIRECTED PRN Administration Keep Vein Open Discontinued Medications Generic Name Dose Route Start Last Admin Trade Name Freq PRN Reason Stop Dose Admin Heparin Sodium (Porcine) 5,000 units 12/13/19 17:30 12/13/19 17:35 Heparin Sodium IVPUSH 12/13/19 17:31 5,000 units ONETIME ONE Administration Iopamidol 100 ml 12/13/19 16:57 12/13/19 17:17 Isovue-370 (76%) IV 12/13/19 16:58 90 ml . DIRECTED ONE Administration Departure - Departure Time of Disposition: 17:46 Disposition: DC/Tfer to Other 70 Reason for Transfer *Q: Primary PCI Indicated Condition: Fair Clinical Impression: Pulmonary embolism Qualifiers: Pulmonary embolism type: saddle Chronicity: acute Acute cor pulmonale presence: unspecified Qualified Code(s): I26.92 - Saddle embolus of pulmonary artery without acute cor pulmonale Forms: ED Department Discharge Sepsis Event Note (ED) - Evaluation Sepsis Screening Result: No Definite Risk - Focused Exam Vital Signs: Vital Signs Temp Pulse Resp BP Pulse Ox 12/13/19 15:05 36.6 C 87 13 145/81 H 95 - Problem List & Annotations (1) Pulmonary embolism SNOMED Code(s): 59442532 Code(s): I26.99 - OTHER PULMONARY EMBOLISM WITHOUT ACUTE COR PULMONALE Status: Acute Current Visit: Yes Annotation/Comment:: Transfer to [facility] with Heparing drip Qualifiers: Pulmonary embolism type: saddle Chronicity: acute Acute cor pulmonale presence: unspecified Qualified Code(s): I26.92 - Saddle embolus of pulmonary artery without acute cor pulmonale - Problem List Review Problem List Initiated/Reviewed/Updated: Yes - My Orders Last 24 Hours: My Active Orders 12/13/19 15:28 EKG 12 Lead [EK] Routine 12/13/19 15:29 EKG Documentation Completion [RC] ASDIRECTED 12/13/19 16:35 Sodium Chloride 0.9% [Saline Flush] 10 ml FLUSH ASDIRECTED PRN Peripheral IV Insertion Adult [OM.PC] Routine 12/13/19 16:56 Ang Chest [CT] Stat - Assessment/Plan Last 24 Hours: My Active Orders 12/13/19 15:28 EKG 12 Lead [EK] Routine 12/13/19 15:29 EKG Documentation Completion [RC] ASDIRECTED 12/13/19 16:35 Sodium Chloride 0.9% [Saline Flush] 10 ml FLUSH ASDIRECTED PRN Peripheral IV Insertion Adult [OM.PC] Routine 12/13/19 16:56 Ang Chest [CT] Stat Plan: Follow up with PCP upon return.
[2019-12-13] MEDS ORDERED: Sodium Chloride 0.9% 10 ML Syringe FLUSH PRN (16:35)
[2019-12-13] MEDS ORDERED: Iopamidol 755 Mg/ML 100 ML Bottle IV ONE (16:57)
--- NOTE | 2019-12-13 17:15 | CR ---
INDICATION: Dyspnea on exertion. CHEST, ONE VIEW: A single AP upright portable view of the chest was obtained. Detail was limited due to the portable technique and patient body habitus apparently. A Port-A-Cath is now noted in place, which was not present on 04/27/10 examination. Heart size does not appear grossly enlarged, but did appear somewhat prominent, increased by the AP positioning. The aorta is tortuous. No consolidating pneumonia or effusion was seen. The lungs appear to be somewhat hyperaerated. IMPRESSION: No definite acute process - no definite CHF - suggest in-department PA and lateral views of the chest when clinically possible for further evaluation. MTDD
--- NOTE | 2019-12-13 17:18 | CR ---
INDICATION: Short of breath. CHEST, TWO VIEWS: PA and lateral views of the chest were obtained with 2 PA views and revealed somewhat flattened diaphragm leaves with prominent AP diameter and hyperaeration suggesting COPD. No definite evidence of CHF is seen. The heart did not appear grossly enlarged. Port-A-Cath is noted in place. Moderate to moderately severe bridging hyperostotic changes noted in the mid to lower thoracic spine off vertebral bodies. No consolidating pneumonia or effusion was seen. IMPRESSION: 1. No definite acute process. 2. Possible COPD. 3. ASD aorta. 4. DJD spine. Report was given in person to Dr. Galeano at the time of the examination completion. [facility]
[2019-12-13] MEDS ORDERED: Heparin Sodium 5,000 Units/ML Vial IVPUSH ONE (17:30)
[2019-12-13] MEDS ORDERED: Heparin Sodium/0.45% NaCl 25,000 UNITS/500 ML BAG IV SCH (18:00)
--- NOTE | 2019-12-13 18:14 | CT ---
INDICATION: Dyspnea on exertion. Elevated D-dimer. Question PE. COMPUTERIZED TOMOGRAPHY ANGIOGRAPHY OF THE CHEST WITH CONTRAST: Spiral 1.25 mm axial sections were obtained through the chest with 90 mL Isovue-370 at 3.5 mL/second with sagittal and coronal reconstructions 12/13/19 and compared with chest x-rays of the same date. Total exam DLP was 1003.28 mGy-cm. The mediastinum showed no evidence of a mass lesion with a mild degree of lymphadenopathy of questionable etiology. Calcifications are noted in coronary arteries. However, the heart was not enlarged. No pericardial effusion was seen. There is some minimal calcification in the aorta. There is a low-density lesion in the anterior aspect of the spleen on axial image 378 of series 2 which could represent a cyst, but may represent a small solid lesion. Detail was not optimal due to timing for pulmonary angiography rather than the abdomen. This does not appear to be changed compared with a CT of the abdomen dated 08/16/19. The upper abdomen was otherwise unremarkable. There are some minimal subpleural changes in the right lower lobe near the lung base, middle lobe anteriorly just above the lung base and also laterally, which may be related to fibrotic changes or possibly the saddle emboli present in this patient. Bilateral saddle emboli are present and extend into 3rd vessels - 3rd order pulmonary arteries bilaterally. Complete obstruction of flow may be present in at least 1 of the pulmonary arteries extending into the left lower lobe with probable subsequent pulmonary infarction in that area - pleuroparenchymal change in that area - subpleural change may be on the basis of infarction in the left lower lobe. IMPRESSION: Fairly massive saddle emboli bilaterally with some vessels obstructed with likely development of pulmonary infarcts, at least 1 in the left lower lobe is suspected. Report was called to Dr. Galeano at 1724 hours. [facility]
== END 2019-12-13 18:58 | disposition other institution (70) ==
LOC: FB.ED 15:05
DX: I26.92 Saddle embolus of pulmonary artery without acute cor pulmonale (principal); E78.00 Pure hypercholesterolemia, unspecified; I10 Essential (primary) hypertension; F41.9 Anxiety disorder, unspecified; E03.9 Hypothyroidism, unspecified; E66.9 Obesity, unspecified; Z68.37 Body mass index [BMI] 37.0-37.9, adult; Z79.02 Long term (current) use of antithrombotics/antiplatelets; Z79.899 Other long term (current) drug therapy; Z79.82 Long term (current) use of aspirin
CPT/HCPCS: 36415; 71045; 71046; 71275; 80053; 83880; 84484; 85025; 85379; 93005; 96365; 96376; 99285; J1644; Q9967

== ENCOUNTER 2020-01-01 22:08 | Emergency (ER) | payer MEDICARE ==
[~2020-01-01 22:08] MED LIST changes: +LORazepam 2 MG/ML SDV IM ONE; -Lactated Ringers 1,000 ML IV SCH; -Sodium Chloride 0.9% 10 ML Syringe FLUSH PRN
[2020-01-01] MEDS ORDERED: Meclizine 25 MG Tab PO ONE (22:37)
[2020-01-01] MEDS: LORazepam 2 MG/ML SDV IVPUSH STA ×2 (22:38→22:45)
--- NOTE | 2020-01-01 23:16 | EDM.PDOC ---
ED HPI GENERAL MEDICAL PROBLEM - General Chief Complaint: General Stated Complaint: BLOOD PRESSURE Time Seen by Provider: 01/01/20 22:15 Source of Information: Reports: Patient History Limitations: Reports: No Limitations - History of Present Illness INITIAL COMMENTS - FREE TEXT/NARRATIVE: Patient presented to the ED because of a dizzy spell. He said he was on the couch when all of a sudden he felt dizzy and he couldn't focus. there is no headache, N/V. There is no slurring of speech, motor or sensory deficits. Back Pain Score (Numeric/FACES): 4 - Related Data Allergies Allergy/AdvReac Type Severity Reaction Status Date / Time No Known Allergies Allergy Verified 12/04/19 20:30 Home Meds: Home Meds Furosemide 40 mg PO DAILY 06/27/14 [History] Mirtazapine [Remeron] 15 mg PO BEDTIME 06/27/14 [History] amLODIPine Besylate [Amlodipine Besylate] 10 mg PO DAILY 06/27/14 [History] Levothyroxine 50 mcg PO DAILY 08/16/19 [History] Lutein 6 mg PO DAILY 08/16/19 [History] Tamsulosin HCl 0.4 mg PO DAILY 08/16/19 [History] allopurinoL [Zyloprim] 300 mg PO DAILY 08/16/19 [History] Aspirin 81 mg PO DAILY 12/13/19 [History] Clopidogrel [Plavix] 75 mg PO DAILY 12/13/19 [History] Ferrous Sulfate 325 mg PO DAILY 12/13/19 [History] Folic Acid 1 mg PO DAILY 12/13/19 [History] Metoprolol Succinate [Toprol Xl] 50 mg PO DAILY 12/13/19 [History] Nitroglycerin [Nitrostat] 0.4 mg SL DAILY 12/13/19 [History] Prochlorperazine [Compazine] 10 mg PO Q6H 12/13/19 [History] Vitamin B Complex 1 each PO DAILY 12/13/19 [History] atorvaSTATin [Lipitor] 40 mg PO BEDTIME 12/13/19 [History] dexAMETHasone [Dexamethasone] 4 mg PO DAILY 12/13/19 [History] Past Medical History HEENT History: Reports: Cataract Other HEENT History: NUCLEAR SCLEROSIS OF BOTH EYES Cardiovascular History: Reports: Blood Clots/VTE/DVT, High Cholesterol, Hypertension Other Cardiovascular History: SUPRAVENTRICULAR PREMATURE BEATS Respiratory History: Reports: None Gastrointestinal History: Reports: Colon Polyp, Diverticulosis, GERD Genitourinary History: Reports: Renal Disease, Other (See Below) Other Genitourinary History: pT REPORTS right kidney functioning well/ has been on dialysis before; LEFT KIDNEY REPORTED NO FUNCTION Other Musculoskeletal History: MENISCUS TEAR LEFT KNEE Neurological History: Reports: None Psychiatric History: Reports: Anxiety Endocrine/Metabolic History: Reports: Hypothyroidism, Obesity/BMI 30+ Other Endocrine/Metabolic History: HYPERURICEMIA Hematologic History: Reports: Anemia Immunologic History: Reports: None Oncologic (Cancer) History: Reports: None Other Oncologic History: began chemotherapy for colon cancer Dermatologic History: Reports: None - Infectious Disease History Infectious Disease History: Reports: Influenza - Past Surgical History Head Surgeries/Procedures: Reports: None HEENT Surgical History: Reports: Cataract Surgery, Naso-Sinus Surgery, Tonsillectomy Other HEENT Surgeries/Procedures: tonsilectomy, nasosinus surgery GI Surgical History: Reports: Colonoscopy Other GI Surgeries/Procedures: SIGMOIDOSCOPY Male Surgical History: Reports: Vasectomy Other Male Surgeries/Procedures: CYSTOURETHROSCOPY, RENAL SCAN Musculoskeletal Surgical History: Reports: Arthroscopic Procedure Other Musculoskeletal Surgeries/Procedures:: TENDON SHEATH INCISION Social & Family History - Family History Family Medical History: Noncontributory - Caffeine Use Caffeine Use: Reports: Coffee ED ROS GENERAL - Review of Systems Review Of Systems: See Below Constitutional: Reports: Weakness HEENT: Reports: No Symptoms Respiratory: Reports: No Symptoms Cardiovascular: Reports: No Symptoms Endocrine: Reports: No Symptoms GI/Abdominal: Reports: No Symptoms : Reports: No Symptoms Musculoskeletal: Reports: No Symptoms Skin: Reports: No Symptoms Neurological: Reports: Dizziness ED EXAM, GENERAL - Physical Exam Exam: See Below Exam Limited By: No Limitations General Appearance: Alert, No Apparent Distress Eye Exam: Bilateral Eye: PERRL Ears: Normal External Exam, Normal Canal Nose: Normal Inspection, Normal Mucosa, No Blood Throat/Mouth: Normal Inspection, Normal Lips, Normal Teeth Head: Atraumatic, Normocephalic Neck: Normal Inspection, Supple, Non-Tender, Full Range of Motion Respiratory/Chest: No Respiratory Distress, Lungs Clear, Normal Breath Sounds Cardiovascular: Normal Peripheral Pulses, Regular Rate, Rhythm, No Edema, No Gallop GI/Abdominal: Normal Bowel Sounds, Soft, Non-Tender, No Organomegaly Back Exam: Normal Inspection, Full Range of Motion Extremities: Normal Inspection, Normal Range of Motion, Non-Tender Neurological: Alert, Oriented, CN II-XII Intact, Normal Cognition, Normal Gait, No Motor/Sensory Deficits Psychiatric: Normal Affect, Normal Mood Skin Exam: Warm, Dry, Intact, Normal Color Course - Vital Signs Text/Narrative:: Labs/EKG/Headt CT was discussed with patient and verbalized full understanding Meclizine 25 mg po x1 Ativan 1 mg IM x1 Last Recorded V/S: Last Vital Signs Temp 36.6 C 01/01/20 22:12 Pulse 70 01/01/20 22:51 Resp 16 01/01/20 22:51 BP 162/89 H 01/01/20 22:51 Pulse Ox 96 01/01/20 22:51 - Orders/Labs/Meds Orders: Active Orders 24 hr Category Date Time Status EKG Documentation Completion [RC] ASDIRECTED Care 01/01/20 22:30 Active Head wo Cont [CT] Stat Exams 01/01/20 22:28 Taken EKG 12 Lead [EK] Routine Ther 01/01/20 22:30 Ordered Labs: Laboratory Tests 01/01/20 01/01/20 01/01/20 Range/Units 22:52 22:52 22:52 WBC 7.0 (4.5-12.0) X10-3/uL RBC 4.87 (4.30-5.75) x10(6)uL Hgb 12.3 L (13.5-17.8) g/dL Hct 39.6 (30.0-51.3) % MCV 81.4 (80-96) fL MCH 25.3 L (27.7-33.6) pg MCHC 31.1 L (32.2-35.4) g/dL RDW 18.5 H (11.5-15.5) % Plt Count 247 (125-369) X10(3)uL MPV 8.4 (7.4-10.4) fL Neut % (Auto) 71.5 (46-82) % Lymph % (Auto) 17.1 (13-37) % [place] % (Auto) 8.1 (4-12) % Eos % (Auto) 2 (1.0-5.0) % Baso % (Auto) 1 (0-2) % Neut # (Auto) 4.9 (1.6-8.3) # Lymph # (Auto) 1.2 (0.6-5.0) # [place] # (Auto) 0.6 (0.0-1.3) # Eos # (Auto) 0.2 (0.0-0.8) # Baso # (Auto) 0.1 (0.0-0.2) # Sodium 143 (135-145) mmol/L Potassium 4.0 (3.5-5.3) mmol/L Chloride 106 (100-110) mmol/L Carbon Dioxide 28 (21-32) mmol/L BUN 20 H (7-18) mg/dL Creatinine 1.4 H (0.70-1.30) mg/dL Est Cr Clr Drug Dosing TNP Estimated GFR (MDRD) 50 L (>60) BUN/Creatinine Ratio 14.3 (9-20) Glucose 110 (80-116) mg/dL Calcium 9.3 (8.6-10.2) mg/dL Total Bilirubin 0.4 (0.1-1.3) mg/dL AST 18 (5-25) IU/L ALT 23 (12-36) U/L Alkaline Phosphatase 103 (56-112) IU/L Troponin I 11.7 (4.0-60.3) pg/mL Total Protein 7.0 (6.0-8.0) g/dL Albumin 3.4 (3.2-4.6) g/dL Globulin 3.6 g/dL Albumin/Globulin Ratio 0.9 Meds: Medications Discontinued Medications Generic Name Dose Route Start Last Admin Trade Name Ester PRN Reason Stop Dose Admin Lorazepam 1 mg 01/01/20 22:38 01/01/20 22:45 Ativan IVPUSH 01/01/20 22:39 1 mg NOW STA Administration Meclizine HCl 25 mg 01/01/20 22:37 01/01/20 22:45 Antivert PO 01/01/20 22:38 25 mg ONETIME ONE Administration Departure - Departure Time of Disposition: 23:35 Disposition: Home, Self-Care 01 Condition: Good Clinical Impression: HTN (hypertension), Anxiety reaction - Discharge Information Referrals: Abundio Aguilar MD [Primary Care Provider] - Forms: ED Department Discharge Additional Instructions: Please read discharge instructions on hypertension and anxiety reaction Take tylenol 1000 mg every 8 hours as needed for pain Increase oral fluids Follow up as needed Sepsis Event Note (ED) - Evaluation Sepsis Screening Result: No Definite Risk - Focused Exam Vital Signs: Vital Signs Temp Pulse Resp BP Pulse Ox 01/01/20 22:51 70 16 162/89 H 96 01/01/20 22:12 36.6 C 77 18 167/71 H 99 - My Orders Last 24 Hours: My Active Orders 01/01/20 22:28 Head wo Cont [CT] Stat 01/01/20 22:30 EKG Documentation Completion [RC] ASDIRECTED EKG 12 Lead [EK] Routine - Assessment/Plan Last 24 Hours: My Active Orders 01/01/20 22:28 Head wo Cont [CT] Stat 01/01/20 22:30 EKG Documentation Completion [RC] ASDIRECTED EKG 12 Lead [EK] Routine
[2020-01-02 00:42] VITALS: BP 154/82; PULSE 72
== END 2020-01-01 23:50 | disposition home or self-care (01) ==
LOC: FB.ED 22:08
DX: I10 Essential (primary) hypertension (principal); F41.1 Generalized anxiety disorder; E78.00 Pure hypercholesterolemia, unspecified; E03.9 Hypothyroidism, unspecified; E66.9 Obesity, unspecified; Z79.82 Long term (current) use of aspirin
CPT/HCPCS: 36415; 70450; 80053; 84484; 85025; 93005; 96372; 99284-25; A9270-GY; J2060

== ENCOUNTER 2020-05-27 09:00 | Emergency (ER) | payer MEDICARE ==
[2020-05-27] MEDS ORDERED: Sodium Chloride 0.9% 10 ML Syringe FLUSH PRN (09:50)
[2020-05-27] MEDS ORDERED: Acetaminophen 500 MG Tab PO ONE (10:41)
[2020-05-27] MEDS ORDERED: Dexamethasone 4 MG/ML 5 ML MDV IVPUSH ONE (11:02)
[2020-05-27] MEDS ORDERED: Sodium Chloride 0.9% 1,000 ML IV SCH (11:15)
--- NOTE | 2020-05-27 11:19 | EDM.PDOC ---
ED HPI GENERAL MEDICAL PROBLEM - General Chief Complaint: Fever Stated Complaint: FEVER-COVID Time Seen by Provider: 05/27/20 09:05 Source of Information: Reports: Patient, Family History Limitations: Reports: No Limitations - History of Present Illness INITIAL COMMENTS - FREE TEXT/NARRATIVE: Patient presented to the ED because of productive cough,weakness and diarrhea which started 1 week ago and is progressively getting worse. Yesterday he started to have low grade fever,chills, body malaise and increasing dyspnea. He has a history of colon CA diagnosed in October 2019, had colectomy and started on chemo November 2019. His last chemotherapy was a week ago. - Related Data Allergies Allergy/AdvReac Type Severity Reaction Status Date / Time No Known Allergies Allergy Verified 05/27/20 09:10 Home Meds: Home Meds Furosemide 40 mg PO DAILY 06/27/14 [History] Mirtazapine [Remeron] 15 mg PO BEDTIME 06/27/14 [History] amLODIPine Besylate [Amlodipine Besylate] 10 mg PO DAILY 06/27/14 [History] Levothyroxine 50 mcg PO DAILY 08/16/19 [History] Lutein 6 mg PO DAILY 08/16/19 [History] Tamsulosin HCl 0.4 mg PO DAILY 08/16/19 [History] allopurinoL [Zyloprim] 300 mg PO DAILY 08/16/19 [History] Aspirin 81 mg PO DAILY 12/13/19 [History] Clopidogrel [Plavix] 75 mg PO DAILY 12/13/19 [History] Ferrous Sulfate 325 mg PO DAILY 12/13/19 [History] Folic Acid 1 mg PO DAILY 12/13/19 [History] Metoprolol Succinate [Toprol Xl] 50 mg PO DAILY 12/13/19 [History] Nitroglycerin [Nitrostat] 0.4 mg SL DAILY 12/13/19 [History] Prochlorperazine [Compazine] 10 mg PO Q6H 12/13/19 [History] Vitamin B Complex 1 each PO DAILY 12/13/19 [History] atorvaSTATin [Lipitor] 40 mg PO BEDTIME 12/13/19 [History] dexAMETHasone [Dexamethasone] 4 mg PO DAILY 12/13/19 [History] Past Medical History HEENT History: Reports: Cataract, Other (See Below) Other HEENT History: NUCLEAR SCLEROSIS OF BOTH EYES Cardiovascular History: Reports: Blood Clots/VTE/DVT, High Cholesterol, Hypertension, NM, Stents Other Cardiovascular History: SUPRAVENTRICULAR PREMATURE BEATS, cardiac stents x 1 Respiratory History: Reports: None, PE Gastrointestinal History: Reports: Colon Polyp, Diverticulosis, GERD, Other (See Below) Other Gastrointestinal History: hx colon & liver CA Genitourinary History: Reports: Dialysis, Renal Disease, Other (See Below) Other Genitourinary History: pT REPORTS right kidney functioning well/ has been on dialysis before; LEFT KIDNEY REPORTED NO FUNCTION, hx anaplasmosis Other Musculoskeletal History: MENISCUS TEAR LEFT KNEE Neurological History: Reports: None Psychiatric History: Reports: Anxiety, Depression Endocrine/Metabolic History: Reports: Hypothyroidism, Obesity/BMI 30+ Other Endocrine/Metabolic History: HYPERURICEMIA Hematologic History: Reports: Anemia, Anticoagulation Therapy Immunologic History: Reports: None Oncologic (Cancer) History: Reports: Colon, Liver Other Oncologic History: began chemotherapy for colon cancer Dermatologic History: Reports: None - Infectious Disease History Infectious Disease History: Reports: Chicken Pox, Influenza - Past Surgical History Head Surgeries/Procedures: Reports: None HEENT Surgical History: Reports: Cataract Surgery, Naso-Sinus Surgery, Tonsillectomy Other HEENT Surgeries/Procedures: tonsilectomy, nasosinus surgery, R cataract surgery Cardiovascular Surgical History: Reports: Coronary Artery Stent GI Surgical History: Reports: Colon, Colonoscopy Other GI Surgeries/Procedures: SIGMOIDOSCOPY Male Surgical History: Reports: Vasectomy Other Male Surgeries/Procedures: CYSTOURETHROSCOPY, RENAL SCAN Musculoskeletal Surgical History: Reports: Arthroscopic Knee, Arthroscopic Procedure Other Musculoskeletal Surgeries/Procedures:: TENDON SHEATH INCISION, L knee scope Oncologic Surgical History: Reports: Other (See Below) Other Oncologic Surgeries/Procedures: colon resection Social & Family History - Family History Family Medical History: No Pertinent Family History - Tobacco Use Tobacco Use Status *Q: Former Tobacco User Years of Tobacco use: 25 Used Tobacco, but Quit: Yes Month/Year Tobacco Last Used: jun - Caffeine Use Caffeine Use: Reports: Coffee - Alcohol Use Days Per Week of Alcohol Use: 1 Number of Drinks Per Day: 2 Total Drinks Per Week: 2 - Recreational Drug Use Recreational Drug Use: No ED ROS GENERAL - Review of Systems Review Of Systems: See Below Constitutional: Reports: Fever, Chills, Malaise, Weakness HEENT: Reports: No Symptoms Respiratory: Reports: Shortness of Breath, Cough, Sputum Cardiovascular: Reports: No Symptoms GI/Abdominal: Reports: No Symptoms : Reports: No Symptoms Musculoskeletal: Reports: No Symptoms Skin: Reports: No Symptoms Neurological: Reports: No Symptoms Psychiatric: Reports: No Symptoms ED EXAM, GENERAL - Physical Exam Exam: See Below Exam Limited By: No Limitations General Appearance: Alert, No Apparent Distress Eye Exam: Bilateral Eye: PERRL Nose: Normal Inspection, Normal Mucosa Throat/Mouth: Normal Inspection, Normal Lips Head: Atraumatic Neck: Normal Inspection, Supple, Non-Tender, Full Range of Motion Respiratory/Chest: No Respiratory Distress, No Accessory Muscle Use, Decreased Breath Sounds Cardiovascular: Normal Peripheral Pulses, Regular Rate, Rhythm, No Edema, No Gallop, No JVD GI/Abdominal: Normal Bowel Sounds, Soft, Non-Tender, No Organomegaly Back Exam: Normal Inspection, Full Range of Motion Extremities: Normal Inspection Neurological: Alert, Oriented, CN II-XII Intact, Normal Cognition Course - Vital Signs Text/Narrative:: Labs/EKG/CXR was discussed with patient and his COVID-pos CXR-see result NS @125 ml/hr Decadron 10 mg IV x1 Remdesivir 200 mg IV x` Last Recorded V/S: Last Vital Signs Temp 37.5 C 05/27/20 09:00 Pulse 85 05/27/20 09:00 Resp 24 H 05/27/20 09:00 BP 120/62 05/27/20 09:00 Pulse Ox 88 L 05/27/20 09:00 - Orders/Labs/Meds Orders: Active Orders 24 hr Category Date Time Status EKG Documentation Completion [RC] ASDIRECTED Care 05/27/20 09:52 Active Chest 1V Frontal [CR] Stat Exams 05/27/20 09:52 Taken CULTURE BLOOD [BC] Urgent Lab 05/27/20 09:35 Received CULTURE BLOOD [BC] Urgent Lab 05/27/20 09:45 Received Sodium Chloride 0.9% @ 125 MLS/HR (1000ml) Med 05/27/20 11:15 Ordered Sodium Chloride 0.9% [Normal Saline] 1,000 ml IV ASDIRECTED Sodium Chloride 0.9% [Saline Flush] Med 05/27/20 09:50 Active 10 ml FLUSH ASDIRECTED PRN Blood Culture x2 Reflex Set [OM.PC] Urgent Oth 05/27/20 09:50 Ordered Isolation [COMM] Routine Oth 05/27/20 09:53 Ordered Saline Lock Insert [OM.PC] Routine Oth 05/27/20 09:50 Ordered EKG 12 Lead [EK] Routine Ther 05/27/20 09:52 Ordered Medication Orders Sodium Chloride (Normal Saline) 1,000 mls @ 125 mls/hr IV ASDIRECTED SAIDA Sodium Chloride (Saline Flush) 10 ml FLUSH ASDIRECTED PRN PRN Reason: Keep Vein Open Labs: Laboratory Tests 05/27/20 05/27/20 05/27/20 Range/Units 09:45 09:45 09:45 WBC 1.9 L* (3.2-10.1) x10-3/uL RBC 3.76 L (3.90-5.90) x10(6)uL Hgb 12.7 L (12.9-17.7) g/dL Hct 38.7 (38.3-50.1) % MCV 102.9 H (80.8-98.7) fL MCH 33.8 H (27.0-33.3) pg MCHC 32.9 (28.7-35.3) g/dL RDW 20.0 H (12.4-15.0) % Plt Count 72 L (117-477) x10(3)uL MPV 8.5 (6.7-11.0) fL Add Manual Diff Yes Neutrophils % (Manual) 52 (46-82) % Lymphocytes % (Manual) 44 H (13-37) % Monocytes % (Manual) 4 (4-12) % Sodium 138 (135-145) mmol/L Potassium 4.4 (3.5-5.3) mmol/L Chloride 104 (100-110) mmol/L Carbon Dioxide 23 (21-32) mmol/L BUN 20 H (7-18) mg/dL Creatinine 1.6 H (0.70-1.30) mg/dL Est Cr Clr Drug Dosing 47.86 mL/min Estimated GFR (MDRD) 43 L (>60) BUN/Creatinine Ratio 12.5 (9-20) Glucose 106 (80-116) mg/dL Lactic Acid (0.4-2.0) mmol/L Calcium 8.4 L (8.6-10.2) mg/dL Total Bilirubin 0.6 (0.1-1.3) mg/dL AST 57 H D (5-25) IU/L ALT 36 D (12-36) U/L Alkaline Phosphatase 73 (56-112) IU/L Troponin I 14.5 (4.0-60.3) pg/mL NT-Pro-B Natriuret Pep 313 H (<=125) pg/mL Total Protein 6.9 (6.0-8.0) g/dL Albumin 2.8 L (3.2-4.6) g/dL Globulin 4.1 g/dL Albumin/Globulin Ratio 0.7 SARS-CoV-2 RNA (FLYNN) (NEGATIVE) 05/27/20 05/27/20 Range/Units 09:45 09:50 WBC (3.2-10.1) x10-3/uL RBC (3.90-5.90) x10(6)uL Hgb (12.9-17.7) g/dL Hct (38.3-50.1) % MCV (80.8-98.7) fL MCH (27.0-33.3) pg MCHC (28.7-35.3) g/dL RDW (12.4-15.0) % Plt Count (117-477) x10(3)uL MPV (6.7-11.0) fL Add Manual Diff Neutrophils % (Manual) (46-82) % Lymphocytes % (Manual) (13-37) % Monocytes % (Manual) (4-12) % Sodium (135-145) mmol/L Potassium (3.5-5.3) mmol/L Chloride (100-110) mmol/L Carbon Dioxide (21-32) mmol/L BUN (7-18) mg/dL Creatinine (0.70-1.30) mg/dL Est Cr Clr Drug Dosing mL/min Estimated GFR (MDRD) (>60) BUN/Creatinine Ratio (9-20) Glucose (80-116) mg/dL Lactic Acid 1.3 (0.4-2.0) mmol/L Calcium (8.6-10.2) mg/dL Total Bilirubin (0.1-1.3) mg/dL AST (5-25) IU/L ALT (12-36) U/L Alkaline Phosphatase (56-112) IU/L Troponin I (4.0-60.3) pg/mL NT-Pro-B Natriuret Pep (<=125) pg/mL Total Protein (6.0-8.0) g/dL Albumin (3.2-4.6) g/dL Globulin g/dL Albumin/Globulin Ratio SARS-CoV-2 RNA (FLYNN) Positive H (NEGATIVE) Meds: Medications Generic Name Dose Route Start Last Admin Trade Name Freq PRN Reason Stop Dose Admin Sodium Chloride 1,000 mls @ 125 mls/hr 05/27/20 11:15 Normal Saline IV ASDIRECTED SAIDA Sodium Chloride 10 ml 05/27/20 09:50 Saline Flush FLUSH ASDIRECTED PRN Keep Vein Open Discontinued Medications Generic Name Dose Route Start Last Admin Trade Name Freq PRN Reason Stop Dose Admin Acetaminophen 1,000 mg 05/27/20 10:41 05/27/20 10:50 Tylenol Extra Strength PO 05/27/20 10:42 1,000 mg ONETIME ONE Administration Dexamethasone 10 mg 05/27/20 11:02 Dexamethasone IVPUSH 05/27/20 11:03 ONETIME ONE Departure - Departure Time of Disposition: 11:30 Disposition: DC/Tfer to Acute Hospital 02 Condition: Good Clinical Impression: COVID-19, Hypoxemia, Dehydration - Discharge Information Referrals: Abundio Aguilar MD [Primary Care Provider] - Sepsis Event Note (ED) - Evaluation Sepsis Screening Result: Possible Sepsis Risk - Focused Exam Vital Signs: Vital Signs Temp Pulse Resp BP Pulse Ox 05/27/20 09:00 37.5 C 85 24 H 120/62 88 L - My Orders Last 24 Hours: My Active Orders 05/27/20 09:35 CULTURE BLOOD [BC] Urgent 05/27/20 09:45 CULTURE BLOOD [BC] Urgent 05/27/20 09:50 Sodium Chloride 0.9% [Saline Flush] 10 ml FLUSH ASDIRECTED PRN Blood Culture x2 Reflex Set [OM.PC] Urgent Saline Lock Insert [OM.PC] Routine 05/27/20 09:52 EKG Documentation Completion [RC] ASDIRECTED Chest 1V Frontal [CR] Stat EKG 12 Lead [EK] Routine 05/27/20 09:53 Isolation [COMM] Routine 05/27/20 11:15 Sodium Chloride 0.9% @ 125 MLS/HR (1000ml) Sodium Chloride 0.9% [Normal Saline] 1,000 ml IV ASDIRECTED - Assessment/Plan Last 24 Hours: My Active Orders 05/27/20 09:35 CULTURE BLOOD [BC] Urgent 05/27/20 09:45 CULTURE BLOOD [BC] Urgent 05/27/20 09:50 Sodium Chloride 0.9% [Saline Flush] 10 ml FLUSH ASDIRECTED PRN Blood Culture x2 Reflex Set [OM.PC] Urgent Saline Lock Insert [OM.PC] Routine 05/27/20 09:52 EKG Documentation Completion [RC] ASDIRECTED Chest 1V Frontal [CR] Stat EKG 12 Lead [EK] Routine 05/27/20 09:53 Isolation [COMM] Routine 05/27/20 11:15 Sodium Chloride 0.9% @ 125 MLS/HR (1000ml) Sodium Chloride 0.9% [Normal Saline] 1,000 ml IV ASDIRECTED
[2020-05-27] MEDS ORDERED: REMDESIVIR 200 MG in Sodium Chloride 0.9% 250 ML IV ONE (11:26)
[2020-05-27 14:56] VITALS: BP 123/66; PULSE 72
== END 2020-05-27 13:25 ==
LOC: FB.ED 09:00
DX: U07.1 COVID-19 (principal); E86.0 Dehydration; R09.02 Hypoxemia; I10 Essential (primary) hypertension; E78.00 Pure hypercholesterolemia, unspecified; I25.2 Old myocardial infarction; E03.9 Hypothyroidism, unspecified; D64.9 Anemia, unspecified; E66.9 Obesity, unspecified; Z68.37 Body mass index [BMI] 37.0-37.9, adult; Z87.891 Personal history of nicotine dependence; Z79.01 Long term (current) use of anticoagulants; Z79.899 Other long term (current) drug therapy; Z79.82 Long term (current) use of aspirin; Z79.02 Long term (current) use of antithrombotics/antiplatelets
CPT/HCPCS: 36415; 71045; 80053; 83605; 83880; 84484; 85025; 87040; 87804; 87804-59; 93005; 96365; 96375; 99285-25; A9270-GY; J1100; J7030; J7050; U0002